=== PATIENT | female | born 1995 | race Caucasian/White ===

== ENCOUNTER 2025-01-26 18:43 | Emergency (ER) | payer OTHER, SELFPAY ==
--- OUTSIDE RECORDS SUMMARY | 2024-12-11 14:45 | XMS_ITS | Encounter Summary ---
Author Organization [facility] Address [address] [place] [address] Care Team Providers Care Roving Teller Name Role Phone RichyPromise osuna Sierra NICHOLSON Primary Care Provider Reason for Visit * Reason Comments Contact Lens Visit Encounter Details Date Type Department Care Team (Late st Contact Info) Description 12/11/2024 3:45 PM EDT Office Visit [facility] [address] [place] [address] French Corral, OD [address] [address] Keratoconus of both eyes (Primary [...] 3:45 PM EDT 12/11/2024 Subjective Patient ID: Johana Higginbotham is a 29 y.o. female. Chief [...] DAYS (Patient not taking: Reported on 11/05/2024) fgofeqejpznjgyr-puzpqrnpznaasno-QK 30-2-10 MG/5ML syrup TAKE 1 2 TEASPOON [...] tablet (Patient not taking: Reported on 11/05/2024) vxxolhjwldao-gbfxejua-lannj acid-coenzyme q10 (Preservision AREDS 2) capsule Take [...] Description 02/03/2025 11:00 AM EST Office Visit [facility] [address] [place] [address] Roma Vaz Rekha [address] [place] [id number] 04/23/2025 9:30 AM EST Office Visit [facility] [address] [place] [address] Rashid Vale MD [address] [address] documented as of this encounter [...] documented as of this encounter Care Teams Roving Teller Relationship Specialty Start Date End Date Promise Green DO [address] [place] [address] PCP - General 09/21/20 documented as of this encounter
[2025-01-26 18:45] VITALS: BP 133/84; BP 133/94; PULSE 96; RESP 16; TEMP 37.2; O2SAT 99; BMI 34.7
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
--- NOTE | 2025-01-26 19:09 | PC.NURSE ---
heart tones obtained. 147 bpm
--- NOTE | 2025-01-26 19:12 | PC.NURSE ---
Report received from Georgette JACKSON Pt awake alert and oriented Skin pink warm and dry Resp full and easy Speech clear and appropriate. at bedside
--- NOTE | 2025-01-26 19:18 | PC.NURSE ---
OB avionics technician paged for Dr. Barboza
--- NOTE | 2025-01-26 19:19 | PC.NURSE ---
Dr. Barboza speaking with OB station captain
[2025-01-26 19:22] LABS: Microscopic, Urine URINE MICROSCOPIC (MICROSCOPIC)
--- OUTSIDE RECORDS SUMMARY | 2025-01-26 19:30 | XMS_ITS | Continuity of Care Document ---
Author Organization [facility] [employer] [facility] Address [address] [place] [address] Assessment No assessment recorded. Plan of Treatment Reminders Order Date Submit Date Provider Last Modified By Organization Details Last Modified Time Details Appointments 2024 09:30A Prateek Kern III, MD Not available Not available Not available ULTRASOUN D 60 2024 09:00A M [email or web address]_Ultr asound 2 Not available Not available Not available 2024 09:45A M Peter Kern III, MD Not available Not available Not available Lab urinalysi s, dipstick 2024 025 [email or web address] [facility], [address] [facility], [place], [address], 01/14/2025 09:16:19 CBC w/ auto diff 2024 025 [facility] ([facility]), [address] [place], [address], 01/15/2025 08:13:55 RPR (rapid plasma reagin), serum 2024 025 [facility] [address] [place], [address], 01/15/2025 08:13:56 glucose tolerance test, post-50G, 1-hour 2024 025 [facility] ([facility]), [address], [place], [address], 01/15/2025 08:13:56 Referral None recorded. Procedures None recorded. Surgeries None recorded. Imaging US, obstetric , follow-up 2024 [email or web address] [facility], [facility], [place], [address], 01/14/2025 10:16:01 Medication Orders None recorded. Patient TargetsNo targets recorded. Patient Instructions Encounter Date Encounter Id Patient Instructions Last Modified By Organization Details Last Modified Time 01/14/2025 [id number] counting your baby's kicks: care instructions [email or web address] Not available 01/14/2025 09:16:19 preeclampsia education [email or web address] Not available 01/14/2025 09:16:20 labor precautions [email or web address] Not available 01/14/2025 09:16:20 Reason for Referral None Reported. Results Created Date Observation Date Name Description Value Unit Range Abnormal Flag Note LastModifiedBy Organization Detail LastModifiedTime 08/21/19 25 08/24/2024 TOXAS SURE FLEX 19, UR summary report FINAL ===== ===== ===== ===== ===== ===== ===== ===== ===== ===== ===== ===== ===== === ToxAs sure Flex 19, Ur ===== ===== ===== ===== ===== ===== ===== ===== ===== ===== ===== ===== ===== === Test Resul t Flag Units NO DRUGS DETEC ISABELL. ===== ===== ===== ===== ===== ===== ===== ===== ===== ===== ===== ===== ===== === Test Resul t Flag Units Ref Range Creat inine 60 mg/dL >=20 ===== ===== ===== ===== ===== ===== ===== ===== ===== ===== ===== ===== ===== === Decla red Medic ation s: Medic ation list was not provi ded. ===== ===== ===== ===== ===== ===== ===== ===== ===== ===== ===== ===== ===== === For clini rebecca consu ltati on, pleas e call . ===== ===== ===== ===== ===== ===== ===== ===== ===== ===== ===== ===== ===== === Not Available [facility] ([facility]) [address] [place], [address], 08/24/2024 20:11:18 08/21/19 25 08/24/2024 TOXAS SURE FLEX 19, UR pdf . Not Available [facility] ([facility]) [address] [place], [address], 08/24/2024 20:11:18 08/21/19 25 08/24/2024 TOXAS SURE FLEX 19, UR creatinine 60 mg/dL >=20 REFER ENCE RANGE : Ref Range >=20 Not Available [facility] ([facility]) [address] [place], [address], 08/24/2024 20:11:18 08/21/19 25 08/24/2024 TOXAS SURE FLEX 19, UR amphetamines ia Negati ve NG/mL cutoff :300 Not Available [facility] ([facility]) [address] [facility], [place], [address], 08/24/2024 20:11:18 08/21/19 25 08/24/2024 TOXAS SURE FLEX 19, UR benzodiazepi evie Negati ve Not Available [facility] ([facility]) [address] [place], [address], 08/24/2024 20:11:18 08/21/19 25 08/24/2024 TOXAS SURE FLEX 19, UR diazepam Not Detect ed NG/mg _crea t Not Available [facility] ([facility]) [address] [facility], [place], [address], 08/24/2024 20:11:18 08/21/19 25 08/24/2024 TOXAS SURE FLEX 19, UR desmethyldia zepam Not Detect ed NG/mg _crea t Not Available [facility] ([facility]) [address] [facility], [place], [address], 08/24/2024 20:11:18 08/21/19 25 08/24/2024 TOXAS SURE FLEX 19, UR oxazepam Not Detect ed NG/mg _crea t Not Available [facility] ([facility]) [address] [facility], [place], [address], 08/24/2024 20:11:18 08/21/19 25 08/24/2024 TOXAS SURE FLEX 19, UR temazepam Not Detect ed NG/mg _crea t Expec isabell metab olism of benzo diaze pine class drugs : Paren t Drug Detec isabell Metab olite s ----- ----- - ----- ----- ----- ----- Diaze ervin: Desme thyld iazep am, Temaz epam, Oxaze ervin Chlor diaze poxid e: Desme thyld iazep am, Oxaze ervin Clora zepat e: Desme thyld iazep am, Oxaze ervin Halaz epam: Desme thyld iazep am, Oxaze ervin Temaz epam: Oxaze ervin Oxaze ervin: None Not Available [facility] ([facility]) [address] [place], [address], 08/24/2024 20:11:18 08/21/19 25 08/24/2024 TOXAS SURE FLEX 19, UR alprazolam Not Detect ed NG/mg _crea t Not Available [facility] ([facility]) [address] [place], [address], 08/24/2024 20:11:18 08/21/19 25 08/24/2024 TOXAS SURE FLEX 19, UR alpha-hydrox yalprazolam Not Detect ed NG/mg _crea t Not Available [facility] ([facility]) [address] [place], [address], 08/24/2024 20:11:18 08/21/19 25 08/24/2024 TOXAS SURE FLEX 19, UR desalkylflur azepam Not Detect ed NG/mg _crea t Not Available [facility] ([facility]) [address] [place], [address], 08/24/2024 20:11:18 08/21/19 25 08/24/2024 TOXAS SURE FLEX 19, UR lorazepam Not Detect ed NG/mg _crea t Not Available [facility] ([facility]) [address] [place], [address], 08/24/2024 20:11:18 08/21/19 25 08/24/2024 TOXAS SURE FLEX 19, UR alpha-hydrox ytriazolam Not Detect ed NG/mg _crea t Not Available [facility] ([facility]) [address] [place], [address], 08/24/2024 20:11:18 08/21/19 25 08/24/2024 TOXAS SURE FLEX 19, UR clonazepam Not Detect ed NG/mg _crea t Not Available [facility] ([facility]) [address] [place], [address], 08/24/2024 20:11:18 08/21/19 25 08/24/2024 TOXAS SURE FLEX 19, UR 7-aminoclona zepam Not Detect ed NG/mg _crea t Not Available [facility] ([facility]) [address] [place], [address], 08/24/2024 20:11:18 08/21/19 25 08/24/2024 TOXAS SURE FLEX 19, UR midazolam Not Detect ed NG/mg _crea t Not Available [facility] ([facility]) [address] [place], [address], 08/24/2024 20:11:18 08/21/19 25 08/24/2024 TOXAS SURE FLEX 19, UR alpha-hydrox ymidazolam Not Detect ed NG/mg _crea t Not Available [facility] ([facility]) [address] [place], [address], 08/24/2024 20:11:18 08/21/19 25 08/24/2024 TOXAS SURE FLEX 19, UR flunitrazepa m Not Detect ed NG/mg _crea t Not Available [facility] ([facility]) [address] [place], [address], 08/24/2024 20:11:18 08/21/19 25 08/24/2024 TOXAS SURE FLEX 19, UR desmethylflu nitrazepam Not Detect ed NG/mg _crea t Not Available [facility] ([facility]) [address] [place], [address], 08/24/2024 20:11:18 08/21/19 25 08/24/2024 TOXAS SURE FLEX 19, UR cocaine metabolite ia Negati ve NG/mL cutoff :150 Not Available [facility] ([facility]) [address] [place], [address], 08/24/2024 20:11:18 08/21/19 25 08/24/2024 TOXAS SURE FLEX 19, UR ethanol biomarkers ia Negati ve NG/mL cutoff :500 Not Available [facility] ([facility]) [address] [place], [address], 08/24/2024 20:11:18 08/21/19 25 08/24/2024 TOXAS SURE FLEX 19, UR cannabinoids ia Negati ve NG/mL cutoff :20 Not Available [facility] ([facility]) [address] [place], [address], 08/24/2024 20:11:18 08/21/19 25 08/24/2024 TOXAS SURE FLEX 19, UR 6-acetylmorp viola ia Negati ve NG/mL cutoff :10 Not Available [facility] ([facility]) [address] [place], [address], 08/24/2024 20:11:18 08/21/19 25 08/24/2024 TOXAS SURE FLEX 19, UR opiate class ia Negati ve NG/mL cutoff :100 Not Available [facility] ([facility]) [address] [place], [address], 08/24/2024 20:11:18 08/21/19 25 08/24/2024 TOXAS SURE FLEX 19, UR oxycodone class ia Negati ve NG/mL cutoff :100 Not Available [facility] ([facility]) [address] [place], [address], 08/24/2024 20:11:18 08/21/19 25 08/24/2024 TOXAS SURE FLEX 19, UR methadone ia Negati ve NG/mL cutoff :100 Not Available [facility] ([facility]) [address] [place] [address], [address], 08/24/2024 20:11:18 08/21/19 25 08/24/2024 TOXAS SURE FLEX 19, UR methadone mtb ia Negati ve NG/mL cutoff :100 Not Available [facility] ([facility]) [address] [place] [address], [address], 08/24/2024 20:11:18 08/21/19 25 08/24/2024 TOXAS SURE FLEX 19, UR buprenorphin e ia Negati ve NG/mL cutoff :5.0 Not Available [facility] ([facility]) [address] [place] [address], [address], 08/24/2024 20:11:18 08/21/19 25 08/24/2024 TOXAS SURE FLEX 19, UR fentanyl ia Negati ve NG/mL cutoff :2.0 Not Available [facility] ([facility]) [address] [place] [address], [address], 08/24/2024 20:11:18 08/21/19 25 08/24/2024 TOXAS SURE FLEX 19, UR tapentadol ia Negati ve NG/mL cutoff :200 Not Available [facility] ([facility]) [address] [place] [address], [address], 08/24/2024 20:11:18 08/21/19 25 08/24/2024 TOXAS SURE FLEX 19, UR propoxyphene ia Negati ve NG/mL cutoff :300 Not Available [facility] ([facility]) [address] [place] [address], [address], 08/24/2024 20:11:18 08/21/19 25 08/24/2024 TOXAS SURE FLEX 19, UR tramadol ia Negati ve NG/mL cutoff :200 Not Available [facility] ([facility]) [address] [place] [address], [address], 08/24/2024 20:11:18 08/21/19 25 08/24/2024 TOXAS SURE FLEX 19, UR methylphenid ate ia Negati ve NG/mL cutoff :100 Not Available [facility] ([facility]) [address] [place], [address], 08/24/2024 20:11:18 08/21/19 25 08/24/2024 TOXAS SURE FLEX 19, UR barbiturates ia Negati ve NG/mL cutoff :200 Not Available [facility] ([facility]) [address] [place], [address], 08/24/2024 20:11:18 08/21/19 25 08/24/2024 TOXAS SURE FLEX 19, UR phencyclidin e ia Negati ve NG/mL cutoff :25 Not Available [facility] ([facility]) [address] [place], [address], 08/24/2024 20:11:18 08/21/19 25 08/24/2024 TOXAS SURE FLEX 19, UR gabapentin ia Negati ve ug/mL cutoff :1.0 Not Available [facility] ([facility]) [address] [place], [address], 08/24/2024 20:11:18 08/21/19 25 08/24/2024 TOXAS SURE FLEX 19, UR anticonvulsa nts Negati ve Not Available [facility] ([facility]) [address] [place], [address], 08/24/2024 20:11:18 08/21/19 25 08/24/2024 TOXAS SURE FLEX 19, UR pregabalin Not Detect ed Not Available [facility] ([facility]) [address] [place], [address], 08/24/2024 20:11:18 08/21/19 25 08/24/2024 TOXAS SURE FLEX 19, UR carisoprodol ia Negati ve NG/mL cutoff :100 Not Available [facility] ([facility]) [address] [place], [address], 08/24/2024 20:11:18 08/21/19 25 08/21/2024 PREGN SARAH, INITI AL SCREE N HBsAg screen Negati ve negati ve Not Available [facility] ([facility]) [address] [facility], [place], [address], 08/24/2024 20:11:19 08/21/19 25 08/21/2024 PREGN SARAH, INITI AL SCREE N HCV Ab Non Reacti ve non reacti ve Not Available [facility] ([facility]) [address] [facility], [place], [address], 08/24/2024 20:11:19 08/21/19 25 08/21/2024 PREGN SARAH, INITI AL SCREE N interpretati on: Commen t Not infec isabell with HCV unles s early or acute infec tion is suspe cted (whic h may be delay ed in an immun ocomp romis ed indiv idual ), or other evide nce exist s to indic ate HCV infec tion. Not Available [facility] ([facility]) [address] [facility], [place], [address], 08/24/2024 20:11:19 08/21/19 25 08/21/2024 PREGN SARAH, INITI AL SCREE N RPR Non Reacti ve non reacti ve Not Available [facility] ([facility]) [address] [place], [address], 08/24/2024 20:11:19 08/21/1908/21/2024 PREGN SARAH, INITI AL SCREE N rubella antibodies, IgG 8.30 index immune >0.99 Non-i mmune <0.90 Equiv ocal 0.90 - 0.99 Immun e >0.99 Not Available [facility] ([facility]) [address] [facility], [place], [address], 08/24/2024 20:11:19 08/21/19 25 08/21/2024 PREGN SARAH, INITI AL SCREE N ABO grouping AB Not Available [facility] ([facility]) [address] [facility], [place], [address], 08/24/2024 20:11:19 08/21/19 25 08/21/2024 PREGN SARAH, INITI AL SCREE N Rh factor Positi ve Pleas e note: Prior recor ds for this patie nt's ABO / Rh type are not avail able for addit ional verif icati on. Not Available [facility] ([facility]) [address] [place], [address], 08/24/2024 20:11:19 08/21/19 25 08/21/2024 PREGN SARAH, INITI AL SCREE N antibody screen Negati ve negati ve Not Available [facility] ([facility]) [address] [place], [address], 08/24/2024 20:11:19 08/21/19 25 08/21/2024 PREGN SARAH, INITI AL SCREE N HIV Ab/P24 Ag screen Non Reacti ve non reacti ve HIV-1 /HIV- 2 antib odies and HIV-1 p24 antig en were NOT detec isabell. There is no labor atory evide nce of HIV infec tion. HIV Negat kurt Not Available [facility] ([facility]) [address] [place], [address], 08/24/2024 20:11:19 08/21/19 25 08/21/2024 PREGN SARAH, INITI AL SCREE N WBC 9.9 x10e3 /uL 3.4-10 .8 normal Not Available [facility] ([facility]) [address] [place], [address], 08/24/2024 20:11:19 08/21/19 25 08/21/2024 PREGN SARAH, INITI AL SCREE N RBC 4.07 x10e6 /uL 3.77-5 .28 normal Not Available [facility] ([facility]) [address] [place], [address], 08/24/2024 20:11:19 08/21/19 25 08/21/2024 PREGN SARAH, INITI AL SCREE N hemoglobin 12.1 g/dL 11.1-1 5.9 normal Not Available [facility] ([facility]) [address] [facility], [place], [address], 08/24/2024 20:11:19 08/21/19 25 08/21/2024 PREGN SARAH, INITI AL SCREE N hematocrit 38.2 % 34.0-4 6.6 normal Not Available [facility] ([facility]) [address] [place], [address], 08/24/2024 20:11:19 08/21/19 25 08/21/2024 PREGN SARAH, INITI AL SCREE N MCV 94 fL 79-97 normal Not Available [facility] ([facility]) [address] [place], [address], 08/24/2024 20:11:19 08/21/19 25 08/21/2024 PREGN SARAH, INITI AL SCREE N MCH 29.7 pg 26.6-3 3.0 normal Not Available [facility] ([facility]) [address] [place], [address], 08/24/2024 20:11:19 08/21/19 25 08/21/2024 PREGN SARAH, INITI AL SCREE N MCHC 31.7 g/dL 31.5-3 5.7 normal Not Available [facility] ([facility]) [address] [place], [address], 08/24/2024 20:11:19 08/21/19 25 08/21/2024 PREGN SARAH, INITI AL SCREE N RDW 12.9 % 11.7-1 5.4 Not Available [facility] ([facility]) [address] [place], [address], 08/24/2024 20:11:19 08/21/19 25 08/21/2024 PREGN SARAH, INITI AL SCREE N platelets 335 x10e3 /uL 150-45 0 normal Not Available [facility] ([facility]) [address] [facility], [place], [address], 08/24/2024 20:11:19 08/21/19 25 08/21/2024 PREGN SARAH, INITI AL SCREE N neutrophils 68 % not estab. normal Not Available [facility] ([facility]) [address] [facility], [place], [address], 08/24/2024 20:11:19 08/21/19 25 08/21/2024 PREGN SARAH, INITI AL SCREE N lymphs 22 % not estab. normal Not Available [facility] ([facility]) [address] [place], [address], 08/24/2024 20:11:19 08/21/19 25 08/21/2024 PREGN SARAH, INITI AL SCREE N monocytes 7 % not estab. normal Not Available [facility] ([facility]) [address] [place], [address], 08/24/2024 20:11:19 08/21/19 25 08/21/2024 PREGN SARAH, INITI AL SCREE N eos 2 % not estab. normal Not Available [facility] ([facility]) [address] [place], [address], 08/24/2024 20:11:19 08/21/19 25 08/21/2024 PREGN SARAH, INITI AL SCREE N basos 1 % not estab. normal Not Available [facility] ([facility]) [address] [place], [address], 08/24/2024 20:11:19 08/21/19 25 08/21/2024 PREGN SARAH, INITI AL SCREE N immature cells HEAD [employer] DIRECTOR Not Available [facility] ([facility]) [address] [place], [address], 08/24/2024 20:11:19 08/21/19 25 08/21/2024 PREGN SARAH, INITI AL SCREE N neutrophils (absolute) 6.8 x10e3 /uL 1.4-7. 0 normal Not Available [facility] ([facility]) [address] [place], [address], 08/24/2024 20:11:19 08/21/19 25 08/21/2024 PREGN SARAH, INITI AL SCREE N lymphs (absolute) 2.2 x10e3 /uL 0.7-3. 1 normal Not Available [facility] ([facility]) [address] [place], [address], 08/24/2024 20:11:19 08/21/19 25 08/21/2024 PREGN SARAH, INITI AL SCREE N monocytes(ab solute) 0.7 x10e3 /uL 0.1-0. 9 normal Not Available [facility] ([facility]) [address] [place], [address], 08/24/2024 20:11:19 08/21/19 25 08/21/2024 PREGN SARAH, INITI AL SCREE N eos (absolute) 0.2 x10e3 /uL 0.0-0. 4 normal Not Available [facility] ([facility]) [address] [place], [address], 08/24/2024 20:11:19 08/21/19 25 08/21/2024 PREGN SARAH, INITI AL SCREE N baso (absolute) 0.1 x10e3 /uL 0.0-0. 2 normal Not Available [facility] ([facility]) [address] [place], [address], 08/24/2024 20:11:19 08/21/19 25 08/21/2024 PREGN SARAH, INITI AL SCREE N immature granulocytes 0 % not estab. Not Available [facility] ([facility]) [address] [facility], [place], [address], 08/24/2024 20:11:19 08/21/19 25 08/21/2024 PREGN SARAH, INITI AL SCREE N immature grans (abs) 0.0 x10e3 /uL 0.0-0. 1 Not Available [facility] ([facility]) [address] [facility], [place], [address], 08/24/2024 20:11:19 08/21/19 25 08/21/2024 PREGN SARAH, INITI AL SCREE N NRBC HEAD [employer] DIRECTOR Not Available [facility] ([facility]) [address] [facility], [place], [address], 08/24/2024 20:11:19 08/21/19 25 08/21/2024 PREGN SARAH, INITI AL SCREE N hematology comments: HEAD START DIRECTOR Not Available [facility] ([facility]) [address] [facility], [place], [address], 08/24/2024 20:11:19 08/21/19 25 08/21/2024 PREGN SARAH, INITI AL SCREE N specific gravity 1.011 1.005- 1.030 normal Not Available [facility] ([facility]) [address] [facility], [place], [address], 08/24/2024 20:11:19 08/21/19 25 08/21/2024 PREGN SARAH, INITI AL SCREE N pH 6.5 5.0-7. 5 normal Not Available [facility] ([facility]) [address] [facility], [place], [address], 08/24/2024 20:11:19 08/21/19 25 08/21/2024 PREGN SARAH, INITI AL SCREE N urine-color Yellow yellow Not Available [facility] ([facility]) [address] [facility], [place], [address], 08/24/2024 20:11:19 08/21/19 25 08/21/2024 PREGN SARAH, INITI AL SCREE N appearance Clear clear Not Available [facility] ([facility]) [address] [place], [address], 08/24/2024 20:11:19 08/21/19 25 08/21/2024 PREGN SARAH, INITI AL SCREE N WBC esterase 1+ negati ve abnormal Not Available [facility] ([facility]) [address] [place], [address], 08/24/2024 20:11:19 08/21/19 25 08/21/2024 PREGN SARAH, INITI AL SCREE N protein Negati ve negati ve/tra ce Not Available [facility] ([facility]) [address] [place], [address], 08/24/2024 20:11:19 08/21/19 25 08/21/2024 PREGN SARAH, INITI AL SCREE N glucose Negati ve negati ve Not Available [facility] ([facility]) [address] [place], [address], 08/24/2024 20:11:19 08/21/19 25 08/21/2024 PREGN SARAH, INITI AL SCREE N ketones Negati ve negati ve Not Available [facility] ([facility]) [address] [place], [address], 08/24/2024 20:11:19 08/21/19 25 08/21/2024 PREGN SARAH, INITI AL SCREE N occult blood Negati ve negati ve Not Available [facility] ([facility]) [address] [place], [address], 08/24/2024 20:11:19 08/21/19 25 08/21/2024 PREGN SARAH, INITI AL SCREE N bilirubin Negati ve negati ve Not Available [facility] ([facility]) [address] [place], [address], 08/24/2024 20:11:19 08/21/19 25 08/21/2024 PREGN SARAH, INITI AL SCREE N urobilinogen ,semi-qn 0.2 mg/dL 0.2-1. 0 normal Not Available [facility] ([facility]) [address] [place], [address], 08/24/2024 20:11:19 08/21/19 25 08/21/2024 PREGN SARAH, INITI AL SCREE N nitrite, urine Negati ve negati ve Not Available [facility] ([facility]) [address] [place], [address], 08/24/2024 20:11:19 08/21/19 25 08/21/2024 PREGN SARAH, INITI AL SCREE N microscopic examination See below: Micro scopi c was indic ated and was perfo rmed. Not Available [facility] ([facility]) [address] [facility], [place], [address], 08/24/2024 20:11:19 08/21/19 25 08/21/2024 PREGN SARAH, INITI AL SCREE N WBC 0-5 /hpf 0 - 5 Not Available [facility] ([facility]) [address] [place], [address], 08/24/2024 20:11:19 08/21/19 25 08/21/2024 PREGN SARAH, INITI AL SCREE N RBC 0-2 /hpf 0 - 2 Not Available [facility] ([facility]) [address] [place], [address], 08/24/2024 20:11:19 08/21/19 25 08/21/2024 PREGN SARAH, INITI AL SCREE N epithelial cells (non renal) 0-10 /hpf 0 - 10 Not Available [facility] ([facility]) [address] [place], [address], 08/24/2024 20:11:19 08/21/19 25 08/21/2024 PREGN SARAH, INITI AL SCREE N epithelial cells (renal) HEAD [employer] DIRECTOR Not Available [facility] ([facility]) [address] [facility], [place], [address], 08/24/2024 20:11:19 08/21/19 25 08/21/2024 PREGN SARAH, INITI AL SCREE N casts None seen /lpf none seen Not Available [facility] ([facility]) [address] [facility], [place], [address], 08/24/2024 20:11:19 08/21/19 25 08/21/2024 PREGN SARAH, INITI AL SCREE N cast type HEAD [employer] DIRECTOR Not Available [facility] ([facility]) [address] [facility], [place], [address], 08/24/2024 20:11:19 08/21/19 25 08/21/2024 PREGN SARAH, INITI AL SCREE N crystals HEAD [employer] DIRECTOR Not Available [facility] ([facility]) [address] [place], [address], 08/24/2024 20:11:19 08/21/19 25 08/21/2024 PREGN SARAH, INITI AL SCREE N crystal type HEAD [employer] DIRECTOR Not Available [facility] ([facility]) [address] [place], [address], 08/24/2024 20:11:19 08/21/19 25 08/21/2024 PREGN SARAH, INITI AL SCREE N mucus threads HEAD [employer] DIRECTOR Not Available [facility] ([facility]) [address] [place], [address], 08/24/2024 20:11:19 08/21/19 25 08/21/2024 PREGN SARAH, INITI AL SCREE N bacteria Few none seen/f ew Not Available [facility] ([facility]) [address] [place], [address], 08/24/2024 20:11:19 08/21/19 25 08/21/2024 PREGN SARAH, INITI AL SCREE N yeast HEAD START DIRECTOR Not Available [facility] ([facility]) [address], [place], [address], 08/24/2024 20:11:19 08/21/19 25 08/21/2024 PREGN SARAH, INITI AL SCREE N trichomonas HEAD START DIRECTOR Not Available [facility] ([facility]) [address], [place], [address], 08/24/2024 20:11:19 08/21/19 25 08/21/2024 PREGN SARAH, INITI AL SCREE N comment HEAD START DIRECTOR Not Available [facility] ([facility]) [address] [place], [address], 08/24/2024 20:11:19 08/21/19 25 08/21/2024 PREGN SARAH, INITI AL SCREE N microscopic examination HEAD START DIRECTOR Not Available [facility] ([facility]) [address] [place], [address], 08/24/2024 20:11:19 08/21/19 25 08/22/2024 PREGN SARAH, INITI AL SCREE N chlamydia trachomatis, SHARDA Negati ve negati ve Not Available [facility] ([facility]) [address] [place], [address], 08/24/2024 20:11:19 08/21/19 25 08/22/2024 PREGN SARAH, INITI AL SCREE N neisseria gonorrhoeae, SHARDA Negati ve negati ve Not Available [facility] ([facility]) [address] [place], [address], 08/24/2024 20:11:19 08/21/19 25 08/22/2024 PREGN SARAH, INITI AL SCREE N urine culture,pren atal, w/gbs Final report Not Available [facility] ([facility]) [address] [place], [address], 08/24/2024 20:11:19 08/21/19 25 08/22/2024 PREGN ALEXANDER SMITH N result 1 No growth Not Available [facility] ([facility]) [address], [place], [address], 08/24/2024 20:11:19 08/21/19 25 08/20/2024 urina lysis , dipst ick Leukocytes Negati ve Not Available [address], [address], 08/20/2024 15:46:47 08/21/19 25 08/20/2024 urina lysis , dipst ick Nitrite negati ve Not Available [address], [address], 08/20/2024 15:46:47 08/21/19 25 08/20/2024 urina lysis , dipst ick Urobilinogen .2 Not Available [address], [address], 08/20/2024 15:46:47 08/21/19 25 08/20/2024 urina lysis , dipst ick Protein Negati ve Not Available [address], [address], 08/20/2024 15:46:47 08/21/19 25 08/20/2024 urina lysis , dipst ick pH 6.0 Not Available [address], [address], 08/20/2024 15:46:47 08/21/19 25 08/20/2024 urina lysis , dipst ick Blood Negati ve Not Available [address], [address], 08/20/2024 15:46:47 08/21/19 25 08/20/2024 urina lysis , dipst ick Specific [place] 1.010 Not Available [address], [address], 08/20/2024 15:46:47 08/21/19 25 08/20/2024 urina lysis , dipst ick Ketone Negati ve Not Available [address], [address], 08/20/2024 15:46:47 08/21/19 25 08/20/2024 urina lysis , dipst ick Bilirubin Negati ve Not Available [address], [address], 08/20/2024 15:46:47 08/21/19 25 08/20/2024 urina lysis , dipst ick Glucose Negati ve Not Available [address], [address], 08/20/2024 15:46:47 08/21/19 25 08/20/2024 urina lysis , dipst ick Appearance Clear Not Available [address], [address], 08/20/2024 15:46:47 08/21/19 25 08/20/2024 urina lysis , dipst ick Color Yellow Not Available [address], [address], 08/20/2024 15:46:47 09/18/19 25 09/24/2024 MATER NIT21 PLUS CORE+ SCA gestation Single ton Not Available [facility] ([facility]) [address], [place], [address], 10/03/2024 13:07:36 09/18/19 25 09/24/2024 MATER NIT21 PLUS CORE+ SCA fraction 13% Not Available [facility] ([facility]) [address], [place], [address], 10/03/2024 13:07:36 09/18/19 25 09/24/2024 MATER NIT21 PLUS CORE+ SCA gestational age > or = 9W: Yes Not Available [facility] ([facility]) [address], [place], [address], 10/03/2024 13:07:36 09/18/19 25 09/24/2024 MATER NIT21 PLUS CORE+ SCA test result Negati ve Not Available [facility] ([facility]) [address], [place], [address], 10/03/2024 13:07:36 09/18/19 25 09/24/2024 MATER NIT21 PLUS CORE+ SCA organic lab worker comments Chelsie Palmer speci men showe d an expec isabell repre senta tion of chrom osome 21, 18 and 13 mater ial. Clini rebecca corre latio n is sugtasneem gilmored. Not Available [facility] ([facility]) [address], [place], [address], 10/03/2024 13:07:36 09/18/19 25 09/24/2024 MATER NIT21 PLUS CORE+ SCA approved by Chelsie roldan MD, PhD, [facility] tor, Se[place] nom Labor atori es Not Available [facility] ([facility]) [address], [place], [address], 10/03/2024 13:07:36 09/18/19 25 09/24/2024 MATER NIT21 PLUS CORE+ SCA trisomy 21 (down syndrome) Negati ve Not Available [facility] ([facility]) [address], [place], [address], 10/03/2024 13:07:36 09/18/19 25 09/24/2024 MATER NIT21 PLUS CORE+ SCA trisomy 18 (saunders syndrome) Negati ve Not Available [facility] ([facility]) [address], [place], [address], 10/03/2024 13:07:36 09/18/19 25 09/24/2024 MATER NIT21 PLUS CORE+ SCA trisomy 13 (patau syndrome) Negati ve Not Available [facility] ([facility]) [address], [place], [address], 10/03/2024 13:07:36 09/18/19 25 09/24/2024 MATER NIT21 PLUS CORE+ SCA sex Commen t Consi stent with Femal e Not Available [facility] ([facility]) [address], [place], [address], 10/03/2024 13:07:36 09/18/19 25 09/24/2024 MATER NIT21 PLUS CORE+ 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 Not Available [facility] ([facility]) [address], [place], [address], 10/03/2024 13:07:36 09/18/19 25 09/24/2024 MATER NIT21 PLUS CORE+ 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 Not Available [facility] ([facility]) [address], [place], [address], 10/03/2024 13:07:36 09/18/19 25 09/24/2024 MATER NIT21 PLUS CORE+ 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 The NPV for SCA and ESS canno t be calcu lated as SCA and ESS are only repor isabell when an abnor malit y is detec isabell. Not Available [facility] ([facility]) [address], [place], [address], 10/03/2024 13:07:36 09/18/19 25 09/24/2024 MATER NIT21 PLUS CORE+ SCA positive predictive value N/A Not Available [facility] ([facility]) [address], [place], [address], 10/03/2024 13:07:36 09/18/19 25 09/24/2024 MATER NIT21 PLUS CORE+ SCA about the test Commen t The Mater niT(R ) 21 PLUS labor atory -deve loped test (LDT) maik zes circu latin g cell- free DNA from a mater nal blood sampl e. This test is used for scree lisa purpo ses and not diagn ostic . Clini rebecca corre latio n is recom je d. Valid ation data on twin pregn ancie s is limit ed and the abili ty of this test to detec t aneup loidy in highe r multi ple gesta tions has not yet been valid ated. Not Available [facility] ([facility]) [address], [place], [address], 10/03/2024 13:07:36 09/18/19 25 09/24/2024 MATER NIT21 PLUS CORE+ SCA test method Commen t Circu latin g cell- free DNA was purif ied from the plasm a compo nent of mater nal blood . The extra cted DNA was then conve rted into a retsCloud DNA ashley ry for aneup loidy maik sis of chrom osome s 21, 18, and 13 via next gener ation seque ncing .[1] Optio nal findi ngs based on the test order inclu de sex chrom osome aneup loidy (SCA) [2], and enhan charles seque ncing serie s (ESS) [3], which will only be repor isabell on as an addit ional findi ng when an abnor malit y is detec isabell. SCA testi ng inclu zuleima infor matio n on X and Y repre senta tion, while ESS testi ng inclu zuleima delet ions in selec isabell regio ns (22q, 15q, 11q, 8q, 5p, 4p, 1p) and triso my of chrom osome s 16 and 22. Not Available [facility] ([facility]) [address], [place], [address], 10/03/2024 13:07:36 09/18/19 25 09/24/2024 MATER NIT21 PLUS CORE+ SCA performance Commen t The perfo rmanc e emma cteri stics of the Mater niT(R ) 21 PLUS labor atory -deve loped test (LDT) have been deter mined in a clini rebecca valid ation study with pregn ant women at incre ased risk for chrom osoma l aneup loidy .[1-4 ] Not Available [facility] ([facility]) [address], [place], [address], 10/03/2024 13:07:36 09/18/19 25 09/24/2024 MATER NIT21 PLUS CORE+ SCA performance characterist ics Note ----- ----- ----- ----- ----- ----- ----- ----- ----- ----- ----- ---- ! Sex ! Accur acy: 99.4% ! !---- ----- ----- ----- ----- ----- ----- ----- ----- ----- ----- ---! ! Marco A n (sejal espinal d syndr ome) ! Est. Sens# ! Est. Spec ! !---- ----- ----- ----- ----- ----- ----- ----- ----- ----- ----- ---! ! Mitcho my 21 (Down Syndr ome) ! 99.1% ! 99.9% ! !---- ----- ----- ----- ----- ----- ----- ----- ----- ----- ----- ---! ! Jadon my 18 ([place] rds Syndr ome) ! >99.9 % ! 99.6% ! !---- ----- ----- ----- ----- ----- ----- ----- ----- ----- ----- ---! ! Mitcho my 13 (Pata u Syndr ome) ! 91.7% ! 99.7% ! !---- ----- ----- ----- ----- ----- ----- ----- ----- ----- ----- ---! ! Sex Chrom osome Valeryp daniel es## ! 96.2% ! 99.7% ! !---- ----- ----- ----- ----- ----- ----- ----- ----- ----- ----- ---! * Divya whyte in ISCA datab ase nstd3 7 [http s://w [email or web address].nc bi.nl m.nih .gov/ dbvar /stud ies/n std37 / ] # Estim ated Sensi tivit y. Sensi tivit y estim ated acros s the obser sriram size distr ibuti on of each syndr ome [per ISCA datab ase nstd3 7] and acros s the range of fract ions obser sriram in routi ne clini rebecca NIPT. Actua l sensi tivit y can also be influ enced by other facto rs such as the size of the event , total seque nce count s, ampli ficat ion bias, or seque nce bias. ## Singl eton gesta tion only. Not Available [facility] ([facility]) [address], [place], [address], 10/03/2024 13:07:36 09/18/19 25 09/24/2024 MATER NIT21 PLUS CORE+ SCA limitations of the test Commen t While the resul ts of these tests are highl y relia ble, disco rdant resul ts, inclu ding inacc urate sex predi ction , may occur due to place ntal, mater nal, or mosai cism or neopl asm; vanis anthony twin; prior mater nal organ trans plant ; or other cause s. These tests are scree lisa tests and not diagn ostic ; they do not repla ce the accur acy and preci adriana of prena alden diagn osis with CVS or amnio cente sis. A patie nt with a posit kurt test resul t shoul d be refer red for marco antonio ic couns eling and offer ed invas kurt prena alden diagn osis for confi rmati on of test resul ts.[5 ] The resul ts of this testi ng, inclu ding the benef its and limit ation s, shoul d be discu ssed with a quali fied healt hcavaibhav provi yeni. Pregn sarah manag ement decis ions, inclu ding termi natio n of the pregn sarah, shoul d not be based on the resul ts of these tests alone . The healt hcavaibhav provi yeni is respo nsibl e for the use of this infor matio n in the manag ement of their patie nt. Sex chrom osoma l aneup loidi es are not repor table for known multi ple gesta tions . A negat kurt resul t does not ensur e an unaff ected pregn sarah nor does it exclu de the possi bilit y of other chrom osoma l abnor malit ies or defec ts which are not a part of these tests . An uninf ormat kurt resul t may be repor isabell, the cause s of which may inclu de, but are not limit ed to, insuf ficie nt seque ncing cover age, noise or artif acts in the regio n, ampli ficat ion or seque ncing bias, or insuf ficie nt fract ion. These tests are not inten ded to ident mike pregn ancie s at risk for neura l tube defec ts or ventr al wall defec ts. Testi ng for whole chrom osome abnor malit ies (incl uding sex chrom osome s) and for subch romos omal abnor malit ies could lead to the poten tial disco very of both and mater nal genom ic abnor malit ies that could have major , minor , or no, clini rebecca signi fican ce. Evalu ating the signi fican ce of a posit kurt or a non-r eport able resul t may invol ve both invas kurt testi ng and addit ional studi es on the mothe r. Such inves tigat ions may lead to a diagn osis of mater nal chrom osoma l or subch romos omal abnor malit ies, which on occas ion may be assoc iated with benig n or malig nant mater nal neopl asms. These tests may not accur ately ident mike tripl oidy, calderon charles rearr angem ents, or the preci se locat ion of subch romos omal dupli catio ns or delet ions; these may be detec isabell by prena alden diagn osis with CVS or amnio cente sis. The abili ty to repor t resul ts may be impac isabell by mater nal BMI, mater nal weigh t, mater nal syste celso lupus eryth emato rachele (SLE) and/o r by certa in pharm aceut ical agent s such as low molec ular weigh t hepar in (for examp le: Loven ox(R) , Xapar in(R) , Clexa ne(R) and Fragm in(R) ). Not Available [facility] ([facility]) [address], [place], [address], 10/03/2024 13:07:36 09/18/19 25 09/24/2024 MATER NIT21 PLUS CORE+ SCA note Chelsie moser Canary. is a subsi diary of Labor atory Corpo ratio n of [employer], using the brand [employer]. This test was devel oped and its perfo rmanc e emma cteri stics deter mined by [employer]. It has not been clear ed or appro sriram by the Food and Drug Admin istra tion. This labor atory is certi fied under the Clini rebecca Labor atory Impro vemen t Amend ments (CLIA ) as quali fied to perfo rm high compl exity clini rebecca labor atory testi ng and accre dited by the Lana boateng of [employer] Patho logis ts (CAP) . If there is futur e clini rebecca need for addin g Mater niT GENOM E testi ng, this speci men will be avail able until term. [facility] sampl es will not be retai vonda beyon d 60 days. [facility] nts will have to send a new sampl e for re-se quenc ing ([facility] Test Code: 22874 4). Not Available [facility] ([facility]) [address], [place], [address], 10/03/2024 13:07:36 09/18/19 25 09/24/2024 MATER NIT21 PLUS CORE+ SCA references Chelsie t 1. Kasey BOATENG, et al. Marco Antonio Med. 2012; 14(3) :296- 305. 2. Daniel HASSAN, et al. Prena t Diag. 2013; 33(6) :591- 597. 3. Tommy C, et al. Clin Chem. 2015 Jun;6 1(4): 608-6 16. 4. Kasey BOATENG, et al. Marco Antonio Med. 2011; 13(11 ):913 -920. 5. ACOG/ SMFM Pract ice Bulle tin No. 226, Dec 2019. Not Available [facility] ([facility]) [address], [place], [address], 10/03/2024 13:07:36 09/18/19 25 09/24/2024 MATER NIT21 PLUS CORE+ SCA pdf . Not Available [facility] ([facility]) [address], [place], [address], 10/03/2024 13:07:36 09/18/19 25 10/03/2024 INHER ITEST (R) CORE PANEL genes Commen t 3 genes Not Available [facility] ([facility]) [address], [place], [address], 10/03/2024 13:07:37 09/18/19 25 10/03/2024 INHER ITEST (R) CORE PANEL ethnicity Commen t Not Provi ded Not Available [facility] ([facility]) [address], [place], [address], 10/03/2024 13:07:37 09/18/19 25 10/03/2024 INHER ITEST (R) CORE PANEL specimen type Commen t Whole Blood Not Available [facility] ([facility]) [address], [place], [address], 10/03/2024 13:07:37 09/18/19 25 10/03/2024 INHER ITEST (R) CORE PANEL genetic counselor HEAD START DIRECTOR Not Available [facility] ([facility]) [address], [place], [address], 10/03/2024 13:07:37 09/18/19 25 10/03/2024 INHER ITEST (R) CORE PANEL indication Commen t Ana er Test / Scree lisa Not Available [facility] ([facility]) [address], [place], [address], 10/03/2024 13:07:37 09/18/19 25 10/03/2024 INHER ITEST (R) CORE PANEL result: Commen t NEGAT KURT Not Available [facility] ([facility]) [address], [place], [address], 10/03/2024 13:07:37 09/18/19 25 10/03/2024 INHER ITEST (R) CORE PANEL interpretati on Commen t Negat kurt Resul ts Disor ders (Gene ) Resul t Inter preta tion Cysti c fibro sis NEGAT KURT This resul t reduc es, CFTR NM_00 0492. 4 but does not elimi noam, the risk to be a ana er. Risk: NOT at an incre ased risk for an affec isabell pregn sarah. Fragi le X NEGAT KURT : PCR Not a naa er of a syndr ome FMR1 repea ts: 29 fragi le X expan adriana. NM_00 2023. 6 and 52 Risk: NOT at an incre ased risk for an affec isabell pregn sarah. Minor incre ases and decre ases in the size of inter media te allel es (45-5 4 repea ts) may occur when they are passe d to futur e gener ation s. Spina l muscu lar NEGAT KURT : 2 This resul t reduc es, atrop hy SMN1 copie s of but does not NM_00 0344. 4 SMN1; elimi noam, the risk c.*3+ 80T>G to be a ana er. risk varia nt Risk: NOT at an not prese nt. incre ased risk for an affec isabell pregn sarah. Not Available [facility] ([facility]) [address], [place], [address], 10/03/2024 13:07:37 09/18/19 25 10/03/2024 INHER ITEST (R) CORE PANEL general comments HEAD START DIRECTOR Not Available [facility] ([facility]) [address], [place], [address], 10/03/2024 13:07:37 09/18/19 25 10/03/2024 INHER ITEST (R) CORE PANEL recommendati ons Commen t If the above resul t is posit kurt, marco antonio ic couns george is recom je d to discu ss the poten tial clini rebecca and/o r repro ducti ve impli catio ns, as well as recom menda tions for testi ng famil y membe rs and, when appli cable , this indiv idual 's partn er. Marco Antonio ic couns george servi jerrica are avail able. To acces s [facility] Antonio ic Couns yaneli johnson e visit [email or web address] :[email or web address] orp.c om/ge netic -coun thi mock or call (025) -[facility] ([phone]). Not Available [facility] ([facility]) [address], [place], [address], 10/03/2024 13:07:37 09/18/19 25 10/03/2024 INHER ITEST (R) CORE PANEL additional clinicalinfo rmation HEAD START DIRECTOR Not Available [facility] ([facility]) [address], [place], [address], 10/03/2024 13:07:37 09/18/19 25 10/03/2024 INHER ITEST (R) CORE PANEL comments Commen t This inter preta tion is based on the clini rebecca infor matio n provi ded and the curre nt under stand ing of the molec ular marco antonio ics of the disor yeni(s ) teste d. Infor matio n about the disor yeni(s ) teste d is avail able at https ://[facility] orp.c om. Not Available [facility] ([facility]) [address], [place], [address], 10/03/2024 13:07:37 09/18/19 25 10/03/2024 INHER ITEST (R) CORE PANEL methods/limi tations Commen t Next- gener ation Seque ncing (NGS) : Genom ic regio ns of inter est are selec isabell using the Appia ience (R) hybri dizat ion captu re metho d and seque nced via the Illum efrain(R ) NGS platf orm. Seque ncing reads are align ed to the human genom e refer ence GRCh3 7/hg1 9 build . Regio ns of inter est inclu de codin g exons , intro n/exo n junct ions (typi tori +/- 20 nucle otide s) and addit ional genom ic regio ns with known signi fican t patho genic varia nts. Maik tical sensi tivit y is estim ated to be >99% for singl e nucle otide varia nts and small inser tions /jenna tions . Varia nt detec tion is perfo rmed by ARIC N CLC Genom ics and in-ho use algor ithms . Singl e exon delet ions or dupli catio ns can be detec isabell in the CFTR gene with estim ated overa ll maik tical sensi tivit y >99%. Preci se break point s are not repor isabell. Singl e-exo n delet ions or dupli catio ns are not detec isabell in some cases due to CNV size limit ation s, or due to isola isabell data quali ty varia tion or intri nsic seque nce prope rties . Confi rmato ry testi ng by ortho gonal techn ologi es may inclu de Sange r seque ncing , or MLPA maik sis. Repor isabell varia nts: Patho genic and likel y patho genic varia nts are repor isabell for all tests . Varia nts of uncer tain signi fican ce are not repor isabell for any Inher itest ana er panel or for Cysti c Fibro sis Full- gene Ana er Scree n. Varia nts of uncer tain signi fican ce are repor isabell with all GeneS eq PLUS test codes unles s VUS opt out is selec isabell. Benig n and likel y benig n varia nts are not repor isabell. Varia nts are speci fied using the numbe ring and nomen clatu re recom je d by the Human Genom e Varia tion Socie ty (HGVS , http: //www .hgvs .org/ ). Varia nt class ifica tion and confi rmati on are consi stent with ACMG stand ards and guide lines (Rich ards, PMID: [id number]; Ileana, PMID: [id number]). Detai led varia nt class ifica tion infor matio n and varia nt reeva luati on are avail able upon reque st. Fragi le X Syndr ome: PCR maik sis with fluor escen t prime rs is used to ampli fy the CGG repea t regio n of the FMR1 gene and Amelo genin loci on the X and Y chrom osome s. PCR produ cts are sized using capil justus elect ropho resis and GeneM apper fragm ent maik sis softw are. The repor table CGG repea t range s are: negat kurt: <45; inter media te: 45-54 ; premu tatio n: 55-20 0; full mutat ion: >200. Postn atal femal e sampl es with premu tatio ns of 55-90 repea ts are refle xed to asses s AGG inter rupti ons withi n the CGG repea ts. The predi cted risk for the premu tatio n to expan d to a full mutat ion in the next gener ation is based on the size of the premu tatio n and the numbe r of AGG inter rupti ons. If indic ated, methy latio n PCR maik sis using methy latio n-spe cific immun oprec ipita tion is perfo rmed. Relat kurt amoun ts of methy lated and unmet hylat ed produ cts are asses sed to deter mine the methy latio n statu s: unmet hylat ed, parti ally methy lated , or compl etely methy lated . The maik tical sensi tivit y of this assay for the detec tion of expan ded allel es in the FMR1 gene is estim ated to be >99%. Repro ducib ility of repea t numbe rs is typic ally 1 for allel es conta ining up to 60 repea ts, 3 for allel es with 61-11 9 repea ts, and 10 for allel es with >119 repea ts. Low level s of mosai cism and FMR1 varia nts unrel ated to trinu cleot arielle expan adriana are not detec isabell by this assay . Spina l muscu lar atrop hy: The copy numbe r of SMN1 exon 7 is asses sed relat kurt to inter nal stand tresa refer ence genes by quant itati ve polym erase chain react ion (qPCR ). A mathe matic al algor ithm calcu lates 0, 1, 2 and 3 copie s with stati stica l confi dence . In speci mens and speci mens with 0 or 1 copie s, the prime r and probe geovanni ng sites are seque nced to rule out varia nts that could inter fere with copy numbe r maik sis. SMN2 copy numbe r is asses sed by digit al dropl et PCR maik sis relat kurt to an inter nal stand tresa refer ence gene in sampl es with no copie s of SMN1. For ana er scree lisa, when two copie s of SMN1 are detec isabell, allel ic discr imina tion qPCR targe bert c.*3+ 80T>G in SMN1 is perfo rmed. Limit ation s: Techn ologi es used do not detec t germl ine mosai cism and do not rule out the prese nce of large chrom osoma l aberr ation s inclu ding rearr angem ents and gene fusio ns, or varia nts in regio ns or genes not inclu ded in this test, or possi ble inter /intr ageni c inter actio ns betwe en varia nts, or repea t expan sions . Varia nt class ifica tion and/o r inter preta tion may simons e over time if more infor matio n becom es avail able. False posit kurt or false negat kurt resul ts may occur for reaso ns that inclu de: rare marco antonio ic varia nts, sex chrom osome abnor malit ies, pseud ogene inter feren ce, blood trans fusio ns, bone marro w trans plant ation , somat ic or tissu e-spe cific mosai cism, misla beled sampl es, or abhishek eous repre senta tion of famil y relat ionsh ips. This test was devel oped and its perfo rmanc e emma cteri stics deter mined by [employer]. It has not been clear ed or appro sriram by the Food and Drug Admin istra tion. EsNapartner carlos Marco Antonio ic [employer] is a subsi diary of Labor atory [employer] n of [employer], using the brand [employer]. Inher itest (R) and GeneS eq(R) are axel tered servi ce marroquin of Labor atory [employer] n of [employer]. Not Available [facility] ([facility]) [address], [place], [address], 10/03/2024 13:07:37 09/18/19 25 10/03/2024 INHER ITEST (R) CORE PANEL references Commen t Brandt HASSAN, Roxanna i M, Dashawn an S et al. Scree lisa for autos omal reces sive and X-yanira ked condi tions durin g pregn sarah and preco ncept ion: a pract ice resou rce of the [employer] Colle ge of Medic al Marco Antonio ics and Genom ics ([facility] ). Marco Antonio Med 23, 6312 (2020 ). PMID: [id number] Not Available [facility] ([facility]) [address], [place], [address], 10/03/2024 13:07:37 09/18/19 25 10/03/2024 INHER ITEST (R) CORE PANEL disorders tested Commen t Cysti c fibro sis (1 gene) . Autos omal reces sive: CFTR Fragi le X syndr ome (1 gene) . X-yanira ked: FMR1. Males are not teste d for X-yanira ked disor ders. Spina l muscu lar atrop hy (1 gene) . Autos omal reces sive: SMN1 Not Available [facility] ([facility]) [address], [place], [address], 10/03/2024 13:07:37 09/18/19 25 10/03/2024 INHER ITEST (R) CORE PANEL director review/relea se Jeremiahen t [place] nent Type Perfo rmed At Labor atory Dire tor Techn ical Esote carlos Marco Antonio ic Sheila Jones, PhD, compo nent, [employer] atori [employer], [employer], [employer] proce ssing [address] , [place], [place], [address] Techn ical Esote carlos Marco Antonio ic Sheila Jones, PhD, compo nent, [employer]ronutria atori [employer], [employer], [employer] maik sis [address] , [place], [place], [address] Profe ssion al Esote carlos Marco Antonio selwyn Jones, PhD, compo nent [employer], [employer] [address] [place], [address] [facility] daniel relea sed by David Root , PhD, [employer] Not Available [facility] ([facility]) [address], [place], [address], 10/03/2024 13:07:37 09/18/19 25 10/03/2024 INHER ITEST (R) CORE PANEL pdf . Not Available [facility] ([facility]) [address], [place], [address], 10/03/2024 13:07:37 09/18/19 25 10/03/2024 INHER ITEST (R) CORE PANEL patient gender Female Not Available [facility] ([facility]) [address], [place], [address], 10/03/2024 13:07:37 09/18/19 25 09/17/2024 urina lysis , dipst ick Leukocytes Trace Not Available [place] [address], [place], [address], 09/16/2024 16:35:06 09/18/19 25 09/17/2024 urina lysis , dipst ick Nitrite negati ve Not Available [place] [address] [place], [address], 09/16/2024 16:35:06 09/18/19 25 09/17/2024 urina lysis , dipst ick Urobilinogen .2 Not Available [address] [place], [address], 09/16/2024 16:35:06 09/18/19 25 09/17/2024 urina lysis , dipst ick Protein Negati ve Not Available [address], [address], 09/16/2024 16:35:06 09/18/19 25 09/17/2024 urina lysis , dipst ick pH 6.0 Not Available [address], [address], 09/16/2024 16:35:06 09/18/19 25 09/17/2024 urina lysis , dipst ick Blood Negati ve Not Available [address], [address], 09/16/2024 16:35:06 09/18/19 25 09/17/2024 urina lysis , dipst ick Specific [place] 1.020 Not Available [place] [address] [place], [address], 09/16/2024 16:35:06 09/18/19 25 09/17/2024 urina lysis , dipst ick Ketone Negati ve Not Available [address], [address], 09/16/2024 16:35:06 09/18/19 25 09/17/2024 urina lysis , dipst ick Bilirubin Negati ve Not Available [address], [address], 09/16/2024 16:35:06 09/18/19 25 09/17/2024 urina lysis , dipst ick Glucose Negati ve Not Available [address], [address], 09/16/2024 16:35:06 09/18/19 25 09/17/2024 urina lysis , dipst ick Appearance Clear Not Available [address], [address], 09/16/2024 16:35:06 09/18/19 25 09/17/2024 urina lysis , dipst ick Color Yellow Not Available [address], [address], 09/16/2024 16:35:06 10/23/19 25 10/22/2024 urina lysis , dipst ick Leukocytes Negati ve Not Available [address], [address], 10/21/2024 14:42:06 10/23/1910/22/2024 urina lysis , dipst ick Nitrite negati ve Not Available [address], [address], 10/21/2024 14:42:06 0810/22/2024 urina lysis , dipst ick Urobilinogen .2 Not Available [place] [address] [place], [address], 10/21/2024 14:42:06 10/23/19 25 10/22/2024 urina lysis , dipst ick Protein Negati ve Not Available [address], [address], 10/21/2024 14:42:06 10/23/19 25 10/22/2024 urina lysis , dipst ick pH 6.0 Not Available [address], [address], 10/21/2024 14:42:06 10/23/19 25 10/22/2024 urina lysis , dipst ick Blood Negati ve Not Available [address], [address], 10/21/2024 14:42:06 10/23/1910/22/2024 urina lysis , dipst ick Specific [place] 1.020 Not Available [address], [address], 10/21/2024 14:42:06 10/23/1910/22/2024 urina lysis , dipst ick Ketone Negati ve Not Available [address], [address], 10/21/2024 14:42:06 10/23/19 25 10/22/2024 urina lysis , dipst ick Bilirubin Negati ve Not Available [address], [address], 10/21/2024 14:42:06 10/23/19 25 10/22/2024 urina lysis , dipst ick Glucose Negati ve Not Available [address], [address], 10/21/2024 14:42:06 10/23/19 25 10/22/2024 urina lysis , dipst ick Appearance Clear Not Available [address], [address], 10/21/2024 14:42:06 10/23/1910/22/2024 urina lysis , dipst ick Color Yellow Not Available [address], [address], 10/21/2024 14:42:06 12/18/1912/17/2024 urina lysis , dipst ick Leukocytes Negati ve Not Available [address], [address], 12/16/2024 20:31:06 12/18/19 25 12/17/2024 urina lysis , dipst ick Nitrite negati ve Not Available [address], [address], 12/16/2024 20:31:06 12/18/19 25 12/17/2024 urina lysis , dipst ick Urobilinogen .2 Not Available [address], [address], 12/16/2024 20:31:06 12/18/19 25 12/17/2024 urina lysis , dipst ick Protein Negati ve Not Available [address], [address], 12/16/2024 20:31:06 12/18/19 25 12/17/2024 urina lysis , dipst ick pH 6.0 Not Available [address], [address], 12/16/2024 20:31:06 12/18/19 25 12/17/2024 urina lysis , dipst ick Blood Negati ve Not Available [address], [address], 12/16/2024 20:31:06 12/18/1912/17/2024 urina lysis , dipst ick Specific [place] 1.020 Not Available [address], [address], 12/16/2024 20:31:06 12/18/19 25 12/17/2024 urina lysis , dipst ick Ketone Negati ve Not Available [address], [address], 12/16/2024 20:31:06 12/18/19 25 12/17/2024 urina lysis , dipst ick Bilirubin Negati ve Not Available [address], [address], 12/16/2024 20:31:06 12/18/19 25 12/17/2024 urina lysis , dipst ick Glucose Negati ve Not Available [address], [address], 12/16/2024 20:31:06 12/18/19 25 12/17/2024 urina lysis , dipst ick Appearance Clear Not Available [address], [address], 12/16/2024 20:31:06 12/18/1912/17/2024 urina lysis , dipst ick Color Yellow Not Available [facility] [address] [facility], [place], [address], 12/16/2024 20:31:06 01/15/2001/14/2025 CBC WITH DIFFE RENTI AL/PL ATELE T WBC 10.8 x10e3 /uL 3.4-10 .8 normal Not Available [facility] ([facility]) [address] [place], [address], 01/15/2025 08:13:55 01/15/20 25 01/14/2025 CBC WITH DIFFE RENTI AL/PL ATELE T RBC 3.29 x10e6 /uL 3.77-5 .28 below low normal Not Available [facility] ([facility]) [address] [place], [address], 01/15/2025 08:13:55 01/15/2001/14/2025 CBC WITH DIFFE RENTI AL/PL ATELE T hemoglobin 9.8 g/dL 11.1-1 5.9 below low normal Not Available [facility] ([facility]) [address] [place], [address], 01/15/2025 08:13:55 01/15/2001/14/2025 CBC WITH DIFFE RENTI AL/PL ATELE T hematocrit 30.0 % 34.0-4 6.6 below low normal Not Available [facility] ([facility]) [address] [place], [address], 01/15/2025 08:13:55 01/15/20 25 01/14/2025 CBC WITH DIFFE RENTI AL/PL ATELE T MCV 91 fL 79-97 normal Not Available [facility] ([facility]) [address] [facility] [place], [address], 01/15/2025 08:13:55 01/15/2001/14/2025 CBC WITH DIFFE RENTI AL/PL ATELE T MCH 29.8 pg 26.6-3 3.0 normal Not Available [facility] ([facility]) [address], [place], [address], 01/15/2025 08:13:55 01/15/2001/14/2025 CBC WITH DIFFE RENTI AL/PL ATELE T MCHC 32.7 g/dL 31.5-3 5.7 normal Not Available [facility] ([facility]) [address], [place], [address], 01/15/2025 08:13:55 01/15/2001/14/2025 CBC WITH DIFFE RENTI AL/PL ATELE T RDW 12.5 % 11.7-1 5.4 Not Available [facility] ([facility]) [address], [place], [address], 01/15/2025 08:13:55 01/15/2001/14/2025 CBC WITH DIFFE RENTI AL/PL ATELE T platelets 264 x10e3 /uL 150-45 0 normal Not Available [facility] ([facility]) [address] [place], [address], 01/15/2025 08:13:55 01/15/2001/14/2025 CBC WITH DIFFE RENTI AL/PL ATELE T neutrophils 72 % not estab. normal Not Available [facility] ([facility]) [address] [place], [address], 01/15/2025 08:13:55 01/15/2001/14/2025 CBC WITH DIFFE RENTI AL/PL ATELE T lymphs 19 % not estab. normal Not Available [facility] ([facility]) [address] [place], [address], 01/15/2025 08:13:55 01/15/2001/14/2025 CBC WITH DIFFE RENTI AL/PL ATELE T monocytes 6 % not estab. normal Not Available [facility] ([facility]) [address] [place], [address], 01/15/2025 08:13:55 01/15/2001/14/2025 CBC WITH DIFFE RENTI AL/PL ATELE T eos 2 % not estab. normal Not Available [facility] ([facility]) [address] [place], [address], 01/15/2025 08:13:55 01/15/2001/14/2025 CBC WITH DIFFE RENTI AL/PL ATELE T basos 0 % not estab. normal Not Available [facility] ([facility]) [address], [place], [address], 01/15/2025 08:13:55 01/15/2001/14/2025 CBC WITH DIFFE RENTI AL/PL ATELE T immature cells HEAD START DIRECTOR Not Available [facility] ([facility]) [address] [place], [address], 01/15/2025 08:13:55 01/15/2001/14/2025 CBC WITH DIFFE RENTI AL/PL ATELE T neutrophils (absolute) 7.8 x10e3 /uL 1.4-7. 0 above high normal Not Available [facility] ([facility]) [address] [place], [address], 01/15/2025 08:13:55 01/15/2001/14/2025 CBC WITH DIFFE RENTI AL/PL ATELE T lymphs (absolute) 2.0 x10e3 /uL 0.7-3. 1 normal Not Available [facility] ([facility]) [address] [place], [address], 01/15/2025 08:13:55 01/15/20 25 01/14/2025 CBC WITH DIFFE RENTI AL/PL ATELE T monocytes(ab solute) 0.6 x10e3 /uL 0.1-0. 9 normal Not Available [facility] ([facility]) [address], [place], [address], 01/15/2025 08:13:55 01/15/20 25 01/14/2025 CBC WITH DIFFE RENTI AL/PL ATELE T eos (absolute) 0.2 x10e3 /uL 0.0-0. 4 normal Not Available [facility] ([facility]) [address], [place], [address], 01/15/2025 08:13:55 01/15/20 25 01/14/2025 CBC WITH DIFFE RENTI AL/PL ATELE T baso (absolute) 0.0 x10e3 /uL 0.0-0. 2 normal Not Available [facility] ([facility]) [address], [place], [address], 01/15/2025 08:13:55 01/15/2001/14/2025 CBC WITH DIFFE RENTI AL/PL ATELE T immature granulocytes 1 % not estab. Not Available [facility] ([facility]) [address] [place], [address], 01/15/2025 08:13:55 01/15/20 25 01/14/2025 CBC WITH DIFFE RENTI AL/PL ATELE T immature grans (abs) 0.1 x10e3 /uL 0.0-0. 1 Not Available [facility] ([facility]) [address] [place], [address], 01/15/2025 08:13:55 01/15/20 25 01/14/2025 CBC WITH DIFFE RENTI AL/PL ATELE T NRBC HEAD START DIRECTOR Not Available [facility] ([facility]) [address] [place], [address], 01/15/2025 08:13:55 01/15/2001/14/2025 CBC WITH DIFFE RENTI AL/PL ATELE T hematology comments: HEAD START DIRECTOR Not Available [facility] ([facility]) [address], [place], [address], 01/15/2025 08:13:55 01/15/2001/15/2025 RPR, RFX QN RPR/C ONFIR M TP RPR Non Reacti ve non reacti ve Not Available [facility] ([facility]) [address], [place], [address], 01/15/2025 08:13:56 01/15/2001/15/2025 GEST. DIABE FLASH 1-HR SCREE N gestational diabetes screen 144 mg/dL 70-139 above high normal Accor ding to ADA, a gluco se thres hold of >139 mg/dL after 50-gr am load ident ifies appro ximat caitlyn 80% of women with gesta ivy l diabe flash melli tus, while the sensi tivit y is furth er incre ased to appro ximat caitlyn 90% by a thres hold of >129 mg/dL . Not Available [facility] ([facility]) [address], [place], [address], 01/15/2025 08:13:56 01/15/2001/14/2025 urina lysis , dipst ick Leukocytes Negati ve Not Available [facility] [address] [facility] [place], [address], 01/13/2025 19:30:21 01/15/2001/14/2025 urina lysis , dipst ick Nitrite negati ve Not Available [facility] [address] [facility] [place], [address], 01/13/2025 19:30:21 01/15/2001/14/2025 urina lysis , dipst ick Urobilinogen .2 Not Available [facility] [address], [place], [address], 01/13/2025 19:30:21 01/15/2001/14/2025 urina lysis , dipst ick Protein Negati ve Not Available [place] [address] [place], [address], 01/13/2025 19:30:21 01/15/2001/14/2025 urina lysis , dipst ick pH 7.0 Not Available [address], [address], 01/13/2025 19:30:21 01/15/2001/14/2025 urina lysis , dipst ick Blood Negati ve Not Available [place] [address] [place], [address], 01/13/2025 19:30:21 01/15/2001/14/2025 urina lysis , dipst ick Specific [place] 1.015 Not Available [place] [address] [place], [address], 01/13/2025 19:30:21 01/15/2001/14/2025 urina lysis , dipst ick Ketone Negati ve Not Available [address], [address], 01/13/2025 19:30:21 01/15/2001/14/2025 urina lysis , dipst ick Bilirubin Negati ve Not Available [address] [place], [address], 01/13/2025 19:30:21 01/15/20 25 01/14/2025 urina lysis , dipst ick Glucose Negati ve Not Available [address], [place], [address], 01/13/2025 19:30:21 01/15/2001/14/2025 urina lysis , dipst ick Appearance Clear Not Available [address], [address], 01/13/2025 19:30:21 01/15/2001/14/2025 urina lysis , dipst ick Color Yellow Not Available [address], [address], 01/13/2025 19:30:21 08/21/19 25 08/20/2024 US, obste tric No observ ation record ed. [email or web address] [address], [address], 08/23/2024 18:14:12 10/22/19 US, obste tric No observ ation record ed. [email or web address] [address], [address], 10/22/2024 09:32:01 11/20/19 25 11/19/2024 US, obste tric No observ ation record ed. [email or web address] [address], [address], 11/19/2024 12:32:34 11/20/19 25 11/19/2024 US, obste tric No observ ation record ed. [email or web address] [address], [address], 11/19/2024 12:32:30 Result Notes None recorded. Problems Name Problem SNOMED Code Status Onset Date Resolution Date Notes Provider Name and Address Organization Details Recorded Time Acne 62909044 Active 2022 Briana Greer, C[facility] [address] [place], [address], [employer] 3 12:10:09 81318829 Active 2024 Katie Stu michael, [employer] 5 15:36:25 Family history of complete trisomy 21 syndrome 659114239 Active 2024 Janice Lynne CNM [address] [place] [address], [address], [employer] 5 16:10:38 Family history of disorder 967970669 Active 2024 She has some FH down syndrome on her dad's side and FOB has a brother w Kleinfeltn er's syndrome; NIPT low risk/femal e Janice Lynne CNM [address] [place] [address], [address], [employer] 5 09:36:17 Family history of disorder 388396324 Active 2024 She has some FH down syndrome on her dad's side and FOB has a brother w Kleinfeltn er's syndrome; NIPT low risk/femal e Janice Lynne CNM [address] [place] [address], [address], [employer] 5 09:36:17 Anemia of 21764574 Active 2024 dx at 28 wks iron studies ordered oral iron initiated iron infusions requested Janice Lynne CNM [address] [place] [address], [address], [employer] 5 15:27:15 Anemia of 79188378 Active 2024 dx at 28 wks iron studies ordered oral iron initiated iron infusions requested Janice Lynne CNM [address] [place], [address], [employer] 5 15:27:14 Iron deficiency anemia of 703926798 Active 2024 Janice Lynne CNM [address] [place], [address], [employer] 5 21:05:59 Problem Notes None recorded. Procedures Surgical History Date Name Laterality Status Provider Name and Address Organization Details Recorded Time 2 Date of Last Pap Smear completed Tram Nolberto [employer] [place]. 10/29/2023 11:28:33 Gallbladder Surgery completed Katie [facility]. 08/20/2024 15:38:58 Imaging Results None recorded. Procedure Notes None recorded. Medical Equipment None Reported. Allergies No known drug allergies Medications Name Sig Start Date Stop Date Status Note LastModified by Organization Details LastModified Time fluoxetine 40 mg capsule TAKE 1 CAPSULE BY MOUTH EVERY DAY active Not Available Not Available No t Available amoxicillin 500 mg capsule TAKE 1 CAPSULE BY MOUTH EVERY 8 HOURS UNTIL FINISHED 08/18 completed Not Available Not Available Not Available promethazin e-DM 6.25 mg-15 mg/5 mL oral syrup TAKE 5 MILLILITE RS BY MOUTH EVERY 6 HOURS NEEDED FOR COUGH/CON GESTION/D RAINAGE 10/28 completed Not Available Not Available Not Available azithromyci n 250 mg tablet TAKE 2 TABLETS BY MOUTH TODAY, THEN TAKE 1 TABLET DAILY FOR 4 DAYS DIRECTED 10/28 completed Not Available Not Available Not Available fluconazole 150 mg tablet Take 1 tablet every 72 hours by oral route. 08/18 completed Not Available Not Available Not Available hydrocodone 5 mg-acetamin ophen 325 mg tablet TAKE 1 TABLET BY MOUTH EVERY FOUR HOURS NEEDED FOR MODERATE PAIN: 4-6 PAIN SCALE 08/20 completed Not Available Not Available Not Available sucralfate 1 gram tablet TAKE 1 TABLET BY MOUTH FOUR TIMES A DAY 10/28 completed Not Available Not Available Not Available benzoyl peroxide 10 % topical cleanser WASH THE AFFECTED AREA(S) BY TOPICAL ROUTE ONCE DAILY 10/28 completed Not Available Not Available Not Available Advair Diskus 100 mcg-50 mcg/dose powder for inhalation INHALE 1 PUFF DIRECTED TWICE A DAY RINSE MOUTH AFTER USE. 08/20 completed Not Available Not Available Not Available metronidazo le 500 mg tablet TAKE 1 TABLET BY MOUTH TWICE A DAY FOR 7 DAYS 09/01 completed Not Available Not Available Not Available fexofenadin e 180 mg tablet TAKE 1 TABLET BY MOUTH EVERY DAY active Not Available Not Available No t Available tretinoin 0.05 % topical cream APPLY 1 APPLICATI ON AT BEDTIME TOPICALLY 10/28 completed Not Available Not Available Not Available sulfamethox azole 800 mg-trimetho prim 160 mg tablet TAKE 1 TABLET BY MOUTH TWICE A DAY 08/18 completed Not Available Not Available Not Available acetaminoph en 500 mg tablet TAKE 2 TABLETS BY MOUTH EVERY 8 HOURS NEEDED FOR MILD PAIN (1-3 ON PAIN SCALE) 08/20 completed Not Available Not Available Not Available triamcinolo ne acetonide 0.1 % topical cream APPLY TO AFFECTED AREA TWICE A DAY FOR 2 WEEKS 05/11 completed Not Available Not Available Not Available amoxicillin 500 mg tablet TAKE 1 TABLET BY MOUTH 3 TIMES A DAY 05/11 completed Not Available Not Available Not Available amoxicillin 875 mg tablet TAKE 1 TABLET BY MOUTH TWICE A DAY FOR 10 DAYS 10/28 completed Not Available Not Available Not Available famotidine 20 mg tablet TAKE 1 TABLET BY MOUTH EVERY 12 HOURS FOR 10 DAYS 08/20 completed Not Available Not Available Not Available pantoprazol e 40 mg tablet,annette yed release TAKE 1 TABLET BY MOUTH DAILY active Not Available Not Available No t Available erythromyci n 5 mg/gram (0.5 %) eye ointment APPLY 1 CM RIBBON TO EYELIDS EVERY 4 TO 6 HOURS 10/28 completed Not Available Not Available Not Available triamcinolo ne acetonide 0.1 % topical ointment APPLY 1 APPLICATI ON ON SKIN TWICE DAILY 08/20 completed Not Available Not Available Not Available lansoprazol e 30 mg capsule,del ayed release TAKE 1 CAPSULE BY MOUTH EVERY DAY 10/28 completed Not Available Not Available Not Available promethazin e 25 mg tablet TAKE 0.5-1 TABLET BY MOUTH EVERY 6 HOURS NEEDED NAUSEA/VO MITING 10/28 completed Not Available Not Available Not Available nystatin-tr iamcinolone 100,000 unit/g-0.1 % topical cream APPLY ON SKIN TWICE DAILY 10/28 completed Not Available Not Available Not Available fluoxetine 10 mg capsule take 1 capsule (10 mg) by oral route once daily 05/11 completed Not Available Not Available Not Available montelukast 10 mg tablet TAKE 1 TABLET BY MOUTH EVERY DAY EVERY EVENING 09/01 completed Not Available Not Available Not Available epinephrine 0.3 mg/0.3 mL injection, auto-inject or INJECT 0.3 ML INTRAMUSC ULARLY ONCE NEEDED FOR ANAPHYLAX IS active Not Available Not Available No t Available ibuprofen 600 mg tablet TAKE 1 TABLET BY MOUTH EVERY 6 HOURS NEEDED FOR MILD PAIN (1 TO 3 ON PAIN SCALE) 08/20 completed Not Available Not Available Not Available bromphenira mine-pseudo ephedrine-D M 2 mg-30 mg-10 mg/5 mL oral syrup TAKE 10 MILLILITE R BY MOUTH EVERY 4 TO 6 HOURS 10/28 completed Not Available Not Available Not Available ondansetron 4 mg disintegrat ing tablet TAKE 1 TABLET BY MOUTH EVERY 8 HOURS NEEDED FOR NAUSEA 05/11 completed Not Available Not Available Not Available fluticasone propionate 50 mcg/actuati on nasal spray,suspe nsion SPRAY 2 SPRAYS INTO EACH NOSTRIL EVERY DAY 10/28 completed Not Available Not Available Not Available spironolact one 50 mg tablet TAKE 1/2 TABLET DAILY FOR 2 WEEKS AND THEN ONE TABLET DAILY 10/28 completed Not Available Not Available Not Available amoxicillin 875 mg-potassiu m clavulanate 125 mg tablet TAKE 1 TABLET BY MOUTH EVERY 12 HOURS FOR 5 DAYS 08/18 completed Not Available Not Available Not Available metformin ER 750 mg tablet,exte nded release 24 hr TAKE 1 TABLET BY MOUTH EVERY DAY 10/28 completed Not Available Not Available Not Available levocetiriz ine 5 mg tablet TAKE 1 TABLET BY MOUTH DAILY active Not Available Not Available No t Available Senexon-S 8.6 mg-50 mg tablet TAKE 1 TABLET BY MOUTH EVERY DAY 08/20 completed Not Available Not Available Not Available azelastine 137 mcg-flutica sone 50 mcg/spray nasal spray SPRAY 2 SPRAYS INTO EACH NOSTRIL TWICE A DAY 09/01 completed Not Available Not Available Not Available Tri-Estaryl la (28) 0.18 mg(7)/0.215 mg(7)/0.25 mg(7)-0.035 mg tablet TAKE 1 TABLET BY MOUTH EVERY DAY 09/01 completed Not Available Not Available Not Available Ozempic 0.25 mg or 0.5 mg (2 mg/1.5 mL) subcutaneou s pen injector 09/01 completed Not Available Not Available Not Available Vitals Date Recorded Body height Body mass index (BMI) Body weight Heart rate Oxygen saturation Oxygen saturation in Arterial blood by Pulse oximetry Systolic And Diastolic Provider Name and Address Organization Details Last Updated DateTime 162.56 cm 33.7 kg/m2 84239.2 6 g 112 /min 98 % 98 % 110/68 mm[Hg] Raquel Pat[employer] 08:41:01 Social History Question Answer Notes LastModified by I & Combine Details LastModified Time Tobacco Smoking Status Never Smoker SocialHist oryQuestio n: 'Tobacco/A lcohol/Sup plements'; SocialHist oryRespons e: 'Never Smoker'; Not Available [facility] 11/22/2021 23:01:21 If You Are , What Was Your Level Of Alcohol Consumption Prior To ? None [email or web address] Information not available 10/29/2023 What Is Your Level Of Caffeine Consumption? None [email or web address] Information not available 10/29/2023 What Was The Date Of Your Most Recent Tobacco Screening? 01/14/2025 Information not available 01/07/2025 Has Tobacco Cessation Counseling Been Provided? No [email or web address] Information not available 10/29/2023 Sex: Unknown Functional Status Question Answer Note LastModified by [employer] ion Details LastModified Time Do you use any illicit or recreational drugs? No [email or web address] Information not available 10/29/2023 Do you or have you ever used any other forms of tobacco or nicotine? No [email or web address] Information not available 10/29/2023 What is your level of alcohol consumption? None [email or web address] Information not available 10/29/2023 Mental Status None recorded. Family History Relationship Description Onset Age of this Age Resolved Age Notes LastModified by Organization Details LastModified Time Mother Heart disease 40 [email or web address] Not available 08/2024 09:39:45 Father Disorder of thyroid gland 59 [email or web address] Not available 08/2024 09:39:45 Medical History Condition Response Allergies (Food, seasonal, environmental ) Y Other N Hyperthyroidism N Drug/Latex Allergies/Reactions N Breast Cancer N Blood Transfusion N Emergency room visit since last appointm ent. N Lung Disease N Hypothyroidism N Dermatologic Disorders N Defects or Inherited Disease N Breast Problem N Gestational Diabetes N Hematologic disorders N Anesthesia Complications N History of STI N Deep Vein Thrombosis N Polycystic ovary syndrome N Anxiety Disorder N Autoimmune disease N Vision or Eye Problems N Arthritis N Polyps N Infertility N Mental Disorder N Congenital Anomalies N History of abnormal pap N Acid Reflux (GERD) Y Cancer N Stroke N Neurologic/Epilepsy N Endometriosis N High Cholesterol N Psychiatric/Mental Health Condition N Organ Transplant N Schizophrenia N Headaches N Fibromyalgia N Dialysis N Kidney Disease N Heart Problems N Hospitalizations N Thyroid Problems N Kidney or Bladder Problems N GI Problems N Acne Y Eating Disorder N Anemia N Art (IVF or FET) N Mental Illness N Ovarian Cancer N Diabetes N Pulmonary (TB, Asthma) N Hepatitis/Liver Disease N Eczema N Abuse/Domestic Violence N Asthma N Trauma/Violence N Substance Abuse N Depression/ depression N Heart Disease N Pre-Eclampsia N Hypertension N Osteoporosis N Thrombophilias N Gynecological History Statement/Question Response Abnormal Pap N Flow Light On BCP's at Conception? N STIs/STDs N HPV Vaccine Y Duration of Flow (days) 3 Current Control Method None Age at Menarche 13 Sexually Active? Y Menses Monthly Y Date of Last Pap Smear 12/16/2021 Sexual Problems? N LMP Obstetrics History GPAL:G 1 P 0 0 0 0 Immunizations Vaccine Type Date Status Note Provider Nam e and Address Organization Details Recorded Time COVID-19, mRNA, LNP-S, PF, 100 mcg/0.5mL dose or 50 mcg/0.25mL dose 1 completed Talia rodriguez, [employer] 05/11/2022 11:43:24 COVID-19, mRNA, LNP-S, PF, 100 mcg/0.5mL dose or 50 mcg/0.25mL dose 1 completed Talia rodriguez, [place] - [employer] 05/11/2022 11:43:24 Tdap 5 completed Katie Areciboshira rodriguez, [employer] 01/14/2025 09:19:26 Influenza, split virus, trivalent, preservative 4 completed Not Available [facility] 01/14/2025 08:34:49 Past Encounters Encounter ID Performer Location Encounter Start Date Encounter Closed Date Diagnosis/Indication Diagnosis SNOMED-CT Code Diagnosis ICD10 Code Diagnosis IMO Codes Diagnosis Note [id number] Janice Lynne CNM [facility] [address] [place] [address] 12/17/2024 09:33:08 12/17/2024 10:13:30 Intrauterine 27482071 Z34.90 [id number] Janice Lynne CNM [place] [facility] [address] [place] [address] 01/14/2025 08:34:20 01/14/2025 10:16:01 Intrauterine 96287859 Z34.90 [id number] Health Concerns Section Related Observation LastModified by Organization Detai ls LastModified Time None Recorded Concern Status LastModified by Organization Details LastModified Time None Recorded Payers Encounter Date Sequence Insurance Name Policy Number Policy [place] Covered Member ID Austin Member ID Guarantor Name 01/14/2025 1 [facility] (MEDICAID HMO) Johana Higginbotham [id number] Johana Higginbotham Notes Date Note Type Note Provider Name and Address Organization Details Recorded Time 01/14/2025 text/html Generic HPI TemplateReported by PatientROS as noted in the HPI Pt is 28w2d gestation She presents for care She is taking her vitamins She reports no vaginal bleeding or LOF She denies any abd pain/contraction pattern She denies headache or visual disturbances Janice Lynne CNM [address] [place] [address], [id number], [place] [employer] 01/14/2025 09:17:35 OBGyn Episode Ob Episode Information Episode Created Date Number of Fetuses Patient Bloodtype Patient rh Status Prepregnancy Weight lbs Domestic Partner Domestic Partner Phone Father Name Project Control Manager Status 08/21/19 25 1 Ab Positive OPEN Fetus Data First Name Last Name Admitted to NICU Weight (g) Sex Living Outcome Pediatric Complications Fetus ID Race Codes Race Delivery Type [id number] Problems Problem Notes plans to deliver at [facility] risk/female Dorene Wendy /breast/epidural ? peds ? pp contraglucola done: failed passed the 3 hr tdap given Problem Name Start Date End Date Resolution Snomed Code Not e Anemia of 01/15/2025 [id number] dx at 28 wks iron studies ordered oral iron initiated iron infusions requested Family history of disorder 08/20/2024 [id number] She has some FH down syndrome on her dad's side and FOB has a brother w Kleinfeltner's syndrome; NIPT low risk/female Saul Calculation Initial Saul Date Initial Exam Date Initial Exam Provider Initial Ultrasound Date Last Menstrual Period Date Ultra Sound Weeks Gestation 08/20/2024 08/20/2024 06/20/2024 7 Eighteen To Twenty Week Saul Update Ultra Sound Date Fundal Height At Umbil Quickening Date Ultra Sound Latest Weeks Gestation Final Saul Confirmed By Final Saul Confirmed Date Final Saul Date Ultra Sound Latest Days Gestation 0 [email or web address] 08/20/2024 04/06/19 26 0 Pre-jong Flowsheet Flowsheet Date 08/20/2024 Desai Score Blood Edema Fundus Height Fundus Units Glucose Ketones Leukocytes Nitrite Labor Signs Protein Cervic Dilation Cervic Effacement Cervic Station none none Type Weight in lbs Pre/Post Dialysis Refused With clothes 166.528303786699 BP Diastolic BP Location Tested BP Systolic BP Type 84 L arm 126 sitting Fetus Heart Rate Present A Present Fetus Movement Comments dating u/s changes SAUL routi ne OB labs today NIPT w rto Flowsheet Date 09/17/2024 Desai Score Blood Edema Fundus Height Fundus Units Glucose Ketones Leukocytes Nitrite Labor Signs Protein Cervic Dilation Cervic Effacement Cervic Station none none Type Weight in lbs Pre/Post Dialysis Refused With clothes 169.285856893945 BP Diastolic BP Location Tested BP Systolic BP Type 76 118 sitting Fetus Heart Rate Present A Present Fetus Movement A No Comments NIPT today; no complaints; Flowsheet Date 10/22/2024 Desai Score Blood Edema Fundus Height Fundus Units Glucose Ketones Leukocytes Nitrite Labor Signs Protein Cervic Dilation Cervic Effacement Cervic Station none none none neg Type Weight in lbs Pre/Post Dialysis Refused With clothes 173.818332462634 BP Diastolic BP Location Tested BP Systolic BP Type 84 126 sitting Fetus Heart Rate Present A 147 Present Fetus Movement A No Comments feels good ex being a bit ti red anatomy w rto Flowsheet Date 11/19/2024 Desai Score Blood Edema Fundus Height Fundus Units Glucose Ketones Leukocytes Nitrite Labor Signs Protein Cervic Dilation Cervic Effacement Cervic Station none none Type Weight in lbs Pre/Post Dialysis Refused With clothes 181.687188067245 BP Diastolic BP Location Tested BP Systolic BP Type 80 118 sitting Fetus Heart Rate Present A 141 Present Fetus Movement Comments no anomalies on anatomy scan AGA w nl TORRES and CL Flowsheet Date 12/17/2024 Desai Score Blood Edema Fundus Height Fundus Units Glucose Ketones Leukocytes Nitrite Labor Signs Protein Cervic Dilation Cervic Effacement Cervic Station none none Type Weight in lbs Pre/Post Dialysis Refused With clothes 191.07368237199 BP Diastolic BP Location Tested BP Systolic BP Type 88 L arm 124 sitting Fetus Heart Rate Present A 144 Present Fetus Movement A Yes Comments tdap and glucola w rto offer ed/recommended influenza tody and pt thinks she got at work and will check Flowsheet Date 01/14/2025 Desai Score Blood Edema Fundus Height Fundus Units Glucose Ketones Leukocytes Nitrite Labor Signs Protein Cervic Dilation Cervic Effacement Cervic Station none 28 cm none none neg Type Weight in lbs Pre/Post Dialysis Refused With clothes 196.992613131414 BP Diastolic BP Location Tested BP Systolic BP Type 68 110 sitting Fetus Heart Rate Present A 141 Present Fetus Movement Comments glucola administered today; tdap given; growth w rto Menstrual History Last Menstrual Date Menses Monthly On Bcp Conception Prior Menses Frequency Hcg Plus Date Menarche Onset Age 0406/20/2024 Genetic Screening And Infection History Question Response Note Patient's Age Will Be 35 Yea rs Or Older At Estimated Date of Delivery false Thalassemia (Turkmen, Setswana, Mediterranean, Or Background): MCV < 80 false Neural Tube Defect (Meningom yelocele, Spina Bifida, Or Anencephaly) false Congenital Heart Defect false Down Syndrome true her father's malika e of the family Penelope (eg, Episcopal, Cajun , Setswana-Riley) false Sue Disease false Sickle Cell Disease Or Trait () false Hemophilia Or Other Blood Disorders false Muscular Dystrophy false Cystic Fibrosis false Seth's Chorea false Intellectual Disability/Autism false If Yes, Was Person Tested For Fragile X? false Other Inherited Genetic Or C hromosomal Disorder true his brother has Kleinswati 's Maternal Metabolic Disorder (eg, Type 1 Diabetes, PKU) false Patient Or Baby's Father Had A Child With Defects Not Listed Above false Recurrent Loss, Or A Stillbirth false Medications (including Suppl ements, Vitamins, Herbs, OTC Drugs), Illicit/Recreational Drugs, Alcohol true fluoxetine protoni x If Yes, Agent(s) And Strength/Dosage false Any Other Genetic History false Live With Someone With TB Or Exposed To TB false Patient Or Partner Has Histo ry Of Genital Herpes false Rash Or Viral Illness Since Last Menstrual Period false History Of STD, Gonorrhea, C hlamydia, HPV, Syphilis false Other Infection History false Prior GBS-infected child false History of HIV false History of Hepatitis false Hemoglobinopathy Or Carrier false Recent Travel History Outside of Country false Other Structural Defect false Mental Retardation/Autism false Delivery Information Delivery Date Delivery Type Labor Anesthesia Weeks Gestation Incision Type Labor Labor Length Hrs Delivered By Post Complications Tubal Sterilization Discharge Date Comments Discharge Information Feeding Method Contraceptive Method Maternal HG B and HCT Levels
--- OUTSIDE RECORDS SUMMARY | 2025-01-26 19:30 | XMS_ITS | Clinical Summary ---
[facility] Address [address] [place] [address] Care Team Providers Care Card Doffer Name Role Phone Tram Calderón MD Primary Care Provider + Allergies No known active allergies Medications No known medications Active Problems No known active problems Social History Tobacco Use Types Packs/Day Years Used Date Smoking Tobacco: Never Assessed Abuse Screen Answer Date Recorded Unsafe at Home or Work/School Not on file Feels Threatened by Someone? Not on file 11/2022 Does Anyone Keep You from Co ntacting Others or Doint Things Outside the Home? Not on file 12/25/2022 Physical Sign of Abuse Present Not on file 1 Housing Stability Answer Date Recorded Current Living Arrangements Not on file 11/2022 Potentially Unsafe Housing Conditions Not on rachael e 12/25/2022 Family and Community Support Answer Kevin e Recorded Help with Day-to-Day Activities Not on file 12/25/2022 Lonely or Isolated Not on file 12/25/2022 Employment Answer Date Recorded Do you want help finding or keeping work or a matthew b? Not on file 12/25/2022 Disabilities Answer Date Recorded Concentrating, Remembering, or Making Decisions Difficulty Not on file 12/25/2022 Doing Errands Independently Difficulty Not on fi le 12/25/2022 Education Answer Date Recorded Help with school or training? Not on file Preferred Language Not on file 12/25/2022 Comments Unknown Sex and Gender Information Value Date Recorded Sex Assigned at Not on file Legal Sex Female 11:02 AM EDT Gender Identity Not on file Sexual Orientation Not on file Last Filed Vital Signs Vital Sign Reading Time Taken Comments Blood Pressure - - Pulse 82 12/07/2015 6:52 PM EDT Temperature 37.4 C (99.4 F) 12/07/2015 6:52 PM EDT Respiratory Rate 14 12/07/2015 6:52 PM EDT Oxygen Saturation - - Inhaled Oxygen Concentration - - Weight 58.2 kg (128 lb 3.2 oz) 12/07/2015 6:52 P M EDT Height 208.3 cm (6' 10 ) 12/07/2015 6:52 PM EDT Body Mass Index 13.4 12/07/2015 6:52 PM EDT Plan of Treatment Health Maintenance Due Date Last Done Comments Annual Gynecologic Pelvic an d Breast Exam 1996 TDAP/TD VACCINES (1 - Tdap) 06/22/2015 ANNUAL PHYSICAL 02/21/2018 HEPATITIS C SCREENING 02/21/2018 INFLUENZA VACCINE 10/17/2024 Pneumococcal Vaccine 0-49 Aged Out No longer eligible based on patient's age to complete this topic Insurance PPO Care Teams Card Doffer Relationship Specialty Start Date End Date Tram Calderón MD [address] [place] [address] PCP - General Pediatrics 12/07/15
--- OUTSIDE RECORDS SUMMARY | 2025-01-26 19:30 | XMS_ITS | Clinical Summary ---
Author Organization [facility] Address [address] [place] [address] Care Team Providers Care Fabrication Inspector Name Role Phone Promise Green DO Primary Care Provider [phone] Allergies No known active allergies Medications amoxicillin (Amoxil) 500 MG capsule Take 500 mg by mouth 3 (three) times a day. 1 Active amoxicillin-clavul anate (Augmentin) 500-125 MG tablet TAKE 1 TABLET BY MOUTH TWICE A DAY FOR 7 DAYS 0 Active azithromycin (Zithromax) 250 MG tablet TAKE 2 TABLETS BY MOUTH TODAY, THEN TAKE 1 TABLET DAILY FOR 4 DAYS 1 Active clindamycin (Cleocin T) 1 % external solution APPLY TO AFFECTED AREA EVERY DAY 0 Active Dextromethorphan-g uaiFENesin ([employer]S Mucus DM Extended Release) 60-1200 MG tablet sustained-release 12 hour Take 1 tablet by mouth 1 (one) time each day. 1 Active FLUoxetine (PROzac) 20 MG capsule Take 2 capsules (40 mg) by mouth daily. 1 Active fluticasone (Flonase) 50 MCG/ACT nasal spray SPRAY 1 SPRAY IN EACH NOSTRIL DAILY 1 Active hydroquinone 4 % cream APPLY TO AREA TWICE DAILY 0 Active ibuprofen 800 MG tablet Take 800 mg by mouth 3 (three) times a day. 1 Active levocetirizine (Xyzal) 5 MG tablet 1 Active montelukast (Singulair) 10 MG tablet 1 Active Tri-Estarylla 0.18/0.215/0.25 MG-35 MCG tablet Take 1 tablet by mouth 1 (one) time each day. 1 Active omeprazole (PriLOSEC) [address] capsule Take by mouth 1 (one) time each day. 1 Active ondansetron ODT (Zofran-ODT) 4 MG disintegrating tablet 1 Active predniSONE (Deltasone) 10 MG tablet TAKE 6 TABLETS ON DAY 1 DIRECTED AND DECREASE BY 1 TAB EACH DAY FOR A TOTAL OF 6 DAYS 1 Active brompheniramine-ps eudoephedrine-DM 30-2-10 MG/5ML syrup TAKE 1 2 TEASPOON BY MOUTH EVERY 4 TO 6 HOURS (150 QTY) 1 Active tretinoin (Retin-A) 0.05 % cream APPLY TOPICALLY DIRECTED 0 Active pantoprazole (ProtoNix) 20 MG EC tablet Take 1 tablet (20 mg) by mouth daily before breakfast. Do not crush, chew, or split. Active pantoprazole (Protonix) 40 MG EC tablet Take 1 tablet by mouth daily before breakfast. Do not crush, chew, or split. Active multivitamin-warehouse examiner als-folic acid-coenzyme q10 (Preservision AREDS 2) capsule Take 1 capsule by mouth daily. Active Vit-DSS-Fe Cbn-FA ( ADVANTAGE PO) Take by mouth. 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 Assessment & Plan (01/20/2025 10:04 AM EST): Dry eyes 05/18/2024 Assessment & Plan (01/20/2025 10:04 AM EST): Anxiety 09/17/2020 Allergies 09/17/2020 Family history of premature coronary artery dise ase 09/17/2020 SVT (supraventricular tachycardia) 09/17/2020 Encounters Date Type Department Care Team Description 12/24/2024 Telephone [facility] [address] [place] [phone] French Corral, OD 12/11/2024 3:45 PM EDT Office Visit [facility] [address] [place] [phone] French Corral, OD Keratoconus of both eyes (Primary Dx); Myopia of both eyes with astigmatism 12/11/2024 Travel 12/10/2024 Travel 12/07/2024 Travel 11/05/2024 11:00 AM EDT Office Visit [facility] [address] [place] [address] French Corral, OD Keratoconus of both eyes (Primary Dx); Myopia of both eyes with astigmatism 11/05/2024 Travel 11/04/2024 Travel from Last 3 Months Immunizations Immunization Administration Dates Next Due Moderna COVID-19 Vaccine (Pants Busheler) 12+ years 06/2020,03/23/2020 Family History Medical History Relation Name Comments Cancer Father Diabetes Maternal Grandmother Heart attack Mother Relation Name Status Comments Father Alive Maternal Grandmother Mother Social History Tobacco Use Types Packs/Day Years Used Date Smoking Tobacco: Never Passive Smoke Exposure: Never Smokeless Tobacco: Never Tobacco Cessation:Counseling Given: Not Answered Comments Unknown Sex and Gender Information Value Date Recorded Sex Assigned at Not on file Legal Sex Female 12:53 PM EDT Gender Identity Not on file Sexual Orientation Not on file Last Filed Vital Signs Vital Sign Reading Time Taken Comments Blood Pressure 144/94 12/16/2020 11:12 AM EDT Pulse 88 12/16/2020 11:12 AM EDT Temperature - - Respiratory Rate - - Oxygen Saturation 98% 09/21/2020 9:34 AM EDT Inhaled Oxygen Concentration - - Weight 72.6 kg (160 lb) 12/16/2020 11:12 AM EDT Height 160 cm (5' 3 ) 12/16/2020 11:12 AM EDT Body Mass Index 28.34 12/16/2020 11:12 AM EDT Plan of Treatment Upcoming Encounters Date Type Department Care Team (Late st Contact Info) Description 02/03/2025 11:00 AM EST Office Visit [facility] [address] [place] [phone] Roma Vaz [address] [place] [address] 04/23/2025 9:30 AM EST Office Visit [facility] [address] [place] [address] Rashid Vale MD [address] [place] [address] Health Maintenance Due Date Last Done Comments [facility]-Depression Screening 1996 [facility]-HIV Screening 1996 [facility]-Hepatitis C Screening 1996 [facility]-/Child/Adol SDOH Screenings 1996 [facility]-Varicella Vaccines (1 of 2 - 13+ 2-dose series) 2009 [facility]- SDOH Screenings 2014 [facility]-Adult SDOH Screenings 2014 [facility]-Hepatitis B Vaccines (1 of 3 - 19+ 3-dose series) 06/22/2015 [facility]-Zoster Vaccines (1 of 2) 06/22/2015 [facility]-Pap Smear 2017 GZL-[id number]-27 Vaccine (3 - Moderna risk series) 05/20/2020 04/22/2020, 03/23/2020 HPV Vaccines (1 - 3-dose SCDM series) 06/22/2023 [facility]-Influenza Vaccine (#1) 2024 12/28/2023 [facility]-DTaP,Tdap,and Td Vaccines (2 - Td or Tdap) 01/14/2035 01/14/2025 [facility]-HIB Vaccines Aged Out No longer e ligible based on patient's age to complete this topic [facility]-Hepatitis A Vaccines Aged Out No longer eligible based on patient's age to complete this topic [facility]-IPV Vaccines Aged Out No longer e ligible based on patient's age to complete this topic [facility]-Pneumococcal Vaccine: Pediatrics (0 to 5 Years) and At-Risk Patients (6 to 49 Years) Aged Out No longer eligible b ased on patient's age to complete this topic [facility]-Rotavirus Vaccines Aged Out No lo nger eligible based on patient's age to complete this topic Insurance [employer] MEDICAID Care Teams Fabrication Inspector Relationship Specialty Start Date End Date Promise Green DO [address] [place] [place] [address] PCP - General 09/21/20
--- OUTSIDE RECORDS SUMMARY | 2025-01-26 19:30 | XMS_ITS | Encounter Summary ---
Author Organization [facility] Address [address] [place] [address] Care Team Providers Care Terminal Operations Supervisor Name Role Phone Promise Green Primary Care Provider [phone] Encounter Details Date Type Department Care Team (Late Contact Info) Description 12/24/2024 Telephone [facility] [address] [place] [address] French Corral OD [address] [phone] Social History Tobacco Use Types Packs/Day Years Used Date Smoking Tobacco: Never Passive Smoke Exposure: Never Smokeless Tobacco: Never Comments Unknown Sex and Gender Information Value Date Recorded Sex Assigned at Not on file Legal Sex Female 12:53 PM EDT Gender Identity Not on file Sexual Orientation Not on file documented as of this encounter Plan of Treatment Upcoming Encounters Date Type Department Care Team (Late Contact Info) Description 02/03/2025 11:00 AM EST Office Visit [facility] [address] [place] [address] Roma Vaz [address] [place] [address] 04/23/2025 9:30 AM EST Office Visit [facility] [address] [place] [address] Rashid Vale MD [address] [facility] [address] [place] [phone] documented as of this encounter Visit Diagnoses Not on filedocumented in this encounter Additional Health Concerns Assessment Noted Time A fall risk assessment has been complete d for the patient 09/18/2024 9:30 AM EDT A Body Mass Index follow-up plan has been documented for the patient 05/20/2024 2:22 PM EST documented as of this encounter Care Teams Terminal Operations Supervisor Relationship Specialty Start Date End Date Promise Green DO [address] [place] [address] PCP - General 09/21/20 documented as of this encounter
--- OUTSIDE RECORDS SUMMARY | 2025-01-26 19:30 | XMS_ITS | Continuity of Care Document ---
Author Organization [facility] Address [address] [place] [address] Assessment No assessment recorded. Plan of Treatment Reminders Order Date Submit Date Provider Last Modified By Organization Details Last Modified Time Details Appointments 2024 09:30A Prateek Kern III, MD Not available Not available Not available ULTRASOUN D 60 2024 09:00A M SWCW_Ultr asound 2 Not available Not available Not available 2024 09:45A Prateek Kern III, MD Not available Not available Not available Lab urinalysi s, dipstick 2024 025 [facility], [address] [place], [address], 12/17/2024 09:51:39 Referral None recorded. Procedures None recorded. Surgeries None recorded. Imaging None recorded. Medication Orders None recorded. Patient TargetsNo targets recorded. Patient InstructionsNo instructions recorded. Reason for Referral None Reported. Results Created [...] rebecca consu ltati on, pleas e call [phone]. ===== ===== ===== ===== ===== ===== ===== ===== ===== ===== ===== ===== ===== === Not Available [facility] ([facility]) [address] , [place], [address], 08/24/2024 20:11:18 08/21/19 25 08/24/2024 TOXAS SURE FLEX 19, UR pdf . Not Available [facility] ([facility]) [address] [place], [address], 08/24/2024 20:11:18 08/21/19 25 08/24/2024 TOXAS SURE FLEX 19, UR creatinine 60 mg/dL >=20 REFER ENCE RANGE : Ref Range >=20 Not Available [facility] ([facility]) [address] [place], [address], 08/24/2024 20:11:18 08/21/19 25 08/24/2024 TOXAS SURE FLEX 19, UR amphetamines ia Negati ve NG/mL cutoff :300 Not Available [facility] ([facility]) [address] [place], [address], 08/24/2024 20:11:18 08/21/19 25 08/24/2024 TOXAS SURE FLEX 19, UR benzodiazepi evie Negati ve Not Available [facility] ([facility]) [address] [place], [address], 08/24/2024 20:11:18 08/21/19 25 08/24/2024 TOXAS SURE FLEX 19, UR diazepam Not Detect ed NG/mg _crea t Not Available [facility] ([facility]) [address] [place], [address], 08/24/2024 20:11:18 08/21/19 25 08/24/2024 TOXAS SURE FLEX 19, UR desmethyldia zepam Not Detect ed NG/mg _crea t Not Available [facility] ([facility]) [address] [place], [address], 08/24/2024 20:11:18 08/21/19 25 08/24/2024 TOXAS SURE FLEX 19, UR oxazepam Not Detect ed NG/mg _crea t Not Available [facility] ([facility]) [address] [place], [address], 08/24/2024 20:11:18 08/21/19 25 08/24/2024 TOXAS SURE [...] ervin Oxaze ervin: None Not Available [facility] ([facility]) [address] [place], [address], 08/24/2024 20:11:18 08/21/19 25 08/24/2024 TOXAS SURE FLEX 19, UR alprazolam Not Detect ed NG/mg _crea t Not Available [facility] ([facility]) [address] [place], [address], 08/24/2024 20:11:18 08/21/19 25 08/24/2024 TOXAS SURE FLEX 19, UR alpha-hydrox yalprazolam Not Detect ed NG/mg _crea t Not Available [facility] ([facility]) [address] [place], [address], 08/24/2024 20:11:18 08/21/19 25 08/24/2024 TOXAS SURE FLEX 19, UR desalkylflur azepam Not Detect ed NG/mg _crea t Not Available [facility] ([facility]) [address] [place], [address], 08/24/2024 20:11:18 08/21/19 25 08/24/2024 TOXAS SURE FLEX 19, UR lorazepam Not Detect ed NG/mg _crea t Not Available [facility] ([facility]) [address] [place], [address], 08/24/2024 20:11:18 08/21/19 25 08/24/2024 TOXAS SURE FLEX 19, UR alpha-hydrox ytriazolam Not Detect ed NG/mg _crea t Not Available [facility] ([facility]) [address] [place], [address], 08/24/2024 20:11:18 08/21/19 25 08/24/2024 TOXAS SURE FLEX 19, UR clonazepam Not Detect ed NG/mg _crea t Not Available [facility] ([facility]) [address] [place], [address], 08/24/2024 20:11:18 08/21/19 25 08/24/2024 TOXAS SURE FLEX 19, UR 7-aminoclona zepam Not Detect ed NG/mg _crea t Not Available [facility] ([facility]) [address] [place], [address], 08/24/2024 20:11:18 08/21/19 25 08/24/2024 TOXAS SURE FLEX 19, UR midazolam Not Detect ed NG/mg _crea t Not Available [facility] ([facility]) [address] [place], [address], 08/24/2024 20:11:18 08/21/19 25 08/24/2024 TOXAS SURE FLEX 19, UR alpha-hydrox ymidazolam Not Detect ed NG/mg _crea t Not Available [facility] ([facility]) [address] [place], [address], 08/24/2024 20:11:18 08/21/19 25 08/24/2024 TOXAS SURE FLEX 19, UR flunitrazepa m Not Detect ed NG/mg _crea t Not Available [facility] ([facility]) [address] [place], [address], 08/24/2024 20:11:18 08/21/19 25 08/24/2024 TOXAS SURE FLEX 19, UR desmethylflu nitrazepam Not Detect ed NG/mg _crea t Not Available [facility] ([facility]) [address] [place], [address], 08/24/2024 20:11:18 08/21/19 25 08/24/2024 TOXAS SURE FLEX 19, UR cocaine metabolite ia Negati ve NG/mL cutoff :150 Not Available [facility] ([facility]) [address] [place], [address], 08/24/2024 20:11:18 08/21/19 25 08/24/2024 TOXAS SURE FLEX 19, UR ethanol biomarkers ia Negati ve NG/mL cutoff :500 Not Available [facility] ([facility]) [address] [place], [address], 08/24/2024 20:11:18 08/21/19 25 08/24/2024 TOXAS SURE FLEX 19, UR cannabinoids ia Negati ve NG/mL cutoff :20 Not Available [facility] ([facility]) [address] [place], [address], 08/24/2024 20:11:18 08/21/19 25 08/24/2024 TOXAS SURE FLEX 19, UR 6-acetylmorp viola ia Negati ve NG/mL cutoff :10 Not Available [facility] ([facility]) [address] [place], [address], 08/24/2024 20:11:18 08/21/19 25 08/24/2024 TOXAS SURE FLEX 19, UR opiate class ia Negati ve NG/mL cutoff :100 Not Available [facility] ([facility]) [address] [place], [address], 08/24/2024 20:11:18 08/21/19 25 08/24/2024 TOXAS SURE FLEX 19, UR oxycodone class ia Negati ve NG/mL cutoff :100 Not Available [facility] ([facility]) [address] [place] [address], [address], 08/24/2024 20:11:18 08/21/19 25 08/24/2024 TOXAS SURE FLEX 19, UR methadone ia Negati ve NG/mL cutoff :100 Not Available [facility] ([facility]) [address] [place], [address], 08/24/2024 20:11:18 08/21/19 25 08/24/2024 TOXAS SURE FLEX 19, UR methadone mtb ia Negati ve NG/mL cutoff :100 Not Available [facility] ([facility]) [address] [place] [address], [address], 08/24/2024 20:11:18 08/21/19 25 08/24/2024 TOXAS SURE FLEX 19, UR buprenorphin e ia Negati ve NG/mL cutoff :5.0 Not Available [facility] ([facility]) [address] [place] [address], [address], 08/24/2024 20:11:18 08/21/19 25 08/24/2024 TOXAS SURE FLEX 19, UR fentanyl ia Negati ve NG/mL cutoff :2.0 Not Available [facility] ([facility]) [address] [place], [address], 08/24/2024 20:11:18 08/21/19 25 08/24/2024 TOXAS SURE FLEX 19, UR tapentadol ia Negati ve NG/mL cutoff :200 Not Available [facility] ([facility]) [address] [place] [address], [address], 08/24/2024 20:11:18 08/21/19 25 08/24/2024 TOXAS SURE FLEX 19, UR propoxyphene ia Negati ve NG/mL cutoff :300 Not Available [facility] ([facility]) [address] [place], [address], 08/24/2024 20:11:18 08/21/19 25 08/24/2024 TOXAS SURE FLEX 19, UR tramadol ia Negati ve NG/mL cutoff :200 Not Available [facility] ([facility]) [address] [place], [address], 08/24/2024 20:11:18 08/21/19 25 08/24/2024 TOXAS SURE FLEX 19, UR methylphenid ate ia Negati ve NG/mL cutoff :100 Not Available [facility] ([facility]) [address] [place], [address], 08/24/2024 20:11:18 08/21/19 25 08/24/2024 TOXAS SURE FLEX 19, UR barbiturates ia Negati ve NG/mL cutoff :200 Not Available [facility] ([facility]) [address] [place], [address], 08/24/2024 20:11:18 08/21/19 25 08/24/2024 TOXAS SURE FLEX 19, UR phencyclidin e ia Negati ve NG/mL cutoff :25 Not Available [facility] ([facility]) [address] [place], [address], 08/24/2024 20:11:18 08/21/19 25 08/24/2024 TOXAS SURE FLEX 19, UR gabapentin ia Negati ve ug/mL cutoff :1.0 Not Available [facility] ([facility]) [address] [place], [address], 08/24/2024 20:11:18 08/21/19 25 08/24/2024 TOXAS SURE FLEX 19, UR anticonvulsa nts Negati ve Not Available [facility] ([facility]) [address] [place], [address], 08/24/2024 20:11:18 08/21/19 25 08/24/2024 TOXAS SURE FLEX 19, UR pregabalin Not Detect ed Not Available [facility] ([facility]) [address] [facility], [place], [address], 08/24/2024 20:11:18 08/21/19 25 08/24/2024 TOXAS SURE FLEX 19, UR carisoprodol ia Negati ve NG/mL cutoff :100 Not Available [facility] ([facility]) [address] [facility], [place], [address], 08/24/2024 20:11:18 08/21/19 25 08/21/2024 PREGN SARAH, INITI AL SCREE N HBsAg screen Negati ve negati ve Not Available [facility] ([facility]) [address] [facility], [place], [address], 08/24/2024 20:11:19 08/21/19 25 08/21/2024 PREGN SARAH, INITI AL SCREE N HCV Ab Non Reacti ve non reacti ve Not Available [facility] ([facility]) [address] [facility], [place], [address], 08/24/2024 20:11:19 08/21/19 25 08/21/2024 PREGN SARAH, INITI AL SCREE N interpretati on: Commen t Not infec isabell with HCV unles s early or acute infec tion is suspe cted (whic h may be delay ed in an immun ocomp romis ed indiv idual ), or other evide nce exist s to indic ate HCV infec tion. Not Available [facility] ([facility]) [address] [facility], [place], [address], 08/24/2024 20:11:19 08/21/19 25 08/21/2024 PREGN SARAH, INITI AL SCREE N RPR Non Reacti ve non reacti ve Not Available [facility] ([facility]) [address] [facility], [place], [address], 08/24/2024 20:11:19 08/21/19 25 08/21/2024 PREGN SARAH, INITI AL SCREE N rubella antibodies, IgG 8.30 index immune >0.99 Non-i mmune <0.90 Equiv ocal 0.90 - 0.99 Immun e >0.99 Not Available [facility] ([facility]) [address] [facility], [place], [address], 08/24/2024 20:11:19 08/21/19 25 08/21/2024 PREGN SARAH, INITI AL SCREE N ABO grouping AB Not Available [facility] ([facility]) [address] [facility], [place], [address], 08/24/2024 20:11:19 08/21/19 25 08/21/2024 PREGN SARAH, INITI AL SCREE N Rh factor Positi ve Pleas e note: Prior recor ds for this patie nt's ABO / Rh type are not avail able for addit ional verif icati on. Not Available [facility] ([facility]) [address] [facility], [place], [address], 08/24/2024 20:11:19 08/21/19 25 08/21/2024 PREGN SARAH, INITI AL SCREE N antibody screen Negati ve negati ve Not Available [facility] ([facility]) [address] [facility], [place], [address], 08/24/2024 20:11:19 08/21/19 25 08/21/2024 PREGN SARAH, INITI AL SCREE N HIV Ab/P24 Ag screen Non Reacti ve non reacti ve HIV-1 /HIV- 2 antib odies and HIV-1 p24 antig en were NOT detec isabell. There is no labor atory evide nce of HIV infec tion. HIV Negat kurt Not Available [facility] ([facility]) [address] [facility], [place], [address], 08/24/2024 20:11:19 08/21/19 25 08/21/2024 PREGN SARAH, INITI AL SCREE N WBC 9.9 x10e3 /uL 3.4-10 .8 normal Not Available [facility] ([facility]) [address] [place], [address], 08/24/2024 20:11:19 08/21/19 25 08/21/2024 PREGN SARAH, INITI AL SCREE N RBC 4.07 x10e6 /uL 3.77-5 .28 normal Not Available [facility] ([facility]) [address] [place], [address], 08/24/2024 20:11:19 08/21/19 25 08/21/2024 PREGN SARAH, INITI AL SCREE N hemoglobin 12.1 g/dL 11.1-1 5.9 normal Not Available [facility] ([facility]) [address] [place], [address], 08/24/2024 20:11:19 08/21/19 25 08/21/2024 PREGN SARAH, INITI AL SCREE N hematocrit 38.2 % 34.0-4 6.6 normal Not Available [facility] ([facility]) [address] [place], [address], 08/24/2024 20:11:19 08/21/19 25 08/21/2024 PREGN SARAH, INITI AL SCREE N MCV 94 fL 79-97 normal Not Available [facility] ([facility]) [address] [place], [address], 08/24/2024 20:11:19 08/21/19 25 08/21/2024 PREGN SARAH, INITI AL SCREE N MCH 29.7 pg 26.6-3 3.0 normal Not Available [facility] ([facility]) [address] [place], [address], 08/24/2024 20:11:19 08/21/19 25 08/21/2024 PREGN SARAH, INITI AL SCREE N MCHC 31.7 g/dL 31.5-3 5.7 normal Not Available [facility] ([facility]) [address] [facility], [place], [address], 08/24/2024 20:11:19 08/21/19 25 08/21/2024 PREGN SARAH, INITI AL SCREE N RDW 12.9 % 11.7-1 5.4 Not Available [facility] ([facility]) [address] [facility], [place], [address], 08/24/2024 20:11:19 08/21/19 25 08/21/2024 PREGN SARAH, INITI AL SCREE N platelets 335 x10e3 /uL 150-45 0 normal Not Available [facility] ([facility]) [address] [facility], [place], [address], 08/24/2024 20:11:19 08/21/19 25 08/21/2024 PREGN SARAH, INITI AL SCREE N neutrophils 68 % not estab. normal Not Available [facility] ([facility]) [address] [facility], [place], [address], 08/24/2024 20:11:19 08/21/19 25 08/21/2024 PREGN SARAH, INITI AL SCREE N lymphs 22 % not estab. normal Not Available [facility] ([facility]) [address] [facility], [place], [address], 08/24/2024 20:11:19 08/21/19 25 08/21/2024 PREGN SARAH, INITI AL SCREE N monocytes 7 % not estab. normal Not Available [facility] ([facility]) [address] [facility], [place], [address], 08/24/2024 20:11:19 08/21/19 25 08/21/2024 PREGN SARAH, INITI AL SCREE N eos 2 % not estab. normal Not Available [facility] ([facility]) [address] [place], [address], 08/24/2024 20:11:19 08/21/19 25 08/21/2024 PREGN SARAH, INITI AL SCREE N basos 1 % not estab. normal Not Available [facility] ([facility]) [address] [place], [address], 08/24/2024 20:11:19 08/21/19 25 08/21/2024 PREGN SARAH, INITI AL SCREE N immature cells TUGBOAT MATE Not Available [facility] ([facility]) [address] [place], [address], 08/24/2024 20:11:19 08/21/19 25 08/21/2024 PREGN SARAH, INITI AL SCREE N neutrophils (absolute) 6.8 x10e3 /uL 1.4-7. 0 normal Not Available [facility] ([facility]) [address] [place], [address], 08/24/2024 20:11:19 08/21/19 25 08/21/2024 PREGN SARAH, INITI AL SCREE N lymphs (absolute) 2.2 x10e3 /uL 0.7-3. 1 normal Not Available [facility] ([facility]) [address] [place], [address], 08/24/2024 20:11:19 08/21/19 25 08/21/2024 PREGN SARAH, INITI AL SCREE N monocytes(ab solute) 0.7 x10e3 /uL 0.1-0. 9 normal Not Available [facility] ([facility]) [address] [place], [address], 08/24/2024 20:11:19 08/21/19 25 08/21/2024 PREGN SARAH, INITI AL SCREE N eos (absolute) 0.2 x10e3 /uL 0.0-0. 4 normal Not Available [facility] ([facility]) [address] [place], [address], 08/24/2024 20:11:19 08/21/19 25 08/21/2024 PREGN SARAH, INITI AL SCREE N baso (absolute) 0.1 x10e3 /uL 0.0-0. 2 normal Not Available [facility] ([facility]) [address] [facility], [place], [address], 08/24/2024 20:11:19 08/21/19 25 08/21/2024 PREGN SARAH, INITI AL SCREE N immature granulocytes 0 % not estab. Not Available [facility] ([facility]) [address] [facility], [place], [address], 08/24/2024 20:11:19 08/21/19 25 08/21/2024 PREGN SARAH, INITI AL SCREE N immature grans (abs) 0.0 x10e3 /uL 0.0-0. 1 Not Available [facility] ([facility]) [address] [facility], [place], [address], 08/24/2024 20:11:19 08/21/19 25 08/21/2024 PREGN SARAH, INITI AL SCREE N NRBC TUGBOAT MATE Not Available [facility] ([facility]) [address] [facility], [place], [address], 08/24/2024 20:11:19 08/21/19 25 08/21/2024 PREGN SARAH, INITI AL SCREE N hematology comments: TUGBOAT MATE Not Available [facility] ([facility]) [address] [facility], [place], [address], 08/24/2024 20:11:19 08/21/19 25 08/21/2024 PREGN SARAH, INITI AL SCREE N specific gravity 1.011 1.005- 1.030 normal Not Available [facility] ([facility]) [address] [facility], [place], [address], 08/24/2024 20:11:19 08/21/19 25 08/21/2024 PREGN SARAH, INITI AL SCREE N pH 6.5 5.0-7. 5 normal Not Available [facility] ([facility]) [address] [place], [address], 08/24/2024 20:11:19 08/21/19 25 08/21/2024 PREGN SARAH, INITI AL SCREE N urine-color Yellow yellow Not Available [facility] ([facility]) [address] [place], [address], 08/24/2024 20:11:19 08/21/19 25 08/21/2024 PREGN SARAH, INITI AL SCREE N appearance Clear clear Not Available [facility] ([facility]) [address] [place], [address], 08/24/2024 20:11:19 08/21/19 25 08/21/2024 PREGN SARAH, INITI AL SCREE N WBC esterase 1+ negati ve abnormal Not Available [facility] ([facility]) [address] [place], [address], 08/24/2024 20:11:19 08/21/19 25 08/21/2024 PREGN SARAH, INITI AL SCREE N protein Negati ve negati ve/tra ce Not Available [facility] ([facility]) [address] [place], [address], 08/24/2024 20:11:19 08/21/19 25 08/21/2024 PREGN SARAH, INITI AL SCREE N glucose Negati ve negati ve Not Available [facility] ([facility]) [address] [place], [address], 08/24/2024 20:11:19 08/21/19 25 08/21/2024 PREGN SARAH, INITI AL SCREE N ketones Negati ve negati ve Not Available [facility] ([facility]) [address] [place], [address], 08/24/2024 20:11:19 08/21/19 25 08/21/2024 PREGN SARAH, INITI AL SCREE N occult blood Negati ve negati ve Not Available [facility] ([facility]) [address] [facility], [place], [address], 08/24/2024 20:11:19 08/21/19 25 08/21/2024 PREGN SARAH, INITI AL SCREE N bilirubin Negati ve negati ve Not Available [facility] ([facility]) [address] [place], [address], 08/24/2024 20:11:19 08/21/19 25 08/21/2024 PREGN SARAH, INITI AL SCREE N urobilinogen ,semi-qn 0.2 mg/dL 0.2-1. 0 normal Not Available [facility] ([facility]) [address] [place], [address], 08/24/2024 20:11:19 08/21/19 25 08/21/2024 PREGN SARAH, INITI AL SCREE N nitrite, urine Negati ve negati ve Not Available [facility] ([facility]) [address] [place], [address], 08/24/2024 20:11:19 08/21/19 25 08/21/2024 PREGN SARAH, INITI AL SCREE N microscopic examination See below: Micro scopi c was indic ated and was perfo rmed. Not Available [facility] ([facility]) [address] [place], [address], 08/24/2024 20:11:19 08/21/19 25 08/21/2024 PREGN SARAH, INITI AL SCREE N WBC 0-5 /hpf 0 - 5 Not Available [facility] ([facility]) [address] [place], [address], 08/24/2024 20:11:19 06/04/20 25 08/21/2024 PREGN SARAH, INITI AL SCREE N RBC 0-2 /hpf 0 - 2 Not Available [facility] ([facility]) [address] [facility], [place], [address], 08/24/2024 20:11:19 08/21/19 25 08/21/2024 PREGN SARAH, INITI AL SCREE N epithelial cells (non renal) 0-10 /hpf 0 - 10 Not Available [facility] ([facility]) [address] [facility], [place], [address], 08/24/2024 20:11:19 08/21/19 25 08/21/2024 PREGN SARAH, INITI AL SCREE N epithelial cells (renal) TUGBOAT MATE Not Available [facility] ([facility]) [address] [facility], [place], [address], 08/24/2024 20:11:19 08/21/19 25 08/21/2024 PREGN SARAH, INITI AL SCREE N casts None seen /lpf none seen Not Available [facility] ([facility]) [address] [place], [address], 08/24/2024 20:11:19 08/21/19 25 08/21/2024 PREGN SARAH, INITI AL SCREE N cast type TUGBOAT MATE Not Available [facility] ([facility]) [address] [facility], [place], [address], 08/24/2024 20:11:19 08/21/19 25 08/21/2024 PREGN SARAH, INITI AL SCREE N crystals TUGBOAT MATE Not Available [facility] ([facility]) [address] [place], [address], 08/24/2024 20:11:19 08/21/19 25 08/21/2024 PREGN SARAH, INITI AL SCREE N crystal type TUGBOAT MATE Not Available [facility] ([facility]) [address] [place], [address], 08/24/2024 20:11:19 08/21/19 25 08/21/2024 PREGN SARAH, INITI AL SCREE N mucus threads TUGBOAT MATE Not Available [facility] ([facility]) [address] [facility], [place], [address], 08/24/2024 20:11:19 08/21/19 25 08/21/2024 PREGN SARAH, INITI AL SCREE N bacteria Few none seen/f ew Not Available [facility] ([facility]) [address] [facility], [place], [address], 08/24/2024 20:11:19 08/21/19 25 08/21/2024 PREGN SARAH, INITI AL SCREE N yeast TUGBOAT MATE Not Available [facility] ([facility]) [address] [facility], [place], [address], 08/24/2024 20:11:19 08/21/19 25 08/21/2024 PREGN SARAH, INITI AL SCREE N trichomonas TUGBOAT MATE Not Available [facility] ([facility]) [address] [facility], [place], [address], 08/24/2024 20:11:19 08/21/19 25 08/21/2024 PREGN SARAH, INITI AL SCREE N comment TUGBOAT MATE Not Available [facility] ([facility]) [address] [place], [address], 08/24/2024 20:11:19 08/21/19 25 08/21/2024 PREGN SARAH, INITI AL SCREE N microscopic examination TUGBOAT MATE Not Available [facility] ([facility]) [address] [place], [address], 08/24/2024 20:11:19 08/21/19 25 08/22/2024 PREGN SARAH, INITI AL SCREE N chlamydia trachomatis, SHARDA Negati ve negati ve Not Available [facility] ([facility]) [address] [place], [address], 08/24/2024 20:11:19 08/21/19 25 08/22/2024 PREGN SARAH, INITI AL SCREE N neisseria gonorrhoeae, SHARDA Negati ve negati ve Not Available [facility] ([facility]) [address] [facility], [place], [address], 08/24/2024 20:11:19 08/21/19 25 08/22/2024 PREGN SARAH, INITI AL SCREE N urine culture,pren atal, w/gbs Final report Not Available [facility] ([facility]) [address] [facility], [place], [address], 08/24/2024 20:11:19 08/21/19 25 08/22/2024 PREGN SARAH, INITI AL SCREE N result 1 No growth Not Available [facility] ([facility]) [address] [facility], [place], [address], 08/24/2024 20:11:19 08/21/19 25 08/20/2024 urina lysis , dipst ick Leukocytes Negati ve Not Available [address], [address], 08/20/2024 15:46:47 08/21/19 25 08/20/2024 urina lysis , dipst ick Nitrite negati ve Not Available [address], [address], 08/20/2024 15:46:47 08/21/19 25 08/20/2024 urina lysis , dipst ick Urobilinogen .2 Not Available [address], [address], 08/20/2024 15:46:47 08/21/19 25 08/20/2024 urina lysis , dipst ick Protein Negati ve Not Available [address], [address], 08/20/2024 15:46:47 08/21/19 25 08/20/2024 urina lysis , dipst ick pH 6.0 Not Available [address], [address], 08/20/2024 15:46:47 08/21/19 25 08/20/2024 urina lysis , dipst ick Blood Negati ve Not Available [address], [address], 08/20/2024 15:46:47 08/21/19 25 08/20/2024 urina lysis , dipst ick Specific [place] 1.010 Not Available [address], [address], 08/20/2024 15:46:47 08/21/19 25 08/20/2024 urina lysis , dipst ick Ketone Negati ve Not Available [address], [address], 08/20/2024 15:46:47 08/21/19 25 08/20/2024 urina lysis , dipst ick Bilirubin Negati ve Not Available [address], [address], 08/20/2024 15:46:47 08/21/19 25 08/20/2024 urina lysis , dipst ick Glucose Negati ve Not Available [address], [address], 08/20/2024 15:46:47 08/21/19 25 08/20/2024 urina lysis , dipst ick Appearance Clear Not Available [facility] [address] [place], [address], 08/20/2024 15:46:47 08/21/19 25 08/20/2024 urina lysis , dipst ick Color Yellow Not Available [facility] [address] [place], [address], 08/20/2024 15:46:47 09/18/19 25 09/24/2024 MATER NIT21 PLUS CORE+ SCA gestation Single ton Not Available [facility] ([facility]) [address] [place], [address], 10/03/2024 13:07:36 09/18/19 25 09/24/2024 MATER NIT21 PLUS CORE+ SCA fraction 13% Not Available [facility] ([facility]) [address] [place], [address], 10/03/2024 13:07:36 09/18/19 25 09/24/2024 MATER NIT21 PLUS CORE+ SCA gestational age > or = 9W: Yes Not Available [facility] ([facility]) [address] [place], [address], 10/03/2024 13:07:36 09/18/19 25 09/24/2024 MATER NIT21 PLUS CORE+ SCA test result Negati ve Not Available [facility] ([facility]) [address] [place], [address], 10/03/2024 13:07:36 09/18/19 25 09/24/2024 MATER NIT21 PLUS CORE+ SCA laboratory cureman comments Commen t This speci men showe d an expec isabell repre senta tion of chrom osome 21, 18 and 13 mater ial. Clini rebecca corre latio n is delores arenas. Not Available [facility] ([facility]) [address] [place], [address], 10/03/2024 13:07:36 09/18/19 25 09/24/2024 MATER NIT21 PLUS CORE+ SCA approved by Chelsie roldan MD, PhD, [facility], [facility] [place] es Not Available [facility] ([facility]) [address] [facility], [place], [address], 10/03/2024 13:07:36 09/18/19 25 09/24/2024 MATER NIT21 PLUS CORE+ SCA trisomy 21 (down syndrome) Negati ve Not Available [facility] ([facility]) [address] [facility], [place], [address], 10/03/2024 13:07:36 09/18/19 25 09/24/2024 MATER NIT21 PLUS CORE+ SCA trisomy 18 (saunders syndrome) Negati ve Not Available [facility] ([facility]) [address] [facility], [place], [address], 10/03/2024 13:07:36 09/18/19 25 09/24/2024 MATER NIT21 PLUS CORE+ SCA trisomy 13 (patau syndrome) Negati ve Not Available [facility] (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) [address] [place], [address], 10/03/2024 13:07:36 09/18/19 25 09/24/2024 MATER NIT21 PLUS CORE+ SCA xxy (klinefelter syndrome) Not Detect ed Not Available [facility] ([facility]) [address] [facility], [place], [address], 10/03/2024 13:07:36 09/18/19 25 09/24/2024 MATER NIT21 PLUS CORE+ SCA xxx (triple X syndrome) Not Detect ed Not Available [facility] ([facility]) [address] [place], [address], 10/03/2024 13:07:36 09/18/19 25 09/24/2024 MATER NIT21 PLUS CORE+ SCA negative predictive value Note The Negat kurt Predi ctive Value (NPV) for triso my 21, 18, and 13 is great er than 99%. The NPV for SCA and ESS canno t be calcu lated as SCA and ESS are only repor isabell when an abnor malit y is detec isabell. Not Available [facility] ([facility]) [address] [facility], [place], [address], 10/03/2024 13:07:36 09/18/19 25 09/24/2024 MATER NIT21 PLUS CORE+ SCA positive predictive value N/A Not Available [facility] ([facility]) [address] [place], [address], 10/03/2024 13:07:36 09/18/19 25 09/24/2024 MATER NIT21 [...] yet been valid ated. Not Available [facility] ([facility]) [address] [facility], [place], [address], 10/03/2024 13:07:36 09/18/19 25 09/24/2024 MATER NIT21 PLUS CORE+ SCA test method Commen t Circu latin g cell- free DNA was purif ied from the plasm a compo nent of mater nal blood . The extra cted DNA was then conve rted into a [employer] DNA ashley ry for aneup loidy maik [...] s 16 and 22. Not Available [facility] ([facility]) [address] [facility], [place], [address], 10/03/2024 13:07:36 09/18/19 25 09/24/2024 MATER NIT21 PLUS CORE+ SCA performance Commen t The perfo rmanc e emma cteri stics of the Mater niT(R ) 21 PLUS labor atory -deve loped test (LDT) have been deter mined in a clini rebecca valid ation study with pregn ant women at incre ased risk for chrom osoma l aneup loidy .[1-4 ] Not Available [facility] ([facility]) [address] [facility], [place], [address], 10/03/2024 13:07:36 09/18/19 25 09/24/2024 MATER NIT21 PLUS CORE+ SCA performance characterist ics Note ----- ----- ----- ----- ----- ----- ----- ----- ----- ----- ----- ---- ! Sex ! Accur acy: 99.4% ! !---- ----- ----- ----- ----- ----- ----- ----- ----- ----- ----- ---! ! Regio n (sejal bedolla syndr ome) ! Est. Sens# ! Est. Spec ! !---- ----- ----- ----- ----- ----- ----- ----- ----- ----- ----- ---! ! Jadon my 21 (Yudith Syndr ome) ! 99.1% ! 99.9% ! !---- ----- ----- ----- ----- ----- ----- ----- ----- ----- ----- ---! ! Mitcho my 18 (Saul guajardo Syndr ome) ! >99.9 % ! 99.6% ! !---- ----- ----- ----- ----- ----- ----- ----- ----- ----- ----- ---! ! Mitcho my 13 (Pata u Syndr ome) ! 91.7% ! 99.7% ! !---- ----- ----- ----- ----- ----- ----- ----- ----- ----- ----- ---! ! Sex Chrom osome Aneup daniel galindo## ! 96.2% ! 99.7% ! !---- ----- ----- ----- ----- ----- ----- ----- ----- ----- ----- ---! * As repor isabell in ISCA datab ase nstd3 7 [http s://w ww.nc bi.nl .[facility] .gov/ dbvar /stud ies/n std37 / ] [...] eton gesta tion only. Not Available [facility] ([facility]) [address] [facility], [place], [address], 10/03/2024 13:07:36 09/18/19 25 09/24/2024 MATER NIT21 PLUS CORE+ SCA limitations of the test Commen t While the resul ts of these tests are highl y relia ble, disco rdant resul ts, inclu ding inacc urate sex predi ction , may occur due to place ntal, mater nal, or mosai cism or neopl asm; vanis anthnoy twin; prior mater nal organ trans plant [...] discu ssed with a quali fied healt hcare provi yeni. Pregn sarah manag ement decis ions, inclu ding termi natio n of the pregn sarah, jo annul d not be based on the resul ts of these tests alone . The healt hcare provi yeni is respo nsibl e for [...] ne(R) and Fragm in(R) ). Not Available [facility] ([facility]) [address] [facility], [place], [address], 10/03/2024 13:07:36 09/18/19 25 09/24/2024 MATER NIT21 PLUS CORE+ SCA note Commwellington t [employer] is a subsi diary of Labor atory Corpo ratio n of Jacquelyn starks, using the brand [employer]. This test was devel oped and its perfo rmanc e emma cteri stics deter mined by [employer]. It has not been clear ed or appro sriram by the Food and Drug Admin istra tion. This labor atory is certi fied under the Clini rebecca Labor atory Impro vemen t Amend ments (CLIA ) as quali fied to perfo rm high compl exity clini rebecca labor atory testi ng and accre dited by the Lana boateng of Jacquelyn blas Patho logis ts (CAP) . If there is futur e clini rebecca need for addin g Mater niT GENOM E testi ng, this speci men will be avail able until term. [facility] sampl es will not be retai vonda beyon d 60 days. [facility] patie nts will have to send a new sampl e for re-se quenc ing (LCA Test Code: 15229 4). Not Available [facility] ([facility]) [address] [facility], [place], [address], 10/03/2024 13:07:36 09/18/19 25 09/24/2024 MATER NIT21 PLUS CORE+ SCA references Commen t 1. Kasey BOATENG, et al. Marco Antonio Med. 2012; 14(3) :296- 305. 2. Daniel HASSAN, et al. Prena t Diag. 2013; 33(6) :591- 597. 3. Tommy C, et al. Clin Chem. 2015 Jun;6 1(4): 608-6 16. 4. Kasey BOATENG, et al. Marco Antonio Med. 2011; 13(11 ):913 -920. 5. [facility] Pract ice Bulle tin No. 226, Dec 2019. Not Available [facility] ([facility]) [address] [facility], [place], [address], 10/03/2024 13:07:36 09/18/19 25 09/24/2024 MATER NIT21 PLUS CORE+ SCA pdf . Not Available [facility] ([facility]) [address] [facility], [place], [address], 10/03/2024 13:07:36 09/18/19 25 10/03/2024 INHER ITEST (R) CORE PANEL genes Commen t 3 genes Not Available [facility] ([facility]) [address] [facility], [place], [address], 10/03/2024 13:07:37 09/18/19 25 10/03/2024 INHER ITEST (R) CORE PANEL ethnicity Commen t Not Provi ded Not Available [facility] ([facility]) [address] [facility], [place], [address], 10/03/2024 13:07:37 09/18/19 25 10/03/2024 INHER ITEST (R) CORE PANEL specimen type Commen t Whole Blood Not Available [facility] ([facility]) [address] [facility], [place], [address], 10/03/2024 13:07:37 09/18/19 25 10/03/2024 INHER ITEST (R) CORE PANEL genetic counselor TUGBOAT MATE Not Available [facility] ([facility]) [address] [facility], [place], [address], 10/03/2024 13:07:37 09/18/19 25 10/03/2024 INHER ITEST (R) CORE PANEL indication Commen t Ana er Test / Scree lisa Not Available [facility] ([facility]) [address] [facility], [place], [address], 10/03/2024 13:07:37 09/18/19 25 10/03/2024 INHER ITEST (R) CORE PANEL result: Commen t NEGAT KURT Not Available [facility] ([facility]) [address] [facility], [place], [address], 10/03/2024 13:07:37 09/18/19 25 10/03/2024 INHER ITEST [...] X NEGAT KURT : PCR Not a ana er of a syndr ome FMR1 repea [...] affec isabell pregn sarah. Not Available [facility] ([facility]) [address] [facility], [place], [address], 10/03/2024 13:07:37 09/18/19 25 10/03/2024 INHER ITEST (R) CORE PANEL general comments TUGBOAT MATE Not Available [facility] ([facility]) [address] [facility], [place], [address], 10/03/2024 13:07:37 09/18/19 25 10/03/2024 INHER ITEST [...] ic Couns yaneli johnson e visit https ://[facility] lena .[facility] orp.c om/ge netic -coun thi mock or call (327) [facility] ([phone]). Not Available [facility] ([facility]) [address] [facility], [place], [address], 10/03/2024 13:07:37 09/18/19 25 10/03/2024 INHER ITEST (R) CORE PANEL additional clinicalinfo rmation TUGBOAT MATE Not Available [facility] ([facility]) [address] [facility], [place], [address], 10/03/2024 13:07:37 09/18/19 25 10/03/2024 INHER ITEST (R) CORE PANEL comments Commen t This inter preta tion is based on the clini rebecca infor matio n provi ded and the curre nt under stand ing of the molec ular marco antonio ics of the disor yeni(s ) teste d. Infor juliet n about the disor yeni(s ) teste d is avail able at https ://[email or web address] [email or web address] .[email or web address] orp.c om. Not Available [facility] ([facility]) [address] [facility], [place], [address], 10/03/2024 13:07:37 09/18/1910/03/2024 INHER ITEST (R) CORE PANEL methods/limi tations Commen t Next- gener ation Seque ncing (NGS) : Genom ic regio ns of inter est are selec isabell using the Aquiris ience (R) hybri dizat ion captu re metho d and seque nced via the [place] 3D efrain(R ) NGS platf orm. Seque ncing [...] ards and guide lines (Rich ards, PMID: 89993 [id number]; Ileana, PMID: 84221 774). Detai led varia nt class ifica [...] erase chain react ion (qPCR ). A angélica michaud al algor ithm calcu lates 0, 1, [...] allel ic discr imina tion qPCR targe ting c.*3+ 80T>G in SMN1 is perfo rmed. [...] e emma cteri stics deter mined by [employer] Marco Antonio Kleermail. It has not been clear ed or appro sriram by the Food and Drug Admin istra tion. [employer] carlos Marco Antonio ic [employer] is a subsi diary of Labor atory Corpo ratio n of [employer], using the brand Tomorrowish. Inher itest (R) and GeneS eq(R) are axel tered servi ce marroquin of Labor atory Corpo ratio n of [employer] ngs. Not Available [facility] ([facility]) [address] [facility], [place], [address], 10/03/2024 13:07:37 09/18/19 25 10/03/2024 INHER ITEST (R) CORE PANEL references Commen t Brandt HASSAN, Roxanna carver M, Dashawn molina S et al. Scree lisa for autos omal reces sive and X-yanira ked condi tions durin g pregn sarah and preco ncept ion: a pract ice resou rce of the [employer] Colle ge of Medic al Marco Antonio ics and Genom ics ([employer] ). Marco Antonio Med 23, 2353 (2020 ). PMID: 91343 390 Not Available [facility] ([facility]) [address] [facility], [place], [address], 10/03/2024 13:07:37 09/18/19 25 10/03/2024 INHER ITEST [...] omal reces sive: SMN1 Not Available [facility] ([facility]) [address] [facility], [place], [address], 10/03/2024 13:07:37 09/18/19 25 10/03/2024 INHER ITEST (R) CORE PANEL director review/relea se Commen t Eland nent Type Perfo rmed At Elysia Dire tor Techn ical Esote carlos Marco Antonio ic Sheila Jones, PhD, compo nent, [employer], FAC proce ssing [address] , [place], [address] Techn ical Esote carlos Marco Antonio ic Sheila Jones, PhD, compo nent, [employer], FACMG maik sis [address] , [place], [address] Profe ssion al Esote carlos Marco Antonio ic Sheila Jones, PhD, compo nent [employer], [employer]ACMG [address] [facility], [facility] [place], [address] Amanda dale relea sed by David Root , PhD, [employer]MG Not Available [facility] ([facility]) [address] [facility], [place], [address], 10/03/2024 13:07:37 09/18/19 25 10/03/2024 INHER ITEST (R) CORE PANEL pdf . Not Available [facility] ([facility]) [address] [facility], [place], [address], 10/03/2024 13:07:37 09/18/19 25 10/03/2024 INHER ITEST (R) CORE PANEL patient gender Female Not Available [facility] ([facility]) [address] [facility], [place], [address], 10/03/2024 13:07:37 09/18/19 25 09/17/2024 urina lysis , dipst ick Leukocytes Trace Not Available [address], [address], 09/16/2024 16:35:06 09/18/19 25 09/17/2024 urina lysis , dipst ick Nitrite negati ve Not Available [address], [address], 09/16/2024 16:35:06 09/18/19 25 09/17/2024 urina lysis , dipst ick Urobilinogen .2 Not Available [address], [address], 09/16/2024 16:35:06 09/18/19 25 09/17/2024 urina lysis , dipst ick Protein Negati ve Not Available [address], [address], 09/16/2024 16:35:06 09/18/19 25 09/17/2024 urina lysis , dipst ick pH 6.0 Not Available [address], [address], 09/16/2024 16:35:06 09/18/19 25 09/17/2024 urina lysis , dipst ick Blood Negati ve Not Available [address], [address], 09/16/2024 16:35:06 09/18/19 25 09/17/2024 urina lysis , dipst ick Specific [place] 1.020 Not Available [address], [address], 09/16/2024 16:35:06 09/18/19 25 09/17/2024 urina lysis , dipst ick Ketone Negati ve Not Available [address], [address], 09/16/2024 16:35:06 09/18/19 25 09/17/2024 urina lysis , dipst ick Bilirubin Negati ve Not Available [address], [address], 09/16/2024 16:35:06 09/18/19 25 09/17/2024 urina lysis , dipst ick Glucose Negati ve Not Available [address], [address], 09/16/2024 16:35:06 09/18/19 25 09/17/2024 urina lysis , dipst ick Appearance Clear Not Available [address], [address], 09/16/2024 16:35:06 09/18/19 25 09/17/2024 urina lysis , dipst ick Color Yellow Not Available [address], [address], 09/16/2024 16:35:06 10/23/1910/22/2024 urina lysis , dipst ick Leukocytes Negati ve Not Available [address] [place], [address], 10/21/2024 14:42:06 10/23/19 25 10/22/2024 urina lysis , dipst ick Nitrite negati ve Not Available [address] [place], [address], 10/21/2024 14:42:06 10/23/1910/22/2024 urina lysis , dipst ick Urobilinogen .2 Not Available [address], [address], 10/21/2024 14:42:06 10/23/19 25 10/22/2024 urina lysis , dipst ick Protein Negati ve Not Available [address], [address], 10/21/2024 14:42:06 10/23/19 25 10/22/2024 urina lysis , dipst ick pH 6.0 Not Available [address], [address], 10/21/2024 14:42:06 10/23/19 25 10/22/2024 urina lysis , dipst ick Blood Negati ve Not Available [address], [address], 10/21/2024 14:42:06 10/23/19 25 10/22/2024 urina lysis , dipst ick Specific [place] 1.020 Not Available [address], [address], 10/21/2024 14:42:06 10/23/19 25 10/22/2024 urina lysis , dipst ick Ketone Negati ve Not Available [address], [address], 10/21/2024 14:42:06 10/23/19 25 10/22/2024 urina lysis , dipst ick Bilirubin Negati ve Not Available [address], [address], 10/21/2024 14:42:06 10/23/19 25 10/22/2024 urina lysis , dipst ick Glucose Negati ve Not Available [address], [address], 10/21/2024 14:42:06 10/23/19 25 10/22/2024 urina lysis , dipst ick Appearance Clear Not Available [address], [address], 10/21/2024 14:42:06 10/23/19 25 10/22/2024 urina lysis , dipst ick Color Yellow Not Available [address], [address], 10/21/2024 14:42:06 12/18/19 25 12/17/2024 urina lysis , dipst ick Leukocytes Negati ve Not Available [address], [address], 12/16/2024 20:31:06 12/18/19 25 12/17/2024 urina lysis , dipst ick Nitrite negati ve Not Available [address], [address], 12/16/2024 20:31:06 12/18/1912/17/2024 urina lysis , dipst ick Urobilinogen .2 Not Available [place] [address], [place], [address], 12/16/2024 20:31:06 12/18/1912/17/2024 urina lysis , dipst ick Protein Negati ve Not Available [address] [place], [address], 12/16/2024 20:31:06 12/18/1912/17/2024 urina lysis , dipst ick pH 6.0 Not Available [address], [address], 12/16/2024 20:31:06 12/18/19 25 12/17/2024 urina lysis , dipst ick Blood Negati ve Not Available [address], [place], [address], 12/16/2024 20:31:06 12/18/19 25 12/17/2024 urina lysis , dipst ick Specific [place] 1.020 Not Available [place] [address] [place], [address], 12/16/2024 20:31:06 12/18/19 25 12/17/2024 urina lysis , dipst ick Ketone Negati ve Not Available [address], [address], 12/16/2024 20:31:06 12/18/19 25 12/17/2024 urina lysis , dipst ick Bilirubin Negati ve Not Available [place] [address] [facility], [place], [address], 12/16/2024 20:31:06 12/18/1912/17/2024 urina lysis , dipst ick Glucose Negati ve Not Available [address], [address], 12/16/2024 20:31:06 12/18/1912/17/2024 urina lysis , dipst ick Appearance Clear Not Available [address], [address], 12/16/2024 20:31:06 12/18/1912/17/2024 urina lysis , dipst ick Color Yellow Not Available [address], [address], 12/16/2024 20:31:06 08/21/19 25 08/20/2024 US, obste tric No observ ation record ed. [address], [place], [address], 08/23/2024 18:14:12 10/22/19 US, obste tric No observ ation record ed. [facility] [address] [place], [address], 10/22/2024 09:32:01 11/20/19 25 11/19/2024 US, obste tric No observ ation record ed. [email or web address] [facility] [address] [place], [address], 11/19/2024 12:32:34 11/20/19 25 11/19/2024 US, obste tric No observ ation record ed. [email or web address] [facility] [address], [place], [address], 11/19/2024 12:32:30 Result Notes None recorded. Problems Name Problem SNOMED Code Status Onset Date Resolution Date Notes Provider Name and Address Organization Details Recorded Time Acne 05952414 Active 2022 Briana Greer DONOR SPECIALIST [address] [place], [address], [employer] 3 12:10:09 14903857 Active 2024 Katie rodriguez, [employer] 5 15:36:25 Family history of complete trisomy 21 syndrome 290432663 Active 2024 Janice Lynne CNM [address] [place] [address], [address], [employer] 5 16:10:38 Family history of disorder 527208015 Active 2024 She has some FH down syndrome on her dad's side and FOB has a brother w Kleinfeltn er's syndrome; NIPT low risk/femal e Janice Lynne CNM [address] [place] [address], [address], [employer] 5 09:36:17 Family history of disorder 003463160 Active 2024 She has some FH down syndrome on her dad's side and FOB has a brother w Kleinfeltn er's syndrome; NIPT low risk/femal e Janice Lynne CNM [address] [place] [address], [address], [employer] 5 09:36:17 Anemia of 94694460 Active 2024 dx at 28 wks iron studies ordered oral iron initiated iron infusions requested Janice Lynne CNM [address] [place] [address], [address], [employer] [employer] 5 15:27:15 Anemia of 98964752 Active 2024 dx at 28 wks iron studies ordered oral iron initiated iron infusions requested Janice Lynne CNM [address] [place], [address], [employer]. 15:27:14 Iron deficiency anemia of 165493246 Active 2024 Janice Lynne CNM [address] [place], [address], [employer] 5 21:05:59 Problem Notes None recorded. Procedures Surgical History Date Name Laterality Status Provider Name and Address Organization Details Recorded Time 2 Date of Last Pap Smear completed Tram Arvizu [employer]. 10/29/2023 11:28:33 Gallbladder Surgery completed Katie Peraza [employer]. 08/20/2024 15:38:58 Imaging Results None recorded. Procedure [...] Organization Details Last Updated DateTime 162.56 cm 32.8 kg/m2 07109.8 6 g 103 /min 99 % 99 % 124/88 mm[Hg] [facility] [employer] 09:43:55 Social History Question Answer Notes LastModified by [employer] Details LastModified Time Tobacco Smoking Status Never Smoker SocialHist oryQuestio n: 'Tobacco/A lcohol/Sup plements'; SocialHist oryRespons e: 'Never Smoker'; Not Available [facility] 11/22/2021 23:01:21 If You Are , What Was Your Level Of Alcohol Consumption Prior To ? None [email or web address] Information not available 10/29/2023 What Is Your Level Of Caffeine Consumption? None [email or web address] Information not available 10/29/2023 What Was The Date Of Your Most Recent Tobacco Screening? 01/14/2025 [email or web address] Information not available 01/07/2025 Has Tobacco Cessation Counseling Been Provided? No [email or web address] Information not available 10/29/2023 Sex: Unknown Functional Status Question Answer Note LastModified by [employer] ion Details LastModified Time Do you use any illicit or recreational drugs? No [email or web address] Information not available 10/29/2023 Do you or have you ever used any other forms of tobacco or nicotine? No [email or web address] Information not available 10/29/2023 What is your level of alcohol consumption? None [email or web address] Information not available 10/29/2023 Mental Status None recorded. Family History Relationship Description Onset Age of this Age Resolved Age Notes LastModified by Organization Details LastModified Time Mother Heart disease 40 [email or web address] Not available 08/2024 09:39:45 Father Disorder of thyroid gland 59 [email or web address] Not available 08/2024 09:39:45 Medical History Condition Response Allergies (Food, seasonal, environmental ) Y Other N Hyperthyroidism N Breast Cancer N Drug/Latex Allergies/Reactions N Blood Transfusion N Emergency room visit since last appointm ent. N Hypothyroidism N Lung Disease N Dermatologic Disorders N Defects or Inherited Disease N Breast Problem N Gestational Diabetes N Hematologic disorders N Anesthesia Complications N History of STI N Deep Vein Thrombosis N Polycystic ovary syndrome N Anxiety Disorder N Autoimmune disease N Vision or Eye Problems N Arthritis N Polyps N Infertility N Mental Disorder N Congenital Anomalies N Acid Reflux (GERD) Y History of abnormal pap N Cancer N Stroke N Neurologic/Epilepsy N Endometriosis N High Cholesterol N Organ Transplant N Psychiatric/Mental Health Condition N Fibromyalgia N Schizophrenia N Dialysis N Headaches N Kidney Disease N Heart Problems N Hospitalizations N Thyroid Problems N Kidney or Bladder Problems N GI Problems N Acne Y Eating Disorder N Anemia N Art (IVF or FET) N Mental Illness N Diabetes N Ovarian Cancer N Pulmonary (TB, Asthma) N Hepatitis/Liver Disease [...] 100 mcg/0.5mL dose or 50 mcg/0.25mL dose completed Talia rodriguez [employer] 05/11/2022 11:43:24 COVID-19, mRNA, LNP-S, PF, 100 mcg/0.5mL dose or 50 mcg/0.25mL dose 1 completed Talia Gayleer null, [employer] 05/11/2022 11:43:24 Tdap 5 completed Katie Peraza null, [employer] 01/14/2025 09:19:26 Influenza, split virus, trivalent, preservative 4 completed Not Available [facility] 01/14/2025 08:34:49 Past Encounters Encounter ID Performer Location Encounter Start Date Encounter Closed Date Diagnosis/Indication Diagnosis SNOMED-CT Code Diagnosis ICD10 Code Diagnosis IMO Codes Diagnosis Note [id number] Janice Lynne CNM [employer] [facility] [address] [employer] [facility] [place] [address] 11/19/2024 08:03:09 11/19/2024 09:27:45 Intrauterine 33838336 Z34.90 [id number] Janice Lynne CNM [employer] [facility] [address] [employer] [facility] [address] 12/17/2024 09:33:08 12/17/2024 10:13:30 Intrauterine 30071742 Z34.90 [id number] Health Concerns Section Related Observation LastModified by Organization Detai ls LastModified Time None Recorded Concern Status LastModified by Organization Details LastModified Time None Recorded Payers Encounter Date Sequence Insurance Name Policy Number Policy [place] Covered Member ID Austin Member ID Guarantor Name 12/17/2024 1 [facility] (MEDICAID HMO) Johana Higginbotham [id number] Johana Higginbotham Notes Date Note Type Note Provider Name and Address Organization Details Recorded Time 12/17/2024 text/html Generic HPI TemplateReported by PatientROS as noted in the HPI Pt is 24w2d gestation She presents for care She is taking her vitamins She reports no vaginal bleeding or LOF She denies any abd pain/contraction pattern She denies headache or visual disturbances Janice Lynne CNM [address] [place] [address], [phone], [employer] 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 peds ? pp contraglucola done: failed passed the 3 hr tdap given Problem Name Start Date End Date Resolution Snomed Code Not e Anemia of 01/15/2025 47673834 dx at 28 wks iron studies ordered oral iron initiated iron infusions requested Family history of disorder 08/20/2024 [id number] She has some FH down syndrome on [...] Date Ultra Sound Latest Days Gestation 0 [email or web address] 08/20/2024 04/06/19 26 0 Pre- Flowsheet Flowsheet Date 08/20/2024 Desai Score Blood Edema Fundus Height Fundus Units Glucose Ketones Leukocytes Nitrite Labor Signs Protein Cervic Dilation Cervic Effacement Cervic Station none none Type Weight in lbs Pre/Post Dialysis Refused With clothes 166.104169246788 BP Diastolic BP Location Tested BP Systolic [...] in lbs Pre/Post Dialysis Refused With clothes 169.895185473281 BP Diastolic BP Location Tested BP Systolic [...] in lbs Pre/Post Dialysis Refused With clothes 173.553187310474 BP Diastolic BP Location Tested BP Systolic [...] in lbs Pre/Post Dialysis Refused With clothes 181.911022829233 BP Diastolic BP Location Tested BP Systolic [...] in lbs Pre/Post Dialysis Refused With clothes 191.98806219736 BP Diastolic BP Location Tested BP Systolic [...] in lbs Pre/Post Dialysis Refused With clothes 196.090144609051 BP Diastolic BP Location Tested BP Systolic [...] At Estimated Date of Delivery false Thalassemia (Peruvian, Palauan, Mediterranean, Or Background): MCV < 80 false Neural Tube Defect (Meningom yelocele, Spina Bifida, Or Anencephaly) false Congenital Heart Defect false Down Syndrome true her father's malika e of the family Saurabh-Sachs (eg, Orthodox, Cajun , [place] Citizen-Capron) false Sue Disease false Sickle Cell Disease Or Trait () false Hemophilia Or Other Blood Disorders false Muscular Dystrophy false Cystic Fibrosis false [place]'s Chorea false Intellectual Disability/Autism false If Yes, Was Person Tested For Fragile X? false Other Inherited Genetic Or C hromosomal Disorder true his brother has Branden 's Maternal Metabolic Disorder (eg, Type 1 [...]
--- OUTSIDE RECORDS SUMMARY | 2025-01-26 19:30 | XMS_ITS | Encounter Summary ---
Author Organization [facility] Address [address] [place] [address] Care Team Providers Care Workforce Manager Name Role Phone RichyPromise osuna Sierra NICHOLSON Primary Care Provider [phone] Encounter Details Date Type Department Care Team (Latest Contact Info) Description 12/07/2024 Travel Social History Tobacco Use Types Packs/Day Years [...] Description 02/03/2025 11:00 AM EST Office Visit [facility] [address] [place] [address] Roma Vaz [address] [place] [address] 04/23/2025 9:30 AM EST Office Visit [facility] [address] [place] [address] Rashid Vale MD [address] [address] documented as of this encounter Visit Diagnoses Not on filedocumented in this encounter Additional Health Concerns Assessment Noted Time A fall risk assessment has been complete d for the patient 09/18/2024 9:30 AM EDT A Body Mass Index follow-up plan has been documented for the patient 05/20/2024 2:22 PM EST documented as of this encounter Care Teams Workforce Manager Relationship Specialty Start Date End Date Promise Green DO [address] [place] [address] PCP - General 09/21/20 documented as of this encounter
--- OUTSIDE RECORDS SUMMARY | 2025-01-26 19:30 | XMS_ITS | Encounter Summary ---
Author Organization [facility] Address [address] [place] [address] Care Team Providers Care Synoptic Meteorologist Name Role Phone RichyPromise osuna Sierra NICHOLSON Primary Care Provider [phone] Encounter Details Date Type Department Care Team (Latest Contact Info) Description 12/10/2024 Travel Social History Tobacco Use Types Packs/Day [...] Description 02/03/2025 11:00 AM EST Office Visit [facility] [address] [place] [address] Roma Vaz [address] [place] [address] 04/23/2025 9:30 AM EST Office Visit [facility] [address] [place] [address] Rashid Vale MD [address] [address] documented as of this encounter Visit Diagnoses Not on filedocumented in this encounter Additional Health Concerns Assessment Noted Time A fall risk assessment has been complete d for the patient 09/18/2024 9:30 AM EDT A Body Mass Index follow-up plan has been documented for the patient 05/20/2024 2:22 PM EST documented as of this encounter Care Teams Synoptic Meteorologist Relationship Specialty Start Date End Date Promise Green DO [address] [place] [address] PCP - General 09/21/20 documented as of this encounter
--- OUTSIDE RECORDS SUMMARY | 2025-01-26 19:30 | XMS_ITS | Data Portability ---
Author Organization [facility] ELINA [facility] Address [address] [place] [address] Care Team Providers Care Top And Seat Cover Fitter Name Role Phone CLARE ALEJANDRO Primary Care Provider [facility] Primary Care Provider Assessment Encounter Date Assessment Date Assessment LastModified by Organization Details LastModified Time 08/26/2020 08/26/2020 A 25 year old female [email or web address] Not available 08/26/2020 14:26:37 Plan of Treatment Reminders Order Date Submit Date Provider Last Modified By Organization Details Last Modified Time Details Appointments None recorded. Lab JARON (antinucle ar antibodies ) panel, serum 2020 021 [facility] [[email or web address] Laboratory, [address] [place] [address], [phone], 1 06:58:08 hoover Ab + track laborer Ab, serum 2020 021 [email or web address], [address] [place] [address], [phone], 1 13:44:45 Referral genetics referral - Jose score 7/9. 2020 021 [email or web address] [facility], [address] [place] [address] ([place] [address])[place], [address], 2 08:17:12 Procedures None recorded. Surgeries None recorded. Imaging None recorded. Medication Orders None recorded. Patient TargetsNo targets recorded. Patient Instructions Encounter Date Encounter Id Patient Instructions Last Modified By Organization Details Last Modified Time 08/26/2020 [id number] I personally reviewed her referral documents including PCP note and labs. ( CBC, CMP, JARON, ESR, CRP and sub serology for JARON and all resulted within normal limit with exception of very mild +ve GAMEWELL OPERATOR. Thank you for the trust and confidence you have in the care that I provided for your patients. Please let me know if you have any further questions or concerns. Part of this note was generated using voice recognition software; inadvertent word errors may have occurred, which were not recognized during proofreading process. Yaz Milner MD, CCD, FACP [email or web address] Not available 08/26/2020 14:35:28 Reason for Referral Genetics Referral for Hyperm obility syndrome [place] score 7/9. Referring Physician: Yaz Milner, Rheumatology, Encounter Date: 08/26/2020 Results Created Date Observation Date Name Description Value Unit Range Abnormal Flag Note LastModifiedBy Organization Detail LastModifiedTime Result Notes None recorded. Medical Equipment None Reported. Allergies No known drug allergies Medications Name Sig Start Date Stop Date Status Note LastModified by Organization Details LastModified Time fluoxetin e 40 mg capsule TAKE 1 CAPSULE BY MOUTH EVERY DAY active Not Available Not Available No t Available amoxicill in 500 mg capsule TAKE 1 CAPSULE BY MOUTH THREE TIMES A DAY active Not Available Not Available No t Available promethaz ine-DM 6.25 mg-15 mg/5 mL oral syrup TAKE 5 MILLILIT ERS BY MOUTH EVERY EVENING active Not Available Not Available No t Available prednison e 10 mg tablet active finished script Not Available Not Available Not Available azithromy ayleen 250 mg tablet TAKE 2 TABLETS BY MOUTH TODAY, THEN TAKE 1 TABLET DAILY FOR 4 DAYS active Not Available Not Available No t Available ibuprofen 800 mg tablet as needed active Not Available Not Available No t Available fluconazo le 150 mg tablet TAKE 1 TABLET BY MOUTH EVERY DAY FOR 2 DAYS active Not Available Not Available No t Available hydroquin one 4 % topical cream APPLY TO AREA TWICE DAILY 08/26 completed Not Available Not Available Not Available metronida zole 500 mg tablet TAKE 1 TABLET BY MOUTH TWICE A DAY FOR 7 DAYS active Not Available Not Available No t Available tretinoin 0.05 % topical cream APPLY TO AFFECTED AREA AT BEDTIME DIRECTED active Not Available Not Available No t Available triamcino lone acetonide 0.1 % topical cream APPLY TO AFFECTED AREA TWICE A DAY FOR 2 WEEKS active Not Available Not Available No t Available triamcino lone acetonide 0.1 % topical ointment APPLY THIN COAT TO AFFECTED AREA TWICE A DAY active Not Available Not Available No t Available omeprazol e 20 mg capsule,d elayed release active Not Available Not Available Not Available monteluka st 10 mg tablet TAKE 1 TABLET BY MOUTH EVERY EVENING active Not Available Not Available No t Available brompheni ramine-ps eudoephed rine-DM 2 mg-30 mg-10 mg/5 mL oral syrup TAKE 1 TO 2 TEASPOON SFUL BY MOUTH EVERY 4 TO 6 HOURS active Not Available Not Available No t Available ondansetr on 4 mg disintegr ating tablet DISSOLVE 1 TABLET ON THE TONGUE EVERY 8 HOURS NEEDED FOR NAUSEA active Not Available Not Available No t Available cefdinir 300 mg capsule TAKE 1 CAPSULE BY MOUTH TWICE A DAY active Not Available Not Available No t Available fluoxetin e 20 mg capsule TAKE 1 CAPSULE BY MOUTH DAILY active Not Available Not Available No t Available fluticaso ne propionat e 50 mcg/actua tion nasal spray,rachele pension INSTILL 1 SPRAY INTO EACH NOSTRIL DAILY active Not Available Not Available No t Available amoxicill in 500 mg-potass ium clavulana te 125 mg tablet TAKE 1 TABLET BY MOUTH TWICE A DAY FOR 7 DAYS 08/26 completed Not Available Not Available Not Available clindamyc in phosphate 1 % topical solution APPLY TO AFFECTED AREA EVERY DAY 08/26 completed Not Available Not Available Not Available levocetir izine 5 mg tablet TAKE 1 TABLET BY MOUTH EVERY EVENING active Not Available Not Available No t Available Mucus DM Max ER 60 mg-1,200 mg tablet,ex tended release TAKE 1 TABLET BY MOUTH EVERY DAY 08/26 completed Not Available Not Available Not Available Tri-Estar ylla (28) 0.18 mg(7)/0.2 15 mg(7)/0.2 5 mg(7)-0.0 35 mg tablet TAKE 1 TABLET BY MOUTH EVERY DAY active Not Available Not Available No t Available Vitals Date Recorded Body weight Body mass index (BMI) Body height Heart rate Systolic And Diastolic Provider Name and Address Organization Details Last Updated DateTime 08/26/2020 86756.33 g 29.4 kg/m2 160.02 cm 66 /min 112/66 mm[Hg] Ramila phillips [facility] 08/26/2020 13:35:06 Social History Question Answer Notes LastModified by Organizat ion Details LastModified Time Tobacco Smoking Status Never Smoker [facility] 08/26/2020 13:33:10 How Much Tobacco Do You Chew? None Information not available 08/26/2020 What Was The Date Of Your Most Recent Tobacco Screening? 08/26/2020 Information not available 08/26/2020 How Much Tobacco Do You Smoke? No Information not available 08/26/2020 How Many Years Have You Smoked Tobacco? 0 Information not available 08/26/2020 Sex: Unknown Functional Status Question Answer Note LastModified by Organizat ion Details LastModified Time Do you or have you ever used smokeless tobacco? Never used smokeless tobacco Information not available 08/26/2020 Do you or have you ever used e-cigarettes or vape? Never used electronic cigarettes Information not available 08/26/2020 Mental Status None recorded. Family History Nothing Reported. Medical History Condition Response Emphysema N COPD N Diabetes N Bleeding Disorder N Arthritis N Acid Reflux (GERD) Y Asthma N Heart Disease N Rheumatoid Arthritis N Hypertension N Gynecological HistoryNo gynecological history recorded. Obstetrics History GPAL:G 0 P 0 0 0 0 Past Encounters Encounter ID Performer Location Encounter Start Date Encounter Closed Date Diagnosis/Indication Diagnosis SNOMED-CT Code Diagnosis ICD10 Code Diagnosis IMO Codes Diagnosis Note [id number] YAZ MILNER MD [facility] [address] [place] [address] 08/26/2020 13:13:38 08/26/2020 14:13:19 Ribonucleoprotein antibody detected 834608190 R89.4 GAMEWELL OPERATOR positive at PCP office 1.2, very mild, done with bead assay method which carry very high risk of false positive. No clear underlying CTD per her current hx, physical examinatio n and available labs. She had negative SM, DsDNA, SSA, SSB, centromere , DsDNA, Scleroderm ab and anti jo1. She has normal APR. Normal CBC and CMP. No sclerodact yly, Raynaud's phenomenon , joint swelling, joint symptoms, shortness of air, skin rash. No hx of fever, blood clots, alopecia, iritis, seizure, loss or miscarriag es. I will recheck her GAMEWELL OPERATOR with IF method. I did assure Johana that I don't recognize any clear underlying autoimmune CTD at this time. I would monitor and have her f/up with us in 12 months. Hypermobil ity syndrome 36808735 M35.7 Jose score 09/24. No arthralgia No hx of eye or cardiac disease +ve family hx of CAD Genetic referral for further evaluation for ED syndrome. Provided with handout on Hypermobil ity syndrome special exercise and how to take care of her joints. Health Concerns Section Related Observation LastModified by Organization Detai ls LastModified Time None Recorded Concern Status LastModified by Organization Details LastModified Time None Recorded Advance Directives Directive None Recorded Payers Insurance Date Sequence Insurance Name Policy Number Policy [place] Covered Member ID Austin Member ID Guarantor Name 08/27/2021 1 [facility] (PP[facility]) [id number] Dorene Higginbotham [id number] Johana Neftaly Notes Date Note Type Note Provider Name and Address Organization Details Recorded Time 08/26/2020 text/html A 25-year-old female with anxiety, allergic rhinitis, here in consultation by her PCP to evaluate mild +Ve [employer]WELL OPERATOR. She had ER visit early July 2020 for chest pain and told her it was pleurisy. Rx with steroid and had some relief at ER. PCP Rx her with course of oral azithromycin and NSAID. Per the referral note she had CXR, EKG at ER visit. After she did see her PCP early July she went to ED 2nd time as her symptoms not quite improving and was put on PPI and that took care of her symptoms dx with acid reflux . Today she feels pretty well, no symptoms. She denies cough, chest pain, shortness of air, fever, hemoptysis, gross hematuriea, joint swelling, sick contact, hematemesis, diarrhea, chills, skin rash. No hx of psoriasis, IBD and renal stone. No hx of Iritis, seizure, alopecia, Raynaud s phenomenon, blood clots, loss or miscarriages. She does not smoke and rarely drink EtoH. 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 Lives with her mom and sister. She is done with COVID-19 vaccination. YAZ MILNER MD [address] [place] [address], [phone], [facility] 08/26/2020 14:38:04 OBGyn Episode No OBEpisode recorded.
--- OUTSIDE RECORDS SUMMARY | 2025-01-26 19:30 | XMS_ITS | Encounter Summary ---
Author Organization [facility] Address [address] [place] [address] Care Team Providers Care Store Lead Name Role Phone RichyPromise osuna Sierra NICHOLSON Primary Care Provider [phone] Encounter Details Date Type Department Care Team (Latest Contact Info) Description 12/11/2024 Travel Social History Tobacco Use Types Packs/Day [...] Description 02/03/2025 11:00 AM EST Office Visit [facility] [address] [place] [address] Roma Vaz [address] [place] [address] 04/23/2025 9:30 AM EST Office Visit [facility] [address] [place] [address] Rashid Vale MD [address] [address] documented as of this encounter Visit Diagnoses Not on filedocumented in this encounter Additional Health Concerns Assessment Noted Time A fall risk assessment has been complete d for the patient 09/18/2024 9:30 AM EDT A Body Mass Index follow-up plan has been documented for the patient 05/20/2024 2:22 PM EST documented as of this encounter Care Teams Store Lead Relationship Specialty Start Date End Date Promise rGeen DO [address] [place] [address] PCP - General 09/21/20 documented as of this encounter
--- OUTSIDE RECORDS SUMMARY | 2025-01-26 19:30 | XMS_ITS | Data Portability ---
Author Organization [facility] ADMIN Address [address] [place] [address] Care Team Providers Care Ranch Hand Supervisor Name Role Phone CLARE ALEJANDRO Primary Care Provider Assessment No assessment recorded. Plan of Treatment Reminders Order Date Submit Date Provider Last Modified By Organization Details Last Modified Time Details Appointments None recorded. Lab None recorded. Referral None recorded. Procedures None recorded. Surgeries None recorded. Imaging unlisted imaging order - ugi with esophagram wo KUB [address] (Central Scheduling), [address] [place] [address] [place], [address], 5 15:59:53 NM, hepatobilia ry scan, w/ CCK [address] (Central Scheduling), [address] [place] [address] [place], [address], 4 09:37:32 US, gallbladder 2023 024 [facility] (Central Scheduling), [address] [place] [address] [place], [address], 4 22:51:34 Medication Orders amoxicillin 875 mg-potassiu m clavulanate 125 mg tablet 2024 025 [id number], [address] [place], [address], 5 17:51:26 Patient TargetsNo targets recorded. Patient InstructionsNo instructions recorded. Reason for Referral None Reported. Results Created Date Observation Date Name Description Value Unit Range Abnormal Flag Note LastModifiedBy Organization Detail LastModifiedTime 03/05/20 24 03/05/2024 RFS-P ATHOL OGY SPECI MEN REQUE ST pathreq Patho logy [address] [place] [address] Phone or [phone] Fax Carlos devlin Jr., M.D., Medic al Direc tor [facility] [address] : [place] [address] Phone Numbe r: [id number] [phone] Yony gaviria M.D. PATHO LOGY REPOR T Patie nt Name: LATA ELIZABETH Date of : 9[birth year] Age/S ex: 28/F Accou nt Numbe r: [id number] Medic al Recor d Numbe r: [id number] Order ing MD: CARIDAD BEJARANO LLRekha Date Colle cted : 03/03 Date Recei sriram : 03/03 Date Repor isabell : 03/05 Exam: Biops y Acces randy# : [id number] Labor atory #: [id number] Copie s To: Techn ician : Clini rebecca Histo ry Chron ic olegario cysti tis BodyS ite GALLB LADDE R Gross Descr iptio n Speci men recei sriram in forma yanira label ed gall bladd er and consi sts of an intac t saccu lar gallb ladde r measu ring 5.3 x 2.3 x 2.2 cm. The wall thick ness avera ges 0.2 cm. The seros al surfa ce is glist ening wrink led and green , the mucos al surfa ce is velve ty green . The cyst duct measu res 0.5 cm in lengt h. There are no stone s ident ified . Repre senta tive secti ons inclu ding cysti c duct andria n are submi tted in a singl e casse tte. JTM/R LL Micro scopi c Descr iptio n Secti ons of the gallb ladde r show scatt ered Rokit ansky -Asch off sinus es. There is a spars e infil trate of chron ic infla mmato ry cells in all layer s. Epith elial atypi a is not seen. Final Diagn osis MILD CHRON IC OLEGARIO CYSTI TIS EJT/[place] [id number] Legal ly authe ntica isabell by YONY BERG MD 03-05 11:19 :00 Not Available [facility] (Pre-Op Clinic) [address] [place] [address] [place], [address], 03/05/2024 11:48:14 10/04/19 24 10/04/2023 US, rafa devlin No observ ation record ed. [facility] (Registration ) [address] [place] [address] [place], [address], 11/01/2023 09:33:06 12/25/19 24 12/25/2023 NM, hepat obili charissa scan, w/ CCK [facility] [address] [place] [address] [phone] (Phone ) SHAQUILLE Gray REPORT Name: DANIEL HAIR : 1995 Accoun t #: [id number] Age: 28 Years Patien t Type: Outpat ient Sex: F Access ion#: [id number] Exam Descri ption: NM HEPAT SCAN WITH CCK Exam Reason : r10.11 ruq pain Order Date/T monty: 2023 12:51: 00 PM Dictat ed By: Brian Kinney MD Orderi Physic liane: CLAU DIAZ Attend ing Physic liane: CLAU DIAZ EXAM: NM HEPATO BILIAR Y WITH PHARM Reason For Study: r10.11 ruq pain COMPAR THU: None availa ble at time of interp retati on. TECHNI QUE: As below Findin gs: The patien t was given 7.4mCi of techne tium 99 Cholet ec IV and images of the right upper quadra nt were obtain ed. Gallbl adder activi ty is seen approx imatel y 5 minute s and bile duct activi ty is noted at 10 minute s. Bowel activi ty can be visual ized after 20 minute s. After comple te fillin g of the gallbl adder with radiot racer the patien t is given a 1.4 mcg CCK infusi on and the ejecti on fracti on 30%. IMPRES RANDY:L ow gallbl adder ejecti on fracti on consis tent with chroni c cholec ystiti s. No acute cholec ystiti s or biliar y obstru ction demons trated . Electr onical ly signed by: Brian Kinney MD 2023 03:38 PM EDT RP Workst ation: [id number] PAGE 1 OF 2 Name: DANIEL HAIR : 1995 Accoun t #: [id number] Age: 28 Years Patien t Type: Outpat ient Sex: F Access ion#: [id number] Exam Descri ption: NM HEPAT SCAN WITH CCK Exam Reason : r10.11 ruq pain Order Date/T monty: 2023 12:51: 00 PM Princi pal Interp reter Name: Brian Kinney Provid er ID: [id number] PAGE 2 OF 2 CC'ed Logic: Orderi ng Provid er: DAVIDSON FLORES CC Provid er: JAVON SPARKS Attend ing Provid er: DAVIDSON FLORES Referr ing Provid er: DAVIDSON FLORES Admitt ing Provid er: DAVIDSON FLORES ohowell2 [facility] (Central Scheduling) [address] [place] [address], [address], 12/27/2023 09:42:39 Result Notes Documentation Provider Name and Address Organization Details Recorded Time Nm, Hepatobiliary Scan, W/ Cck : [address] [address] (Phone) IMAGING REPORT ___ Name: CONTRERAS CEDILLO : 1995 Age: 28 Years Patient Type: Outpatient Sex: F Exam Description: NM HEPAT SCAN WITH CCK Exam Reason: r10.11 ruq pain Order Date/Time: 12/25/2023 12:51:00 PM Dictated By: Brian Kinney MD Ordering Physician: KIMBERLEY DIAZ Attending Physician: KIMBERLEY DIAZ ___ EXAM: NM HEPATOBILIARY WITH PHARM Reason For Study: r10.11 ruq pain COMPARISON: None available at time of interpretation. TECHNIQUE: As below Findings: The patient was given 7.4mCi of technetium 99 Choletec IV and images of the right upper quadrant were obtained. Gallbladder activity is seen approximately 5 minutes and bile duct activity is noted at 10 minutes. Bowel activity can be visualized after 20 minutes. After complete filling of the gallbladder with radiotracer the patient is given a 1.4 mcg CCK infusion and the ejection fraction 30%. IMPRESSION:Low gallbladder ejection fraction consistent with chronic cholecystitis. No acute cholecystitis or biliary obstruction demonstrated. Electronically signed by: Brian Kinney MD 12/25/2023 03:38 PM EDT RP PAGE 1 OF 2 Name: CONTRERAS CEDILLO : 1995 Age: 28 Years Patient Type: Outpatient Sex: F Exam Description: NM HEPAT SCAN WITH CCK Exam Reason: r10.11 ruq pain Order Date/Time: 12/25/2023 12:51:00 PM ___ Principal Registered Safety Engineer Name: Brian Kinney Provider ID: [id number] PAGE 2 OF 2 CC'ed Logic: Ordering Provider: DAVIDSON CHU CC Provider: JAVON SPARKS Attending Provider: DAVIDSON CHU Referring Provider: DAVIDSON CHU Admitting Provider: LEE ANN Barroso - [facility] [place] 12/27/2023 09:42:39 Procedures Surgical History Date Name Laterality Status Provider Name and Address Organization Details Recorded Time Appendectomy completed Nydia NANCE - [facility] [place] 07/25/2023 10:07:55 Cholecystectomy completed Melyssa NANCE - [facility] [place] 03/28/2024 09:54:21 Imaging Results None recorded. Procedure Notes None [...] BY MOUTH EVERY 8 HOURS UNTIL FINISHED 07/24 completed Not Available Not Available Not Available promethazin e-DM 6.25 mg-15 mg/5 mL oral syrup TAKE 5 MILLILITE RS BY MOUTH EVERY 6 HOURS NEEDED FOR COUGH/CON GESTION/D RAINAGE 07/24 completed Not Available Not Available Not Available azithromyci n 250 mg tablet TAKE 2 TABLETS BY MOUTH TODAY, THEN TAKE 1 TABLET DAILY FOR 4 DAYS DIRECTED 07/24 completed Not Available Not Available Not Available fluconazole 150 mg tablet TAKE 1 TABLET BY MOUTH EVERY 72 HOURS active Not Available Not Available No t Available hydrocodone 5 mg-acetamin ophen 325 mg tablet TAKE 1 TABLET BY MOUTH EVERY FOUR HOURS NEEDED FOR MODERATE PAIN: 4-6 PAIN SCALE 03/28 completed Not Available Not Available Not Available sucralfate 1 gram tablet TAKE 1 TABLET BY MOUTH FOUR TIMES A DAY 01/08 completed Not Available Not Available Not Available Advair Diskus 100 mcg-50 mcg/dose powder for inhalation INHALE 1 PUFF DIRECTED TWICE A DAY RINSE MOUTH AFTER USE. 07/24 completed Not Available Not Available Not Available fexofenadin e 180 mg tablet TAKE 1 TABLET BY MOUTH EVERY DAY active Not Available Not Available No t Available tretinoin 0.05 % topical cream APPLY 1 APPLICATI ON AT BEDTIME TOPICALLY 07/24 completed Not Available Not Available Not Available sulfamethox azole 800 mg-trimetho prim 160 mg tablet TAKE 1 TABLET BY MOUTH TWICE A DAY 04/23 completed Not Available Not Available Not Available acetaminoph en 500 mg tablet TAKE 2 TABLETS BY MOUTH EVERY 8 HOURS NEEDED FOR MILD PAIN (1-3 ON PAIN SCALE) 03/28 completed Not Available Not Available Not Available amoxicillin 875 mg tablet TAKE 1 TABLET BY MOUTH TWICE A DAY FOR 10 DAYS 07/24 completed Not Available Not Available Not Available famotidine 20 mg tablet TAKE 1 TABLET BY MOUTH EVERY 12 HOURS FOR 10 DAYS 09/26 completed Not Available Not Available Not Available pantoprazol e 40 mg tablet,annette yed release TAKE 1 TABLET BY MOUTH DAILY active Not Available Not Available No t Available erythromyci n 5 mg/gram (0.5 %) eye ointment APPLY 1 CM RIBBON TO EYELIDS EVERY 4 TO 6 HOURS 07/24 completed Not Available Not Available Not Available lansoprazol e 30 mg capsule,del ayed release TAKE 1 CAPSULE BY MOUTH EVERY DAY active Not Available Not Available No t Available promethazin e 25 mg tablet TAKE 0.5-1 TABLET BY MOUTH EVERY 6 HOURS NEEDED NAUSEA/VO MITING 10/30 completed Not Available Not Available Not Available nystatin-tr iamcinolone 100,000 unit/g-0.1 % topical cream APPLY ON SKIN TWICE DAILY 10/30 completed Not Available Not Available Not Available montelukast 10 mg tablet active Not Available Not Available Not Available epinephrine 0.3 mg/0.3 mL injection, auto-inject or active Not Available Not Available Not Available ibuprofen 600 mg tablet TAKE 1 TABLET BY MOUTH EVERY 6 HOURS NEEDED FOR MILD PAIN (1 TO 3 ON PAIN SCALE) 03/28 completed Not Available Not Available Not Available bromphenira mine-pseudo ephedrine-D M 2 mg-30 mg-10 mg/5 mL oral syrup TAKE 10 MILLILITE R BY MOUTH EVERY 4 TO 6 HOURS 07/24 completed Not Available Not Available Not Available fluticasone propionate 50 mcg/actuati on nasal spray,suspe nsion SPRAY 2 SPRAYS INTO EACH NOSTRIL EVERY DAY active Not Available Not Available No t Available spironolact one 50 mg tablet TAKE 1/2 TABLET DAILY FOR 2 WEEKS AND THEN ONE TABLET DAILY 07/24 completed Not Available Not Available Not Available amoxicillin 875 mg-potassiu m clavulanate 125 mg tablet TAKE 1 TABLET BY MOUTH EVERY 12 HOURS FOR 5 DAYS active Not Available Not Available No t Available metformin ER 750 mg tablet,exte nded release 24 hr TAKE 1 TABLET BY MOUTH EVERY DAY 07/24 completed Not Available Not Available Not Available levocetiriz ine 5 mg tablet TAKE 1 TABLET BY MOUTH EVERY DAY IN THE EVENING active Not Available Not Available No t Available Senexon-S 8.6 mg-50 mg tablet TAKE 1 TABLET BY MOUTH EVERY DAY active Not Available Not Available No t Available Vitals Date Recorded Body height Body mass index (BMI) Body weight Heart rate Oxygen saturation Oxygen saturation in Arterial blood by Pulse oximetry Body temperature Systolic And Diastolic Provider Name and Address Organization Details Last Updated DateTime 5 160.02 cm 29.1 kg/m2 53013.5 9 g 87 /min 99 % 99 % 96.9 [degF] 127/78 mm[Hg] Melyssa NANCE - [facility] [place] 5 09:53:17 Date Recorded Body height Body mass index (BMI) Body weight Heart rate Oxygen saturation Oxygen saturation in Arterial blood by Pulse oximetry Body temperature Systolic And Diastolic Provider Name and Address Organization Details Last Updated DateTime 5 160.02 cm 28.7 kg/m2 63241.0 4 g 82 /min 97 % 97 % 96.9 [degF] 131/76 mm[Hg] Melyssa NANCE - [facility] [place] 5 11:09:19 Date Recorded Body height Body mass index (BMI) Body weight Heart rate Oxygen saturation Oxygen saturation in Arterial blood by Pulse oximetry Body temperature Systolic And Diastolic Provider Name and Address Organization Details Last Updated DateTime 4 160.02 cm 30.5 kg/m2 23913.8 9 g 69 /min 99 % 99 % 98.1 [degF] 114/80 mm[Hg] Nydia NANCE - [facility] [place] 4 11:56:13 Date Recorded Body height Body mass index (BMI) Body weight Heart rate Oxygen saturation Oxygen saturation in Arterial blood by Pulse oximetry Body temperature Systolic And Diastolic Provider Name and Address Organization Details Last Updated DateTime 4 160.02 cm 30.7 kg/m2 25137.5 6 g 79 /min 98 % 98 % 97.9 [degF] 142/98 mm[Hg] Melyssa NANCE - [facility] [place] 4 14:18:24 Date Recorded Body height Body mass index (BMI) Body weight Heart rate Oxygen saturation Oxygen saturation in Arterial blood by Pulse oximetry Pain severity - 0-10 verbal numeric rating [Score] - Reported Body temperature Heart rate Systolic And Diastolic Provider Name and Address Organization Details Last Updated DateTime 4 160.02 cm 28.9 kg/m2 44170.5 6 g 94 /min 98 % 98 % 0 97.7 [degF] 94 /min 112/76 mm[Hg] Carolina Starkey LEE ANN - LPNT - [place] [facility] [place] 13:10:28 Social History None recorded. Functional Status Question Answer Note LastModified by Organizat ion Details LastModified Time Do you use any illicit or recreational drugs? No Information not available 07/25/2023 What is your level of alcohol consumption? None Information not available 07/25/2023 Mental Status None recorded. Family History Relationship Description Onset Age of this Age Resolved Age Notes LastModified by Organization Details LastModified Time Father Disorder of thyroid gland pt. added direct ly (10/29) [email or web address] Not available 10/30/2023 15:28:01 Mother Myocardial infarction pt. added direct ly (10/29) [email or web address] Not available 10/30/2023 15:28:10 Medical History No medical history recorded. Gynecological HistoryNo gynecological history recorded. Obstetrics History GPAL:G 0 P 0 0 0 0 Past Encounters Encounter ID Performer Location Encounter Start Date Encounter Closed Date Diagnosis/Indication Diagnosis SNOMED-CT Code Diagnosis ICD10 Code Diagnosis IMO Codes Diagnosis Note [id number] LYNNE BAUER DO [facility] General Surgery [place] - [address] [facility], [place] [address] 07/25/2023 09:25:22 07/25/2023 10:33:18 Gastroesophageal reflux disease 339174392 K21.00 - discussed with the patient that she has a longstandi ng history of reflux disease that meets criteria for a complete workup including an upper GI and EGD- patient is already on PPI therapy and reports moderate improvemen t. We will add Carafate- discussed the risks (including bleeding, perforatio n, missed lesions), benefits, alternativ es to EGD with patient. She agrees to proceed with endoscopic evaluation - an upper GI will also be ordered to better identify any potential esophageal dysmotilit y and extent of reflux disease- patient verbalized understand ing and agreement of plan [id number] LNYNE BAUER DO [facility] General Surgery - [address] [place] [address], [address] [place] [address] 09/27/2023 11:23:16 09/27/2023 16:42:15 Epigastric pain 45753166 R10.13 - patient's EGD resulted with mild reflux esophagiti s however her upper GI study was unremarkab le- discussed with the patient completing an epigastric workup to rule out gallbladde r pathology including right upper quadrant ultrasound and if negative then HIDA scan- if these are also normal discussed having patient follow up with the forgot surgeon to discuss anti-reflu x procedures options- patient verbalized understand ing and agreement with plan [id number] Kimberley Diaz M.D [facility] - [address] [place] [address], [address] KADEN Devlin, [place] [address] 10/31/2023 14:03:52 10/31/2023 14:45:19 Right upper quadrant pain 662306514 R10.11 Gastroesop hageal reflux disease 748646947 K21.01 [id number] Kimberley Diaz M.D [facility] - [address] [place] [address], [address] KADEN Devlin, [place] [address] 01/09/2024 13:04:02 01/09/2024 13:40:51 Chronic cholecystitis 69983796 K81.1 [id number] Kimberley Diaz M.D [facility] - [address] [place] [address], [address] KADEN R, [place] [address] 03/28/2024 09:44:20 03/28/2024 10:03:13 Postoperative visit [id number] Z48.89 [id number] Kimberley Diaz M.D [facility] - [address] [place] [address], [address] KADEN Devlin, [place] [address] 04/23/2024 11:01:30 04/23/2024 11:35:52 Infection of skin and/or subcutaneous tissue 78273426 L08.9 Hiatal her makenna with gastroesophageal reflux 809908170 K44.9 K21.00 Health Concerns Section Related Observation LastModified by Organization Detai ls LastModified Time None Recorded Concern Status LastModified by Organization Details LastModified Time None Recorded Advance Directives Directive None Recorded Payers Insurance Date Sequence Insurance Name Policy Number Policy [place] Covered Member ID [place] Member ID Guarantor Name 05/04/2024 1 [facility] (MEDICAID HMO) Contreras Cedillo [id number] Contreras Cedillo Notes Date Note Type Note Provider Name and Address Organization Details Recorded Time 4 text/html ROS as noted in the HPI 28-year-old female presents for evaluation status post EGD and upper GI. Patient states she is having some improvement in symptoms with Carafate. Patient's EGD was largely without significant findings except for some mild esophageal reflux. Patient's upper GI was normal. Patient is still having postprandial epigastric pain. LYNNE BAUER DO [address] [place] [address], [address], [address], [facility] 09/27/2023 21:11:50 4 text/html 28-year-old female who presents for evaluation of abdominal pain and reflux. Patient states that she has been suffering for the pain for several years however it has progressively worsened and now appears to be constant. She is also complaining of severe reflux barely controlled with medications. She denies any hematemesis. She states that her abdominal pain is in the right upper quadrant and travels to her back. She has nausea when the pain is most severe. All labs, imaging studies and medical records were reviewed interpreted personally. She has had an ultrasound of her gallbladder which did not demonstrate any abnormality. She has had an EGD which demonstrated a hiatal hernia and reflux. upper GI performed at an outside institution per patient she was told it was normal those records are not available. All questions answered in details Kimberley Diaz M.D [address] [place] [address], [address], [place], [address], [facility] & [place] 11/16/2023 13:37:29 4 text/html 28-year-old female who presents for evaluation of abdominal pain and reflux. Patient states that she has been suffering for the pain for several years however it has progressively worsened and now appears to be constant. She is also complaining of severe reflux barely controlled with medications. She denies any hematemesis. She states that her abdominal pain is in the right upper quadrant and travels to her back. She has nausea when the pain is most severe. All labs, imaging studies and medical records were reviewed interpreted personally. She has had an ultrasound of her gallbladder which did not demonstrate any abnormality. She has had an EGD which demonstrated a hiatal hernia and reflux. upper GI performed at an outside institution per patient she was told it was normal those records are not available. Since her last visit patient underwent a HIDA scan with CCK which reproduced all of her symptoms and final diagnosis was biliary dyskinesia with chronic cholecystitis. All questions answered in details Kimberley Diaz M.D [address] [facility], [address], [place], [address], [facility] & [place] 01/14/2024 09:03:51 5 text/html PO visit #1 status post laparoscopic cholecystectomyPatient is tolerating regular diet.Patient denies nausea vomiting diarrhea constipation fever and chills.Intraoperative findings and Pathology reviewed with patient in details - chronic cholecystitis.All questions answered in details. Kimberley Diaz M.D [address] [facility], [address], [place], [address], [facility] & [place] 04/02/2024 08:53:19 5 text/html 28-year-old female who returns complaining of drainage of the umbilical incision. Patient states that a little area opens up and then she was pus that comes out that it scabs over then it does it again a few days later. Patient has documented with pictures the events. I agree with her that she must have a slight infection at the incision and may require a short course of antibiotics. Patient also states that her reflux has returned despite taking her Protonix. Patient states that it has been quite severe recently. She did have an EGD in the past which demonstrated a hiatal hernia and reflux esophagitis. However she had an incomplete upper GI performed at an outside institution. All labs, imaging studies and medical records were reviewed interpreted personally. All questions answered in details Kimberley Diaz M.D [address], [address], [place], [address], [facility] & [place] 04/23/2024 17:52:44 OBGyn Episode No OBEpisode recorded.
--- OUTSIDE RECORDS SUMMARY | 2025-01-26 19:30 | XMS_ITS | Data Portability ---
Author Organization [facility] [employer] [place] - MSE Address [address] [place] [address] Assessment No assessment recorded. Plan of Treatment [...] available Lab urinalysi s, dipstick 2024 025 [email or web address] [facility], [address] [place] [address], [address], 01/14/2025 09:16:19 CBC w/ auto diff 2024 025 TRIVOLI [facility]), [address] [place] [address], [address], 01/15/2025 08:13:55 RPR (rapid plasma reagin), serum 2024 025 [facility]I [facility], [address] [place], [address], 01/15/2025 08:13:56 glucose tolerance test, post-50G, 1-hour 2024 025 [facility] [address] [place], [address], 01/15/2025 08:13:56 urinalysi s, dipstick 2024 025 [facility], [address] [place], [address], 12/17/2024 09:51:39 urinalysi s, dipstick 2024 025 [email or web address] [facility], [address] [place], [address], 10/22/2024 09:46:39 urinalysi s, dipstick 2024 025 [email or web address] [facility], [address] [place], [address], 09/17/2024 13:53:59 unlisted lab - inherites t(R) core panel 2024 025 [facility]), [facility] [place], [address], 10/03/2024 13:07:37 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 Procedures None recorded. Surgeries None recorded. Imaging US, obstetric , follow-up 2024 025 [email or web address] [facility], [address] [place], [address], 01/14/2025 10:16:01 US, obstetric 2024 025 [facility], [address] [facility], [place], [address], 10/22/2024 11:15:59 Medication Orders None recorded. Patient TargetsNo targets recorded. Patient Instructions Encounter Date Encounter Id Patient Instructions Last Modified By Organization Details Last Modified Time 01/14/2025 [id number] counting your baby's kicks: care instructions [email or web address] Not available 01/14/2025 09:16:19 preeclampsia education [email or web address] Not available 01/14/2025 09:16:20 labor precautions Not available 01/14/2025 09:16:20 Reason for Referral None Reported. Results Created Date Observation Date Name Description Value Unit Range Abnormal Flag Note LastModifiedBy Organization Detail LastModifiedTime 08/21/1908/24/2024 TOXAS SURE FLEX 19, UR summary report [...] ===== ===== === Not Available [facility] ([facility]) [address] [place], [address], 08/24/2024 20:11:18 08/21/19 25 08/24/2024 TOXAS SURE FLEX 19, UR pdf . Not Available [facility] ([facility]) [address] [place], [address], 08/24/2024 20:11:18 08/21/19 25 08/24/2024 TOXAS SURE FLEX 19, UR creatinine 60 mg/dL >=20 REFER ENCE RANGE : Ref Range >=20 Not Available [facility] ([facility]) [address] [place], [address], 08/24/2024 20:11:18 08/21/19 25 08/24/2024 TOXAS SURE FLEX 19, UR amphetamines ia Negati ve NG/mL cutoff :300 Not Available [facility] ([facility]) [address] [place], [address], 08/24/2024 20:11:18 08/21/19 25 08/24/2024 TOXAS SURE FLEX 19, UR benzodiazepi evie Negati ve Not Available [facility] ([facility]) [address] [place], [address], 08/24/2024 20:11:18 08/21/19 25 08/24/2024 TOXAS SURE FLEX 19, UR diazepam Not Detect ed NG/mg _crea t Not Available [facility] ([facility]) [address] [facility], [place], [address], 08/24/2024 20:11:18 08/21/19 25 08/24/2024 TOXAS SURE FLEX 19, UR desmethyldia zepam Not Detect ed NG/mg _crea t Not Available [facility] ([facility]) [address] [facility], [place], [address], 08/24/2024 20:11:18 08/21/19 25 08/24/2024 TOXAS SURE FLEX 19, UR oxazepam Not Detect ed NG/mg _crea t Not Available [facility] ([facility]) [address] [facility], [place], [address], 08/24/2024 20:11:18 08/21/19 25 08/24/2024 TOXAS SURE [...] Oxaze ervin: None Not Available [facility] ([facility]) [address] [place] [address], [address], 08/24/2024 20:11:18 08/21/19 25 08/24/2024 TOXAS SURE FLEX 19, UR alprazolam Not Detect ed NG/mg _crea t Not Available [facility] ([facility]) [address] [place], [address], 08/24/2024 20:11:18 08/21/19 25 08/24/2024 TOXAS SURE FLEX 19, UR alpha-hydrox yalprazolam Not Detect ed NG/mg _crea t Not Available [facility] ([facility]) [address] [place], [address], 08/24/2024 20:11:18 08/21/19 25 08/24/2024 TOXAS SURE FLEX 19, UR desalkylflur azepam Not Detect ed NG/mg _crea t Not Available [facility] ([facility]) [address] [place], [address], 08/24/2024 20:11:18 08/21/19 25 08/24/2024 TOXAS SURE FLEX 19, UR lorazepam Not Detect ed NG/mg _crea t Not Available [facility] ([facility]) [address] [place], [address], 08/24/2024 20:11:18 08/21/19 25 08/24/2024 TOXAS SURE FLEX 19, UR alpha-hydrox ytriazolam Not Detect ed NG/mg _crea t Not Available [facility] ([facility]) [address] [place], [address], 08/24/2024 20:11:18 08/21/19 25 08/24/2024 TOXAS SURE FLEX 19, UR clonazepam Not Detect ed NG/mg _crea t Not Available [facility] ([facility]) [address] [place], [address], 08/24/2024 20:11:18 08/21/19 25 08/24/2024 TOXAS SURE FLEX 19, UR 7-aminoclona zepam Not Detect ed NG/mg _crea t Not Available [facility] ([facility]) [address] [place], [address], 08/24/2024 20:11:18 08/21/19 25 08/24/2024 TOXAS SURE FLEX 19, UR midazolam Not Detect ed NG/mg _crea t Not Available [facility] ([facility]) [address] [place], [address], 08/24/2024 20:11:18 08/21/19 25 08/24/2024 TOXAS SURE FLEX 19, UR alpha-hydrox ymidazolam Not Detect ed NG/mg _crea t Not Available [facility] ([facility]) [address] [place], [address], 08/24/2024 20:11:18 08/21/19 25 08/24/2024 TOXAS SURE FLEX 19, UR flunitrazepa m Not Detect ed NG/mg _crea t Not Available [facility] ([facility]) [address] [place], [address], 08/24/2024 20:11:18 08/21/19 25 08/24/2024 TOXAS SURE FLEX 19, UR desmethylflu nitrazepam Not Detect ed NG/mg _crea t Not Available [facility] ([facility]) [address] [place], [address], 08/24/2024 20:11:18 08/21/19 25 08/24/2024 TOXAS SURE FLEX 19, UR cocaine metabolite ia Negati ve NG/mL cutoff :150 Not Available [facility] ([facility]) [address] [place], [address], 08/24/2024 20:11:18 08/21/19 25 08/24/2024 TOXAS SURE FLEX 19, UR ethanol biomarkers ia Negati ve NG/mL cutoff :500 Not Available [facility] ([facility]) [address] [place], [address], 08/24/2024 20:11:18 08/21/19 25 08/24/2024 TOXAS SURE FLEX 19, UR cannabinoids ia Negati ve NG/mL cutoff :20 Not Available [facility] ([facility]) [address] [place], [address], 08/24/2024 20:11:18 08/21/19 25 08/24/2024 TOXAS SURE FLEX 19, UR 6-acetylmorp viola ia Negati ve NG/mL cutoff :10 Not Available [facility] ([facility]) [address] [place], [address], 08/24/2024 20:11:18 08/21/19 25 08/24/2024 TOXAS SURE FLEX 19, UR opiate class ia Negati ve NG/mL cutoff :100 Not Available [facility] ([facility]) [address] [place], [address], 08/24/2024 20:11:18 08/21/19 25 08/24/2024 TOXAS SURE FLEX 19, UR oxycodone class ia Negati ve NG/mL cutoff :100 Not Available [facility] ([facility]) [address] [place], [address], 08/24/2024 20:11:18 08/21/19 25 08/24/2024 TOXAS SURE FLEX 19, UR methadone ia Negati ve NG/mL cutoff :100 Not Available [facility] ([facility]) [address] [place], [address], 08/24/2024 20:11:18 08/21/19 25 08/24/2024 TOXAS SURE FLEX 19, UR methadone mtb ia Negati ve NG/mL cutoff :100 Not Available [facility] ([facility]) [address] [place], [address], 08/24/2024 20:11:18 08/21/19 25 08/24/2024 TOXAS SURE FLEX 19, UR buprenorphin e ia Negati ve NG/mL cutoff :5.0 Not Available [facility] ([facility]) [address] [place], [address], 08/24/2024 20:11:18 08/21/19 25 08/24/2024 TOXAS SURE FLEX 19, UR fentanyl ia Negati ve NG/mL cutoff :2.0 Not Available [facility] ([facility]) [address] [place], [address], 08/24/2024 20:11:18 08/21/19 25 08/24/2024 TOXAS SURE FLEX 19, UR tapentadol ia Negati ve NG/mL cutoff :200 Not Available [facility] ([facility]) [address] [place], [address], 08/24/2024 20:11:18 08/21/19 25 08/24/2024 TOXAS SURE FLEX 19, UR propoxyphene ia Negati ve NG/mL cutoff :300 Not Available [facility] ([facility]) [address] [place] [address], [address], 08/24/2024 20:11:18 08/21/19 25 08/24/2024 TOXAS SURE FLEX 19, UR tramadol ia Negati ve NG/mL cutoff :200 Not Available [facility] ([facility]) [address] [place], [address], 08/24/2024 20:11:18 08/21/19 25 08/24/2024 TOXAS SURE FLEX 19, UR methylphenid ate ia Negati ve NG/mL cutoff :100 Not Available [facility] ([facility] [place] [facility]) [address] [place] [address], [address], 08/24/2024 20:11:18 08/21/19 25 08/24/2024 TOXAS SURE FLEX 19, UR barbiturates ia Negati ve NG/mL cutoff :200 Not Available [facility] ([facility]) [address] [place], [address], 08/24/2024 20:11:18 08/21/19 25 08/24/2024 TOXAS SURE FLEX 19, UR phencyclidin e ia Negati ve NG/mL cutoff :25 Not Available [facility] ([facility]) [address] [place], [address], 08/24/2024 20:11:18 08/21/19 25 08/24/2024 TOXAS SURE FLEX 19, UR gabapentin ia Negati ve ug/mL cutoff :1.0 Not Available [facility] ([facility]) [address] [place], [address], 08/24/2024 20:11:18 08/21/19 25 08/24/2024 TOXAS SURE FLEX 19, UR anticonvulsa nts Negati ve Not Available [facility] ([facility]) [address] [place], [address], 08/24/2024 20:11:18 08/21/19 25 08/24/2024 TOXAS SURE FLEX 19, UR pregabalin Not Detect ed Not Available [facility] ([facility]) [address] [place], [address], 08/24/2024 20:11:18 08/21/19 25 08/24/2024 TOXAS SURE FLEX 19, UR carisoprodol ia Negati ve NG/mL cutoff :100 Not Available [facility] ([facility]) [address] [place], [address], 08/24/2024 20:11:18 08/21/19 25 08/21/2024 PREGN SARAH, INITI AL SCREE N HBsAg screen Negati ve negati ve Not Available [facility] ([facility]) [address] [place], [address], 08/24/2024 20:11:19 08/21/19 25 08/21/2024 PREGN SARAH, INITI AL SCREE N HCV Ab Non Reacti ve non reacti ve Not Available [facility] ([facility]) [address] [place], [address], 08/24/2024 20:11:19 08/21/19 25 08/21/2024 PREGN SARAH, INITI AL SCREE N interpretati on: Commen t Not infec isabell with HCV unles s early or acute infec tion is suspe cted (whic h may be delay ed in an immun ocomp romis ed indiv idual ), or other evide nce exist s to indic ate HCV infec tion. Not Available [facility] ([facility]) [address] [facility], [place], [address], 08/24/2024 20:11:19 08/21/19 25 08/21/2024 PREGN SARAH, INITI AL SCREE N RPR Non Reacti ve non reacti ve Not Available [facility] ([facility]) [address] [place], [address], 08/24/2024 20:11:19 08/21/19 25 08/21/2024 PREGN SARAH, INITI AL SCREE N rubella antibodies, IgG 8.30 index immune >0.99 Non-i mmune <0.90 Equiv ocal 0.90 - 0.99 Immun e >0.99 Not Available [facility] ([facility]) [address] [place], [address], 08/24/2024 20:11:19 08/21/19 25 08/21/2024 PREGN SARAH, INITI AL SCREE N ABO grouping AB Not Available [facility] ([facility]) [address] [place], [address], 08/24/2024 20:11:19 08/21/19 25 08/21/2024 PREGN SARAH, INITI AL SCREE N Rh factor Positi ve Pleas e note: Prior recor ds for this patie nt's ABO / Rh type are not avail able for addit ional verif icati on. Not Available [facility] ([facility]) [address] [facility], [place], [address], 08/24/2024 20:11:19 08/21/19 25 08/21/2024 PREGN SARAH, INITI AL SCREE N antibody screen Negati ve negati ve Not Available [facility] ([facility]) [address] [facility], [place], [address], 08/24/2024 20:11:19 08/21/19 25 08/21/2024 PREGN SARAH, INITI AL SCREE N HIV Ab/P24 Ag screen Non Reacti ve non reacti ve HIV-1 /HIV- 2 antib odies and HIV-1 p24 antig en were NOT detec isabell. There is no labor atory evide nce of HIV infec tion. HIV Negat kurt Not Available [facility] ([facility]) [address] [facility], [place], [address], 08/24/2024 20:11:19 08/21/19 25 08/21/2024 PREGN SARAH, INITI AL SCREE N WBC 9.9 x10e3 /uL 3.4-10 .8 normal Not Available [facility] ([facility]) [address] [place], [address], 08/24/2024 20:11:19 08/21/19 25 08/21/2024 PREGN SARAH, INITI AL SCREE N RBC 4.07 x10e6 /uL 3.77-5 .28 normal Not Available [facility] ([facility]) [address] [place], [address], 08/24/2024 20:11:19 08/21/19 25 08/21/2024 PREGN SARAH, INITI AL SCREE N hemoglobin 12.1 g/dL 11.1-1 5.9 normal Not Available [facility] ([facility]) [address] [place], [address], 08/24/2024 20:11:19 08/21/19 25 08/21/2024 PREGN SARAH, INITI AL SCREE N hematocrit 38.2 % 34.0-4 6.6 normal Not Available [facility] ([facility]) [address] [place], [address], 08/24/2024 20:11:19 08/21/19 25 08/21/2024 PREGN SARAH, INITI AL SCREE N MCV 94 fL 79-97 normal Not Available [facility] ([facility]) [address] [place], [address], 08/24/2024 20:11:19 08/21/19 25 08/21/2024 PREGN SARAH, INITI AL SCREE N MCH 29.7 pg 26.6-3 3.0 normal Not Available [facility] ([facility]) [address] [place], [address], 08/24/2024 20:11:19 08/21/19 25 08/21/2024 PREGN SARAH, INITI AL SCREE N MCHC 31.7 g/dL 31.5-3 5.7 normal Not Available [facility] ([facility]) [address] [place], [address], 08/24/2024 20:11:19 08/21/19 25 08/21/2024 PREGN SARAH, INITI AL SCREE N RDW 12.9 % 11.7-1 5.4 Not Available [facility] ([facility]) [address] [place], [address], 08/24/2024 20:11:19 08/21/19 25 08/21/2024 PREGN SARAH, INITI AL SCREE N platelets 335 x10e3 /uL 150-45 0 normal Not Available [facility] ([facility]) [address] [place], [address], 08/24/2024 20:11:19 08/21/19 25 08/21/2024 PREGN SARAH, INITI AL SCREE N neutrophils 68 % not estab. normal Not Available [facility] ([facility]) [address] [place], [address], 08/24/2024 20:11:19 08/21/19 25 08/21/2024 PREGN SARAH, INITI AL SCREE N lymphs 22 % not estab. normal Not Available [facility] ([facility]) [address] [facility], [place], [address], 08/24/2024 20:11:19 08/21/19 25 08/21/2024 PREGN SARAH, INITI AL SCREE N monocytes 7 % not estab. normal Not Available [facility] ([facility]) [address] [place], [address], 08/24/2024 20:11:19 08/21/19 25 08/21/2024 PREGN SARAH, INITI AL SCREE N eos 2 % not estab. normal Not Available [facility] ([facility]) [address] [place], [address], 08/24/2024 20:11:19 08/21/19 25 08/21/2024 PREGN SARAH, INITI AL SCREE N basos 1 % not estab. normal Not Available [facility] ([facility]) [address] [place], [address], 08/24/2024 20:11:19 08/21/19 25 08/21/2024 PREGN SARAH, INITI AL SCREE N immature cells SUP[employer] BUSINESS ANALYST Not Available [facility] ([facility]) [address] [place], [address], 08/24/2024 20:11:19 08/21/19 25 08/21/2024 PREGN SARAH, INITI AL SCREE N neutrophils (absolute) 6.8 x10e3 /uL 1.4-7. 0 normal Not Available [facility] ([facility]) [address] [place], [address], 08/24/2024 20:11:19 08/21/19 25 08/21/2024 PREGN SARAH, INITI AL SCREE N lymphs (absolute) 2.2 x10e3 /uL 0.7-3. 1 normal Not Available [facility] ([facility]) [address] [facility], [place], [address], 08/24/2024 20:11:19 08/21/19 25 08/21/2024 PREGN SARAH, INITI AL SCREE N monocytes(ab solute) 0.7 x10e3 /uL 0.1-0. 9 normal Not Available [facility] ([facility]) [address] [place], [address], 08/24/2024 20:11:19 08/21/19 25 08/21/2024 PREGN SARAH, INITI AL SCREE N eos (absolute) 0.2 x10e3 /uL 0.0-0. 4 normal Not Available [facility] ([facility]) [address] [place], [address], 08/24/2024 20:11:19 08/21/19 25 08/21/2024 PREGN SARAH, INITI AL SCREE N baso (absolute) 0.1 x10e3 /uL 0.0-0. 2 normal Not Available [facility] ([facility]) [address] [place], [address], 08/24/2024 20:11:19 08/21/19 25 08/21/2024 PREGN SARAH, INITI AL SCREE N immature granulocytes 0 % not estab. Not Available [facility] ([facility]) [address] [place], [address], 08/24/2024 20:11:19 08/21/19 25 08/21/2024 PREGN SARAH, INITI AL SCREE N immature grans (abs) 0.0 x10e3 /uL 0.0-0. 1 Not Available [facility] ([facility]) [address] [facility], [place], [address], 08/24/2024 20:11:19 08/21/19 25 08/21/2024 PREGN SARAH, INITI AL SCREE N NRBC [employer] BUSINESS ANALYST Not Available [facility] ([facility]) [address] [facility], [place], [address], 08/24/2024 20:11:19 08/21/19 25 08/21/2024 PREGN SARAH, INITI AL SCREE N hematology comments: [employer] BUSINESS ANALYST Not Available [facility] ([facility]) [address] [facility], [place], [address], 08/24/2024 20:11:19 08/21/19 25 08/21/2024 PREGN SARAH, INITI AL SCREE N specific gravity 1.011 1.005- 1.030 normal Not Available [facility] ([facility]) [address] [facility], [place], [address], 08/24/2024 20:11:19 08/21/19 25 08/21/2024 PREGN SARAH, INITI AL SCREE N pH 6.5 5.0-7. 5 normal Not Available [facility] ([facility]) [address] [facility], [place], [address], 08/24/2024 20:11:19 08/21/19 25 08/21/2024 PREGN SARAH, INITI AL SCREE N urine-color Yellow yellow Not Available [facility] ([facility]) [address] [facility], [place], [address], 08/24/2024 20:11:19 08/21/19 25 08/21/2024 PREGN SARAH, INITI AL SCREE N appearance Clear clear Not Available [facility] ([facility]) [address] [facility], [place], [address], 08/24/2024 20:11:19 08/21/19 25 08/21/2024 PREGN SARAH, INITI AL SCREE N WBC esterase 1+ negati ve abnormal Not Available [facility] ([facility]) [address] [place], [address], 08/24/2024 20:11:19 08/21/19 25 08/21/2024 PREGN SARAH, INITI AL SCREE N protein Negati ve negati ve/tra ce Not Available [facility] ([facility]) [address] [place], [address], 08/24/2024 20:11:19 08/21/19 25 08/21/2024 PREGN SARAH, INITI AL SCREE N glucose Negati ve negati ve Not Available [facility] ([facility]) [address] [place], [address], 08/24/2024 20:11:19 08/21/19 25 08/21/2024 PREGN SARAH, INITI AL SCREE N ketones Negati ve negati ve Not Available [facility] ([facility]) [address] [place], [address], 08/24/2024 20:11:19 08/21/19 25 08/21/2024 PREGN SARAH, INITI AL SCREE N occult blood Negati ve negati ve Not Available [facility] ([facility]) [address] [place], [address], 08/24/2024 20:11:19 08/21/19 25 08/21/2024 PREGN SARAH, INITI AL SCREE N bilirubin Negati ve negati ve Not Available [facility] ([facility]) [address] [place], [address], 08/24/2024 20:11:19 08/21/19 25 08/21/2024 PREGN SARAH, INITI AL SCREE N urobilinogen ,semi-qn 0.2 mg/dL 0.2-1. 0 normal Not Available [facility] ([facility]) [address] [place], [address], 08/24/2024 20:11:19 08/21/19 25 08/21/2024 PREGN SARAH, INITI AL SCREE N nitrite, urine Negati ve negati ve Not Available [facility] ([facility]) [address] [place], [address], 08/24/2024 20:11:19 08/21/19 25 08/21/2024 PREGN SARAH, INITI AL SCREE N microscopic examination See below: Micro scopi c was indic ated and was perfo rmed. Not Available [facility] ([facility]) [address] [place], [address], 08/24/2024 20:11:19 08/21/19 25 08/21/2024 PREGN SARAH, INITI AL SCREE N WBC 0-5 /hpf 0 - 5 Not Available [facility] ([facility]) [address] [place], [address], 08/24/2024 20:11:19 08/21/19 25 08/21/2024 PREGN SARAH, INITI AL SCREE N RBC 0-2 /hpf 0 - 2 Not Available [facility] ([facility]) [address] [place], [address], 08/24/2024 20:11:19 08/21/19 25 08/21/2024 PREGN SARAH, INITI AL SCREE N epithelial cells (non renal) 0-10 /hpf 0 - 10 Not Available [facility] ([facility]) [address] [place], [address], 08/24/2024 20:11:19 08/21/19 25 08/21/2024 PREGN SARAH, INITI AL SCREE N epithelial cells (renal) [employer] BUSINESS ANALYST Not Available [facility] ([facility]) [address] [place], [address], 08/24/2024 20:11:19 08/21/19 25 08/21/2024 PREGN SARAH, INITI AL SCREE N casts None seen /lpf none seen Not Available [facility] ([facility]) [address] [facility], [place], [address], 08/24/2024 20:11:19 08/21/19 25 08/21/2024 PREGN SARAH, INITI AL SCREE N cast type [employer] BUSINESS ANALYST Not Available [facility] ([facility]) [address] [facility], [place], [address], 08/24/2024 20:11:19 08/21/19 25 08/21/2024 PREGN SARAH, INITI AL SCREE N crystals [employer] BUSINESS ANALYST Not Available [facility] ([facility]) [address] [facility], [place], [address], 08/24/2024 20:11:19 08/21/19 25 08/21/2024 PREGN SARAH, INITI AL SCREE N crystal type SUP[employer] BUSINESS ANALYST Not Available [facility] ([facility]) [address] [facility], [place], [address], 08/24/2024 20:11:19 08/21/19 25 08/21/2024 PREGN SARAH, INITI AL SCREE N mucus threads [employer] BUSINESS ANALYST Not Available [facility] ([facility]) [address] [facility], [place], [address], 08/24/2024 20:11:19 08/21/19 25 08/21/2024 PREGN SARAH, INITI AL SCREE N bacteria Few none seen/f ew Not Available [facility] ([facility]) [address] [facility], [place], [address], 08/24/2024 20:11:19 08/21/19 25 08/21/2024 PREGN SARAH, INITI AL SCREE N yeast SUP[employer] BUSINESS ANALYST Not Available [facility] ([facility]) [address] [facility], [place], [address], 08/24/2024 20:11:19 08/21/19 25 08/21/2024 PREGN SARAH, INITI AL SCREE N trichomonas SUPPLY CHAIN BUSINESS ANALYST Not Available [facility] ([facility]) [address] [facility], [place], [address], 08/24/2024 20:11:19 08/21/19 25 08/21/2024 PREGN SARAH, INITI AL SCREE N comment SUPPLY CHAIN BUSINESS ANALYST Not Available [facility] ([facility]) [address] [facility], [place], [address], 08/24/2024 20:11:19 08/21/19 25 08/21/2024 PREGN SARAH, INITI AL SCREE N microscopic examination SUPPLY CHAIN BUSINESS ANALYST Not Available [facility] ([facility]) [address] [facility], [place], [address], 08/24/2024 20:11:19 08/21/19 25 08/22/2024 PREGN SARAH, INITI AL SCREE N chlamydia trachomatis, SHARDA Negati ve negati ve Not Available [facility] ([facility]) [address] [facility], [place], [address], 08/24/2024 20:11:19 08/21/19 25 08/22/2024 PREGN SARAH, INITI AL SCREE N neisseria gonorrhoeae, SHARDA Negati ve negati ve Not Available [facility] ([facility]) [address] [facility], [place], [address], 08/24/2024 20:11:19 08/21/19 25 08/22/2024 PREGN SARAH, INITI AL SCREE N urine culture,pren atal, w/gbs Final report Not Available [facility] ([facility]) [address] [facility], [place], [address], 08/24/2024 20:11:19 08/21/19 25 08/22/2024 PREGN SARAH, INITI AL SCREE N result 1 No growth Not Available [facility] ([facility]) [address] [facility], [place], [address], 08/24/2024 20:11:19 08/21/19 25 08/20/2024 urina lysis , dipst ick Leukocytes Negati ve Not Available [address], [address], 08/20/2024 15:46:47 08/21/19 25 08/20/2024 urina lysis , dipst ick Nitrite negati ve Not Available [address], [address], 08/20/2024 15:46:47 08/21/19 25 08/20/2024 urina lysis , dipst ick Urobilinogen .2 Not Available [address], [address], 08/20/2024 15:46:47 08/21/19 25 08/20/2024 urina lysis , dipst ick Protein Negati ve Not Available [address], [address], 08/20/2024 15:46:47 08/21/19 25 08/20/2024 urina lysis , dipst ick pH 6.0 Not Available [address], [address], 08/20/2024 15:46:47 08/21/19 25 08/20/2024 urina lysis , dipst ick Blood Negati ve Not Available [address], [address], 08/20/2024 15:46:47 08/21/19 25 08/20/2024 urina lysis , dipst ick Specific [place] 1.010 Not Available [address] [place], [address], 08/20/2024 15:46:47 08/21/19 25 08/20/2024 urina lysis , dipst ick Ketone Negati ve Not Available [facility] [address] [place], [address], 08/20/2024 15:46:47 08/21/19 25 08/20/2024 urina lysis , dipst ick Bilirubin Negati ve Not Available [facility] [address] [facility] [place], [address], 08/20/2024 15:46:47 08/21/19 25 08/20/2024 urina lysis , dipst ick Glucose Negati ve Not Available [facility] [address] [place], [address], 08/20/2024 15:46:47 08/21/19 25 08/20/2024 urina lysis , dipst ick Appearance Clear Not Available [facility] [address] [place], [address], 08/20/2024 15:46:47 08/21/19 25 08/20/2024 urina lysis , dipst ick Color Yellow Not Available [facility] [address] [place], [address], 08/20/2024 15:46:47 09/18/19 25 09/24/2024 MATER NIT21 PLUS CORE+ SCA gestation Single ton Not Available [facility] ([facility]) [address] [facility], [place], [address], 10/03/2024 13:07:36 09/18/19 25 09/24/2024 MATER NIT21 PLUS CORE+ SCA fraction 13% Not Available [facility] ([facility]) [address] [facility], [place], [address], 10/03/2024 13:07:36 09/18/19 25 09/24/2024 MATER NIT21 PLUS CORE+ SCA gestational age > or = 9W: Yes Not Available [facility] ([facility]) [address] [facility], [place], [address], 10/03/2024 13:07:36 09/18/19 25 09/24/2024 MATER NIT21 PLUS CORE+ SCA test result Negati ve Not Available [facility] (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 Clini rebecca corre latio n is sugtasneem gilmored. Not Available [facility] ([facility]) [address] [facility], [place], [address], 10/03/2024 13:07:36 09/18/19 25 09/24/2024 MATER NIT21 PLUS CORE+ SCA approved by Chelsie roldan MD, PhD, [facility], Sequ nom Labor atori es Not Available [facility] ([facility]) [address] [facility], [place], [address], 10/03/2024 13:07:36 09/18/19 25 09/24/2024 MATER NIT21 PLUS CORE+ SCA trisomy 21 (down syndrome) Negati ve Not Available [facility] ([facility]) [address] [place], [address], 10/03/2024 13:07:36 09/18/19 25 09/24/2024 MATER NIT21 PLUS CORE+ SCA trisomy 18 (saunders syndrome) Negati ve Not Available [facility] ([facility]) [address] [place], [address], 10/03/2024 13:07:36 09/18/19 25 09/24/2024 MATER NIT21 PLUS CORE+ SCA trisomy 13 (patau syndrome) Negati ve Not Available [facility] ([facility]) [address] [facility], [place], [address], 10/03/2024 13:07:36 09/18/19 25 09/24/2024 MATER NIT21 PLUS CORE+ SCA sex Commen t Consi stent with Femal e Not Available [facility] (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) [address] [facility], [place], [address], 10/03/2024 13:07:36 09/18/19 25 09/24/2024 MATER NIT21 PLUS CORE+ SCA xxy (klinefelter syndrome) Not Detect ed Not Available [facility] (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) [address] [facility], [place], [address], 10/03/2024 13:07:36 09/18/19 25 09/24/2024 MATER NIT21 [...] is detec isabell. Not Available [facility] ([facility]) [address] [facility], [place], [address], 10/03/2024 13:07:36 09/18/19 25 09/24/2024 MATER NIT21 PLUS CORE+ SCA positive predictive value N/A Not Available [facility] ([facility]) [address] [facility], [place], [address], 10/03/2024 13:07:36 09/18/19 25 09/24/2024 MATER NIT21 [...] been valid ated. Not Available [facility] ([facility]) [address] [facility], [place], [address], 10/03/2024 13:07:36 09/18/19 25 09/24/2024 MATER NIT21 PLUS CORE+ SCA test method Commen t Circu latin g cell- free DNA was purif ied from the plasm a compo nent of mater nal blood . The extra cted DNA was then conve rted into a [employer] DNA ashley ry for aneup loidy maik [...] ng inclu zuleima delet ions in selec iasbell regio ns (22q, 15q, 11q, 8q, 5p, 4p, 1p) and triso my of chrom osome s 16 and 22. Not Available [facility] ([facility]) [address] [facility], [place], [address], 10/03/2024 13:07:36 09/18/19 25 09/24/2024 MATER NIT21 [...] loidy .[1-4 ] Not Available [facility] ([facility]) [address] [facility], [place], [address], 10/03/2024 13:07:36 09/18/19 25 09/24/2024 MATER NIT21 PLUS CORE+ SCA performance characterist ics Note ----- ----- ----- ----- ----- ----- ----- ----- ----- ----- ----- ---- ! Sex ! Accur acy: 99.4% ! !---- ----- ----- ----- ----- ----- ----- ----- ----- ----- ----- ---! ! Regio n (asso teddy bedolla syndr ome) ! Est. Sens# ! Est. Spec ! !---- ----- ----- ----- ----- ----- ----- ----- ----- ----- ----- ---! ! Jadon my 21 (Down Syndr ome) ! 99.1% ! 99.9% ! !---- ----- ----- ----- ----- ----- ----- ----- ----- ----- ----- ---! ! Jadon my 18 (Edwa rds Syndr ome) ! >99.9 % ! 99.6% ! !---- ----- ----- ----- ----- ----- ----- ----- ----- ----- ----- ---! ! Jadon my 13 (Pata u Syndr ome) ! 91.7% ! 99.7% ! !---- ----- ----- ----- ----- ----- ----- ----- ----- ----- ----- ---! ! Sex Chrom osome Aneup daniel es## ! 96.2% ! 99.7% ! !---- ----- ----- ----- ----- ----- ----- ----- ----- ----- ----- ---! * As repor isabell in ISCA datab ase nstd3 7 [http s://w tracie.nc bi.nl m.nih .gov/ dbvar /stud ies/n std37 [...] gesta tion only. Not Available [facility] ([facility]) [address], [place], [address], 10/03/2024 13:07:36 09/18/19 25 09/24/2024 MATER NIT21 [...] be assoc iated with benig n or latoniaig nant mater nal neopl asms. These tests [...] and Fragm in(R) ). Not Available [facility] ([facility]) [address] [facility], [place], [address], 10/03/2024 13:07:36 09/18/19 25 09/24/2024 MATER NIT21 PLUS CORE+ SCA note [employer]sie [employer] is a subsi diary of Labor atory Corpo ratio n of Jacquelyn clinton Holdi ngs, using the brand [employer]. This test was devel oped and its perfo rmanc e emma cteri stics deter mined by [employer]. It has not been clear ed or appro sriram by the Food and Drug Admin istra tion. This labor atory is certi fied under the Clini rebecca Labor atory Impro vemen t Amend ments (CLIA ) as quali fied to perfo rm high compl exity clini rebecca labor atory testi ng and accre dited by the Lana boateng of Ameri can Patho logis ts (CAP) . If there is futur e clini rebecca need for addin g Mater niT GENOM E testi ng, this speci men will be avail able until term. [facility] sampl es will not be retai vonda beyon d 60 days. [facility] patie nts will have to send a new sampl e for re-se quenc ing ([facility] Test Code: 29305 4). Not Available [facility] ([facility]) [address] [facility], [place], [address], 10/03/2024 13:07:36 09/18/19 25 09/24/2024 MATER NIT21 [...] 226, Dec 2019. Not Available [facility] ([facility]) [address] [facility], [place], [address], 10/03/2024 13:07:36 09/18/19 25 09/24/2024 MATER NIT21 PLUS CORE+ SCA pdf . Not Available [facility] ([facility]) [address] [facility], [place], [address], 10/03/2024 13:07:36 09/18/19 25 10/03/2024 INHER ITEST (R) CORE PANEL genes Commen t 3 genes Not Available [facility] ([facility]) [address] [facility], [place], [address], 10/03/2024 13:07:37 09/18/19 25 10/03/2024 INHER ITEST (R) CORE PANEL ethnicity Commen t Not Provi ded Not Available [facility] ([facility]) [address] [facility], [place], [address], 10/03/2024 13:07:37 09/18/19 25 10/03/2024 INHER ITEST (R) CORE PANEL specimen type Commen t Whole Blood Not Available [facility] ([facility]) [address] [facility], [place], [address], 10/03/2024 13:07:37 09/18/19 25 10/03/2024 INHER ITEST (R) CORE PANEL genetic counselor SUPPLY CHAIN BUSINESS ANALYST Not Available [facility] ([facility]) [address] [facility], [place], [address], 10/03/2024 13:07:37 09/18/19 25 10/03/2024 INHER ITEST (R) CORE PANEL indication Commen t Ana er Test / Scree lisa Not Available [facility] ([facility]) [address] [facility], [place], [address], 10/03/2024 13:07:37 09/18/19 25 10/03/2024 INHER ITEST (R) CORE PANEL result: Commen t NEGAT KURT Not Available [facility] ([facility]) [address] [facility], [place], [address], 10/03/2024 13:07:37 09/18/19 25 10/03/2024 INHER ITEST [...] isabell pregn sarah. Not Available [facility] ([facility]) [address] [facility], [place], [address], 10/03/2024 13:07:37 09/18/19 25 10/03/2024 INHER ITEST (R) CORE PANEL general comments SUPPLY CHAIN BUSINESS ANALYST Not Available [facility] ([facility]) [address] [facility], [place], [address], 10/03/2024 13:07:37 09/18/19 25 10/03/2024 INHER ITEST (R) CORE PANEL recommendati ons Commen t If the above resul t is posit kurt, marco antonio ic couns eling is recom je d to discu ss the poten tial clini rebecca and/o r repro ducti ve impli catio ns, as well as recom menda tions for testi ng famil y membe rs and, when appli cable , this indiv idual 's partn er. Marco Antonio ic couns eling servi jerrica are avail able. To acces s [facility] Marco Antonio ic Couns yaneli johnson e visit [email or web address] :[email or web address] [email or web address] om/ge netic -coun thi g or call (950) GC-CA LLS [phone]). Not Available [facility] ([facility]) [address] [facility], [place], [address], 10/03/2024 13:07:37 09/18/19 25 10/03/2024 INHER ITEST (R) CORE PANEL additional clinicalinfo rmation SUPPLY CHAIN BUSINESS ANALYST Not Available [facility] ([facility]) [address] [facility], [place], [address], 10/03/2024 13:07:37 09/18/19 25 10/03/2024 INHER ITEST (R) CORE PANEL comments Commen t This inter preta tion is based on the clini rebecca infor matio n provi ded and the curre nt under stand ing of the molec ular marco antonio ics of the disor yeni(s ) teste d. Infor matmeghann n about the disor yeni(s ) teste d is avail able at https :[email or web address] [email or web address] om. Not Available [facility] ([facility]) [address] [facility], [place], [address], 10/03/2024 13:07:37 09/18/19 25 10/03/2024 INHER ITEST (R) CORE PANEL methods/limi tations Commen t Next- gener ation Seque ncing (NGS) : Genom ic regio ns of inter est are selec isabell using the [employer] ience (R) hybri dizat ion captu re metho d and seque nced via the [employer](R ) NGS platf orm. Seque ncing reads [...] nt detec tion is perfo rmed by [employer]IAGE N [facility] Genom [employer] and in-ho use [...] ards and guide lines (Rich ards, PMID: [id number]; Ileana, PMID: [id number] [id number]). Detai led varia nt class ifica [...] isabell, allel ic discr imina tion qPCR roxanna noel c.*3+ 80T>G in SMN1 is perfo rmed. [...] e emma cteri stics deter mined by [employer]. It has not been clear ed or appro sriram by the Food and Drug Admin istra tion. [employer] is a subsi diary of Labor atory Corpo ratio n of FIGMD ngs, using the brand [facility] rp. Inher itest (R) and GeneS eq(R) are axel tered servi ce marroquin of Labor atory Corpo ratio n of eri me Cubbying ngs. Not Available [facility] ([facility]) [address] [facility], [place], [address], 10/03/2024 13:07:37 09/18/19 25 10/03/2024 INHER ITEST (R) CORE PANEL references Commen t Brandt HASSAN, Roxanna carver M, Dashawn an S et al. Scree lisa for autos omal reces sive and X-yanira ked condi tions durin g pregn sarah and preco ncept ion: a pract ice resou rce of the [employer] ge of Medic al Marco Antonio ics and Genom ics (AC ). Marco Antonio Med 23, 4851 (2020 ). PMID: [id number] Not Available [facility] ([facility]) [address] [facility], [place], [address], 10/03/2024 13:07:37 09/18/19 25 10/03/2024 INHER ITEST [...] omal reces sive: SMN1 Not Available [facility] ([facility]) [address] [facility], [place], [address], 10/03/2024 13:07:37 09/18/19 25 10/03/2024 INHER ITEST (R) CORE PANEL director review/relea Chelsie moser [place] nent Type Perfo rmed At Labor atory Direc tor Techn ical Esote carlos Marco Antonio ic Sheila Jones, PhD, compo nent, [facility], [facility] proce ssing [address] , [place], [address] Techn ical Esote cralos Marco Antonio ic Sheila Jones, PhD, compo nent, [facility], [employer] maik sis [address] , [place] [address] Profe agnieszkaon al Esote carlos Marco Antonio ic Sheila Jones, PhD, compo nent [facility], [facility] [address] [facility], [place], [address] Amanda dale relea sed by David Root , PhD, FAC Not Available [facility] ([facility]) [address] [facility], [place], [address], 10/03/2024 13:07:37 09/18/19 25 10/03/2024 INHER ITEST (R) CORE PANEL pdf . Not Available [facility] ([facility]) [address] [facility], [place], [address], 10/03/2024 13:07:37 09/18/19 25 10/03/2024 INHER ITEST (R) CORE PANEL patient gender Female Not Available [facility] ([facility]) [address] [facility], [place], [address], 10/03/2024 13:07:37 09/18/19 25 09/17/2024 urina lysis , dipst ick Leukocytes Trace Not Available [address], [address], 09/16/2024 16:35:06 09/18/19 25 09/17/2024 urina lysis , dipst ick Nitrite negati ve Not Available [address], [address], 09/16/2024 16:35:06 09/18/19 25 09/17/2024 urina lysis , dipst ick Urobilinogen .2 Not Available [address] [place], [address], 09/16/2024 16:35:06 09/18/19 25 09/17/2024 urina lysis , dipst ick Protein Negati ve Not Available [address], [address], 09/16/2024 16:35:06 09/18/19 25 09/17/2024 urina lysis , dipst ick pH 6.0 Not Available [address], [address], 09/16/2024 16:35:06 09/18/19 25 09/17/2024 urina lysis , dipst ick Blood Negati ve Not Available [address], [address], 09/16/2024 16:35:06 09/18/19 25 09/17/2024 urina lysis , dipst ick Specific [place] 1.020 Not Available [address], [address], 09/16/2024 16:35:06 09/18/19 25 09/17/2024 urina lysis , dipst ick Ketone Negati ve Not Available [address], [address], 09/16/2024 16:35:06 09/18/19 25 09/17/2024 urina lysis , dipst ick Bilirubin Negati ve Not Available [address], [address], 09/16/2024 16:35:06 09/18/19 25 09/17/2024 urina lysis , dipst ick Glucose Negati ve Not Available [address], [address], 09/16/2024 16:35:06 09/18/19 25 09/17/2024 urina lysis , dipst ick Appearance Clear Not Available [address], [address], 09/16/2024 16:35:06 09/18/19 25 09/17/2024 urina lysis , dipst ick Color Yellow Not Available [address], [address], 09/16/2024 16:35:06 10/23/19 25 10/22/2024 urina lysis , dipst ick Leukocytes Negati ve Not Available [address], [address], 10/21/2024 14:42:06 10/23/19 25 10/22/2024 urina lysis , dipst ick Nitrite negati ve Not Available [address], [address], 10/21/2024 14:42:06 10/23/19 25 10/22/2024 urina lysis , dipst ick Urobilinogen .2 Not Available [address], [address], 10/21/2024 14:42:06 10/23/19 25 10/22/2024 urina lysis , dipst ick Protein Negati ve Not Available [address] [place], [address], 10/21/2024 14:42:06 10/23/19 25 10/22/2024 urina lysis , dipst ick pH 6.0 Not Available [address] [place], [address], 10/21/2024 14:42:06 10/23/19 25 10/22/2024 urina lysis , dipst ick Blood Negati ve Not Available [address], [address], 10/21/2024 14:42:06 10/23/19 25 10/22/2024 urina lysis , dipst ick Specific [place] 1.020 Not Available [address], [address], 10/21/2024 14:42:06 10/23/1910/22/2024 urina lysis , dipst ick Ketone Negati ve Not Available [address], [address], 10/21/2024 14:42:06 10/23/19 25 10/22/2024 urina lysis , dipst ick Bilirubin Negati ve Not Available [address], [address], 10/21/2024 14:42:06 10/23/19 25 10/22/2024 urina lysis , dipst ick Glucose Negati ve Not Available [address], [address], 10/21/2024 14:42:06 10/23/1910/22/2024 urina lysis , dipst ick Appearance Clear Not Available [address], [address], 10/21/2024 14:42:06 10/23/19 25 10/22/2024 urina lysis , dipst ick Color Yellow Not Available [address], [address], 10/21/2024 14:42:06 12/18/1912/17/2024 urina lysis , dipst ick Leukocytes Negati ve Not Available [address], [address], 12/16/2024 20:31:06 12/18/1912/17/2024 urina lysis , dipst ick Nitrite negati ve Not Available [address], [address], 12/16/2024 20:31:06 12/18/1912/17/2024 urina lysis , dipst ick Urobilinogen .2 Not Available [address], [address], 12/16/2024 20:31:06 12/18/1912/17/2024 urina lysis , dipst ick Protein Negati ve Not Available [address], [address], 12/16/2024 20:31:06 12/18/1912/17/2024 urina lysis , dipst ick pH 6.0 Not Available [address], [address], 12/16/2024 20:31:06 12/18/19 25 12/17/2024 urina lysis , dipst ick Blood Negati ve Not Available [address] [place], [address], 12/16/2024 20:31:06 12/18/19 25 12/17/2024 urina lysis , dipst ick Specific [place] 1.020 Not Available [address], [address], 12/16/2024 20:31:06 12/18/1912/17/2024 urina lysis , dipst ick Ketone Negati ve Not Available [address], [address], 12/16/2024 20:31:06 12/18/19 25 12/17/2024 urina lysis , dipst ick Bilirubin Negati ve Not Available [address], [address], 12/16/2024 20:31:06 12/18/19 25 12/17/2024 urina lysis , dipst ick Glucose Negati ve Not Available [address], [address], 12/16/2024 20:31:06 12/18/19 25 12/17/2024 urina lysis , dipst ick Appearance Clear Not Available [address], [address], 12/16/2024 20:31:06 12/18/19 25 12/17/2024 urina lysis , dipst ick Color Yellow Not Available [address], [address], 12/16/2024 20:31:06 01/15/2001/14/2025 CBC WITH DIFFE RENTI AL/PL ATELE T WBC 10.8 x10e3 /uL 3.4-10 .8 normal Not Available [facility] ([facility]) [address] [place], [address], 01/15/2025 08:13:55 01/15/2001/14/2025 CBC WITH DIFFE RENTI AL/PL ATELE T RBC 3.29 x10e6 /uL 3.77-5 .28 below low normal Not Available [facility] ([facility]) [address] [place], [address], 01/15/2025 08:13:55 01/15/2001/14/2025 CBC WITH DIFFE RENTI AL/PL ATELE T hemoglobin 9.8 g/dL 11.1-1 5.9 below low normal Not Available [facility] ([facility]) [address] [place], [address], 01/15/2025 08:13:55 01/15/2001/14/2025 CBC WITH DIFFE RENTI AL/PL ATELE T hematocrit 30.0 % 34.0-4 6.6 below low normal Not Available [facility] ([facility]) [address] [place], [address], 01/15/2025 08:13:55 01/15/2001/14/2025 CBC WITH DIFFE RENTI AL/PL ATELE T MCV 91 fL 79-97 normal Not Available [facility] ([facility]) [address] [place], [address], 01/15/2025 08:13:55 01/15/2001/14/2025 CBC WITH DIFFE RENTI AL/PL ATELE T MCH 29.8 pg 26.6-3 3.0 normal Not Available [facility] ([facility]) [address] [place], [address], 01/15/2025 08:13:55 01/15/2001/14/2025 CBC WITH DIFFE RENTI AL/PL ATELE T MCHC 32.7 g/dL 31.5-3 5.7 normal Not Available [facility] ([facility]) [address] [facility], [place], [address], 01/15/2025 08:13:55 01/15/2001/14/2025 CBC WITH DIFFE RENTI AL/PL ATELE T RDW 12.5 % 11.7-1 5.4 Not Available [facility] ([facility]) [address] [facility], [place], [address], 01/15/2025 08:13:55 01/15/2001/14/2025 CBC WITH DIFFE RENTI AL/PL ATELE T platelets 264 x10e3 /uL 150-45 0 normal Not Available [facility] ([facility]) [address] [facility], [place], [address], 01/15/2025 08:13:55 01/15/2001/14/2025 CBC WITH DIFFE RENTI AL/PL ATELE T neutrophils 72 % not estab. normal Not Available [facility] ([facility]) [address] [place], [address], 01/15/2025 08:13:55 01/15/2001/14/2025 CBC WITH DIFFE RENTI AL/PL ATELE T lymphs 19 % not estab. normal Not Available [facility] ([facility]) [address] [place], [address], 01/15/2025 08:13:55 01/15/2001/14/2025 CBC WITH DIFFE RENTI AL/PL ATELE T monocytes 6 % not estab. normal Not Available [facility] ([facility]) [address] [facility], [place], [address], 01/15/2025 08:13:55 01/15/20 25 01/14/2025 CBC WITH DIFFE RENTI AL/PL ATELE T eos 2 % not estab. normal Not Available [facility] ([facility]) [address] [facility], [place], [address], 01/15/2025 08:13:55 01/15/2001/14/2025 CBC WITH DIFFE RENTI AL/PL ATELE T basos 0 % not estab. normal Not Available [facility] ([facility]) [address] [place], [address], 01/15/2025 08:13:55 01/15/2001/14/2025 CBC WITH DIFFE RENTI AL/PL ATELE T immature cells SUPPLY CHAIN BUSINESS ANALYST Not Available [facility] ([facility]) [address] [place], [address], 01/15/2025 08:13:55 01/15/2001/14/2025 CBC WITH DIFFE RENTI AL/PL ATELE T neutrophils (absolute) 7.8 x10e3 /uL 1.4-7. 0 above high normal Not Available [facility] ([facility]) [address] [place], [address], 01/15/2025 08:13:55 01/15/20 25 01/14/2025 CBC WITH DIFFE RENTI AL/PL ATELE T lymphs (absolute) 2.0 x10e3 /uL 0.7-3. 1 normal Not Available [facility] ([facility]) [address] [place], [address], 01/15/2025 08:13:55 01/15/20 25 01/14/2025 CBC WITH DIFFE RENTI AL/PL ATELE T monocytes(ab solute) 0.6 x10e3 /uL 0.1-0. 9 normal Not Available [facility] ([facility]) [address] [place], [address], 01/15/2025 08:13:55 01/15/20 25 01/14/2025 CBC WITH DIFFE RENTI AL/PL ATELE T eos (absolute) 0.2 x10e3 /uL 0.0-0. 4 normal Not Available [facility] ([facility]) [address] [facility], [place], [address], 01/15/2025 08:13:55 01/15/2001/14/2025 CBC WITH DIFFE RENTI AL/PL ATELE T baso (absolute) 0.0 x10e3 /uL 0.0-0. 2 normal Not Available [facility] ([facility]) [address] [facility], [place], [address], 01/15/2025 08:13:55 01/15/2001/14/2025 CBC WITH DIFFE RENTI AL/PL ATELE T immature granulocytes 1 % not estab. Not Available [facility] ([facility]) [address] [facility], [place], [address], 01/15/2025 08:13:55 01/15/2001/14/2025 CBC WITH DIFFE RENTI AL/PL ATELE T immature grans (abs) 0.1 x10e3 /uL 0.0-0. 1 Not Available [facility] ([facility]) [address] [facility], [place], [address], 01/15/2025 08:13:55 01/15/2001/14/2025 CBC WITH DIFFE RENTI AL/PL ATELE T NRBC [employer]LY[employer] Not Available [facility] [facility]) [address] [facility], [place], [address], 01/15/2025 08:13:55 01/15/2001/14/2025 CBC WITH DIFFE RENTI AL/PL ATELE T hematology comments: SUPPLY CHAIN BUSINESS ANALYST Not Available [facility] ([facility]) [address] [facility], [place], [address], 01/15/2025 08:13:55 01/15/2001/15/2025 RPR, RFX QN RPR/C ONFIR M TP RPR Non Reacti ve non reacti ve Not Available [facility] ([facility]) [address] [facility], [place], [address], 01/15/2025 08:13:56 01/15/2001/15/2025 GEST. DIABE FLASH 1-HR SCREE N gestational diabetes screen 144 mg/dL 70-139 above high normal Accor ding to ADA, a gluco se thres hold of >139 mg/dL after 50-gr am load ident ifies appro ximat caitlyn 80% of women with gesta mina l diabe flash melli tus, while the sensi tivit y is furth er incre ased to appro ximat caitlyn 90% by a thres hold of >129 mg/dL . Not Available [facility] ([facility]) [address] [facility], [place], [address], 01/15/2025 08:13:56 01/15/2001/14/2025 urina lysis , dipst ick Leukocytes Negati ve Not Available [address], [address], 01/13/2025 19:30:21 01/15/20 25 01/14/2025 urina lysis , dipst ick Nitrite negati ve Not Available [address], [address], 01/13/2025 19:30:21 01/15/2001/14/2025 urina lysis , dipst ick Urobilinogen .2 Not Available [address], [address], 01/13/2025 19:30:21 10/01/14/2025 urina lysis , dipst ick Protein Negati ve Not Available [facility] [address], [place], [address], 01/13/2025 19:30:21 01/15/2001/14/2025 urina lysis , dipst ick pH 7.0 Not Available [place] [address] [place], [address], 01/13/2025 19:30:21 01/15/2001/14/2025 urina lysis , dipst ick Blood Negati ve Not Available [place] [address] [place], [address], 01/13/2025 19:30:21 01/15/2001/14/2025 urina lysis , dipst ick Specific [place] 1.015 Not Available [place] [address] [place], [address], 01/13/2025 19:30:21 01/15/2001/14/2025 urina lysis , dipst ick Ketone Negati ve Not Available [address], [address], 01/13/2025 19:30:21 01/15/2001/14/2025 urina lysis , dipst ick Bilirubin Negati ve Not Available [place] [address] [place], [address], 01/13/2025 19:30:21 01/15/2001/14/2025 urina lysis , dipst ick Glucose Negati ve Not Available [place] [address] [place], [address], 01/13/2025 19:30:21 01/15/20 25 01/14/2025 urina lysis , dipst ick Appearance Clear Not Available [facility] [address] [place], [address], 01/13/2025 19:30:21 01/15/20 25 01/14/2025 urina lysis , dipst ick Color Yellow Not Available [facility] [address] [place], [address], 01/13/2025 19:30:21 01/20/20 25 01/20/2025 FE+TI BC+FE R iron bind.cap.(TI BC) 643 ug/dL 250-45 0 alert high Not Available [facility] ([facility]) [address] [place], [address], 01/20/2025 09:08:26 01/20/20 25 01/20/2025 FE+TI BC+FE R UIBC 593 ug/dL 131-42 5 above high normal Not Available [facility] ([facility]) [address] [place], [address], 01/20/2025 09:08:26 01/20/20 25 01/20/2025 FE+TI BC+FE R iron 50 ug/dL 27-159 normal Not Available [facility] ([facility]) [address] [place], [address], 01/20/2025 09:08:26 01/20/20 25 01/20/2025 FE+TI BC+FE R iron saturation 8 % 15-55 alert low Not Available [facility] ([facility]) [address] [place], [address], 01/20/2025 09:08:26 01/20/20 25 01/20/2025 FE+TI BC+FE R ferritin 9 NG/mL 15-150 below low normal Not Available [facility] ([facility]) [address] [place], [address], 01/20/2025 09:08:26 01/20/2001/19/2025 GESTA MINA L 3 HOUR GTT-N DDGC note: Commen t Diagn osis of gesta mina l diabe flash requi res that two or more high thres holds are excee ded. The nehemiah ance test is based on a 100 gm oral gluco se chall enge at 24 - 28 weeks of gesta tion. Not Available [facility] ([facility]) [address] [facility], [place], [address], 01/20/2025 09:08:27 01/20/2001/20/2025 GESTA MINA L 3 HOUR GTT-N DDGC glucose - fasting 86 mg/dL 65-104 Not Available [facility] ([facility]) [address] [place], [address], 01/20/2025 09:08:27 01/20/2001/20/2025 GESTA MINA L 3 HOUR GTT-N DDGC glucose - 1 hour 173 mg/dL 65-189 Not Available [facility] ([facility]) [address] [place], [address], 01/20/2025 09:08:27 01/20/20 25 01/20/2025 GESTA MINA L 3 HOUR GTT-N DDGC glucose - 2 hour 138 mg/dL 65-164 Not Available [facility] ([facility]) [address] [place], [address], 01/20/2025 09:08:27 01/20/2001/20/2025 GESTA MINA L 3 HOUR GTT-N DDGC glucose - 3 hour 120 mg/dL 65-144 Not Available [facility] ([facility]) [address] [place], [address], 01/20/2025 09:08:27 06/03/20 25 [place], obste tric No observ ation record ed. [email or web address] [place], [address], 08/19/2024 07:41:26 08/21/19 25 08/20/2024 US, obste tric No observ ation record ed. [email or web address] [facility] [address] [place], [address], 08/23/2024 18:14:12 10/22/19 [place], obste tric No observ ation record ed. MANUEL [facility] [address] [place], [address], 10/22/2024 09:32:01 11/20/19 25 11/19/2024 [place], obste tric No observ ation record ed. [address] [place], [address], 11/19/2024 12:32:34 11/20/1911/19/2024 , obste tric No observ ation record ed. [address] [place], [address], 11/19/2024 12:32:30 Result Notes None recorded. Problems Name Problem SNOMED Code Status Onset Date Resolution Date Notes Provider Name and Address Organization Details Recorded Time Acne 81973814 Active 2022 Briana Greer APRN [address] [place], [address], [place] [employer] 3 12:10:09 88473119 Active 2024 Katie rodriguez [employer] 5 15:36:25 Family history of complete trisomy 21 syndrome 838390268 Active 2024 Janice Lynne CNM [address] [place] [address], [address], [employer] 5 16:10:38 Family history of disorder 159029449 Active 2024 She has some FH down syndrome on her dad's side and FOB has a brother w Kleinfeltn er's syndrome; NIPT low risk/femal e Janice Lynne CNM [address] [place] [address], [address], [employer] 5 09:36:17 Family history of disorder 401034283 Active 2024 She has some FH down syndrome on her dad's side and FOB has a brother w Kleinfeltn er's syndrome; NIPT low risk/femal e Janice Lynne CNM [address] [place] [address], [address], [employer] 5 09:36:17 Anemia of 07294505 Active 2024 dx at 28 wks iron studies ordered oral iron initiated iron infusions requested Janice Lynne [employer] [address] [place] [address], [address], [employer] 5 15:27:15 Anemia of 67920347 Active 2024 dx at 28 wks iron studies ordered oral iron initiated iron infusions requested Janice VICKY [facility] [address] [place] [address], [address], [employer] 15:27:14 Iron deficiency anemia of 654827544 Active 2024 Janice Lynne [employer] [address] [place] [address], [address], [employer] 21:05:59 Problem Notes None recorded. Procedures Surgical History Date Name Laterality Status Provider Name and Address Organization Details Recorded Time 2 Date of Last Pap Smear completed Tram Arvizu [employer] 10/29/2023 11:28:33 Gallbladder Surgery completed Katie Peraza [employer] 08/20/2024 15:38:58 Imaging Results None recorded. Procedure [...] Address Organization Details Last Updated DateTime 5 162.56 cm 29.1 kg/m2 41874.9 8 g 76 /min 100 % 100 % 118/76 mm[Hg] [employer] 5 13:39:30 Date Recorded Body height Body mass index (BMI) Body weight Heart rate Oxygen saturation Oxygen saturation in Arterial blood by Pulse oximetry Systolic And Diastolic Provider Name and Address Organization Details Last Updated DateTime 5 162.56 cm 29.8 kg/m2 53704.9 2 g 82 /min 100 % 100 % 126/84 mm[Hg] [employer] 5 09:39:25 Date Recorded Body height Body mass index (BMI) Body weight Heart rate Oxygen saturation Oxygen saturation in Arterial blood by Pulse oximetry Systolic And Diastolic Provider Name and Address Organization Details Last Updated DateTime 5 162.56 cm 31.2 kg/m2 16464.0 9 g 111 /min 98 % 98 % 118/80 mm[Hg] [employer] 5 08:50:44 Date Recorded Body height Body mass index (BMI) Body weight Heart rate Oxygen saturation Oxygen saturation in Arterial blood by Pulse oximetry Systolic And Diastolic Provider Name and Address Organization Details Last Updated DateTime 5 162.56 cm 32.8 kg/m2 07163.8 6 g 103 /min 99 % 99 % 124/88 mm[Hg] [employer] 5 09:43:55 Date Recorded Body height Body mass index (BMI) Body weight Heart rate Oxygen saturation Oxygen saturation in Arterial blood by Pulse oximetry Systolic And Diastolic Provider Name and Address Organization Details Last Updated DateTime 5 162.56 cm 33.7 kg/m2 87730.2 6 g 112 /min 98 % 98 % 110/68 mm[Hg] [employer] 5 08:41:01 Social History Question Answer Notes LastModified by Organizat ion Details LastModified Time Tobacco Smoking Status Never Smoker SocialHist oryQuestio n: 'Tobacco/A lcohol/Sup plements'; SocialHist oryRespons e: 'Never Smoker'; Not Available [employer] 11/22/2021 23:01:21 If You Are , What Was Your Level Of Alcohol Consumption Prior To ? None [email or web address] Information not available 10/29/2023 What Is Your Level Of Caffeine Consumption? None [email or web address] Information not available 10/29/2023 What Was The Date Of Your Most Recent Tobacco Screening? 01/14/2025 [email or web address] Information not available 01/07/2025 Has Tobacco Cessation Counseling Been Provided? No Information not available 10/29/2023 Sex: Unknown Functional Status Question Answer Note LastModified by Organizat ion Details LastModified Time Do you use any illicit or recreational drugs? No [email or web address] Information not available 10/29/2023 Do you or have you ever used any other forms of tobacco or nicotine? No [email or web address] Information not available 10/29/2023 What is your level of alcohol consumption? None [email or web address] Information not available 10/29/2023 Mental Status None recorded. Family History Relationship Description Onset Age of this Age Resolved Age Notes LastModified by Organization Details LastModified Time Mother Heart disease 40 Not available 08/2024 09:39:45 Father Disorder of thyroid gland 59 Not available 08/2024 09:39:45 Medical History Condition Response Allergies (Food, seasonal, environmental ) Y Other N Hyperthyroidism N Breast Cancer N Blood Transfusion N Drug/Latex Allergies/Reactions N Emergency room visit since last appointm ent. N Dermatologic Disorders N Hypothyroidism N Lung Disease N Defects or Inherited Disease N Breast [...] Condition N Organ Transplant N Schizophrenia N Dialysis N Fibromyalgia N Headaches N Kidney Disease N Heart [...] 50 mcg/0.25mL dose 1 completed Talia rodriguez, [employer] 05/11/2022 11:43:24 COVID-19, mRNA, LNP-S, PF, 100 mcg/0.5mL dose or 50 mcg/0.25mL dose 1 completed Talia rodriguez, [employer] 05/11/2022 11:43:24 Tdap 5 completed Katie Edon null, [employer] 01/14/2025 09:19:26 Influenza, split virus, trivalent, preservative 4 completed Not Available [facility] 01/14/2025 08:34:49 Past Encounters Encounter ID Performer Location Encounter Start Date Encounter Closed Date Diagnosis/Indication Diagnosis SNOMED-CT Code Diagnosis ICD10 Code Diagnosis IMO Codes Diagnosis Note [id number] [facility] [address] [address] 12/16/2021 09:00:05 12/16/2021 09:39:16 Gynecologic examination 99526712 Z01.419 Screening for malignant neoplasm of cervix 629049773 Z12.4 [id number] Briana Greer Formerly [facility], [facility] r [address] [place] Grey [id number] 05/11/2022 11:33:34 05/11/2022 12:07:00 Acne 16230182 L70.9 [id number] Briana Greer APRN 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 [address] [place] [id number] 08/20/2024 14:58:43 08/20/2024 16:16:14 Intrauterine 98489702 Z34.90 [id number] Family his tory of complete trisomy 21 syndrome 346750896 Z82.79 [id number] offered NIPT Family his tory of disorder 565541819 Z82.79 [id number] offered NIPT and SCA [id number] [facility] [address]aden r [address] [place] [id number] 09/17/2024 13:29:16 09/17/2024 14:00:09 Normal 89675538 Z34.91 17002235 [id number] [facility] [address] [place] [address] 10/22/2024 09:31:58 10/22/2024 09:58:52 Intrauterine 64977478 Z34.90 [id number] [facility] [address] [place] [id number] 11/19/2024 08:03:09 11/19/2024 09:27:45 Intrauterine 89255602 Z34.90 [id number] [id number] Janice Lynne CNM [facility] [address] [place] [id number] 12/17/2024 09:33:08 12/17/2024 10:13:30 Intrauterine 14619551 Z34.90 [id number] Janice Lynne CNM [facility] [address] [place] [id number] 01/14/2025 08:34:20 01/14/2025 10:16:01 Intrauterine 67932267 Z34.90 [id number] Health Concerns Section Related Observation LastModified by Organization Detai ls LastModified Time None Recorded Concern Status LastModified by Organization Details LastModified Time None Recorded Advance Directives Directive None Recorded Payers Insurance Date Sequence Insurance Name Policy Number Policy Austin Covered Member ID Austin Member ID Guarantor Name 08/20/2024 1 [place] [id number] Johana L Higginbotham [id number] Johana L Higginbotham 01/24/2025 1 [facility] (MEDICAID HMO) Johana L Higginbotham [id number] Johana L Higginbotham 08/07/2022 1 [place] [id number] Dorene L Higginbotham [id number] Johana L Higginbotham Notes Date Note Type Note Provider Name and Address Organization Details Recorded Time 09/17/2024 text/html Generic HPI TemplateReported by PatientROS as noted in the HPI Pt is [id number] She presents for care She is taking her vitamins She reports no vaginal bleeding or LOF She denies any abd pain/contraction pattern She denies headache or visual disturbances Janice Lynne CNM [address] [place], [address], [employer] 09/17/2024 13:54:25 10/22/2024 text/html Generic HPI TemplateReported by PatientROS as noted in the HPI Pt is 16w2d gestation She presents for care She is taking her vitamins She reports no vaginal bleeding or LOF She denies any abd pain/contraction pattern She denies headache or visual disturbances Janice Lynne CNM [address] [place], [address], [employer] 10/22/2024 09:57:47 11/19/2024 text/html Generic HPI TemplateReported by PatientROS as noted in the HPI Pt is 20w2d gestation She presents for care She is taking her vitamins She reports no vaginal bleeding or LOF She denies any abd pain/contraction pattern She denies headache or visual disturbances Janice Lynne CNM [address] [place], [address], [employer] 11/19/2024 09:05:15 12/17/2024 text/html Generic HPI TemplateReported by PatientROS as noted in the HPI Pt is 24w2d gestation She presents for care She is taking her vitamins She reports no vaginal bleeding or LOF She denies any abd pain/contraction pattern She denies headache or visual disturbances Janice Lynne CNM [address] [place], [address], [employer] 12/17/2024 10:12:10 01/14/2025 text/html Generic HPI TemplateReported by PatientROS as noted in the HPI Pt is 28w2d gestation She presents for care She is taking her vitamins She reports no vaginal bleeding or LOF She denies any abd pain/contraction pattern She denies headache or visual disturbances Janice Lynne CNM [address] [place], [address], [employer] 01/14/2025 09:17:35 OBGyn Episode Ob Episode Information Episode Created Date Number of Fetuses Patient Bloodtype Patient rh Status Prepregnancy Weight lbs Domestic Partner Domestic Partner Phone Father Name Print Project Manager Status 08/21/19 25 1 Ab Positive OPEN Fetus Data First Name Last Name Admitted to NICU Weight (g) Sex Living Outcome Pediatric Complications Fetus ID Race Codes Race Delivery Type [id number] Problems Problem Notes plans to deliver at [facility] risk/female Dorene Wendy /breast/epidural ? peds ? pp contraglucola done: failed passed the 3 hr tdap given Problem Name Start Date End Date Resolution Snomed Code Not e Anemia of 01/15/2025 79845008 dx at 28 wks iron studies ordered oral iron initiated iron infusions requested Family history of disorder 08/20/2024 376825808 She has some FH down syndrome on [...] Date Ultra Sound Latest Days Gestation 0 [email or web address] 08/20/2024 04/06/19 26 0 Pre-jong Flowsheet Flowsheet Date 08/20/2024 Desai Score Blood Edema Fundus Height Fundus Units Glucose Ketones Leukocytes Nitrite Labor Signs Protein Cervic Dilation Cervic Effacement Cervic Station none none Type Weight in lbs Pre/Post Dialysis Refused With clothes 166.702908773000 BP Diastolic BP Location Tested BP Systolic [...] in lbs Pre/Post Dialysis Refused With clothes 169.031799910551 BP Diastolic BP Location Tested BP Systolic [...] in lbs Pre/Post Dialysis Refused With clothes 173.906402002504 BP Diastolic BP Location Tested BP Systolic [...] in lbs Pre/Post Dialysis Refused With clothes 181.507578803027 BP Diastolic BP Location Tested BP Systolic [...] in lbs Pre/Post Dialysis Refused With clothes 191.96053700970 BP Diastolic BP Location Tested BP Systolic [...] in lbs Pre/Post Dialysis Refused With clothes 196.011235111413 BP Diastolic BP Location Tested BP Systolic [...] At Estimated Date of Delivery false Thalassemia (Estonian, Serbian, Mediterranean, Or Background): MCV < 80 false Neural Tube Defect (Meningom yelocele, Spina Bifida, Or Anencephaly) false Congenital Heart Defect false Down Syndrome true her father's malika e of the family Saurabh-Sachs (eg, Hoahaoism, Cajun , Portuguese-[place]) false Sue Disease false Sickle Cell Disease Or Trait () false Hemophilia Or Other Blood Disorders false Muscular Dystrophy false Cystic Fibrosis false Seth's Chorea false Intellectual Disability/Autism false If Yes, Was Person Tested For Fragile X? false Other Inherited Genetic Or C hromosomal Disorder true his brother has Veritocashserene 's Maternal Metabolic Disorder (eg, Type 1 [...]
[2025-01-26 19:32] LABS: Bilirubin,Urine Negative (Negative); Color,Urine YELLOW (Yellow); Glucose,Urine (UA) Negative (Negative); Ketones,Urine Negative (Negative); Leukocyte Esterase,Urine Negative (Negative); PH,Urine 7.0 (5.0-8.5); Protein,Urine Negative (Negative); Specific Gravity, Urine 1.010 (1.005-1.030); Urobilinogen,Urine 0.2 EU/dl (0.2)
[2025-01-26 19:34] VITALS: BP 127/84; PULSE 103; RESP 20; TEMP 36.7; O2SAT 96
[2025-01-26 20:39] LABS: Bacteria,Urine 4+ /lpf; Squamous Epithelial Cell,Urine 20-50 #/hpf (0-5); WBC,Urine 20-50 #/hpf (0-3)
== END 2025-01-26 19:35 | disposition home or self-care (01) ==
PROVIDERS: Emergency Provider Student in an Organized Health Care Education/Training Program; PCP Family Medicine
DX: O26.893 Other specified pregnancy related conditions, third trimester (principal); R10.30 Lower abdominal pain, unspecified; S16.1XXA Strain of muscle, fascia and tendon at neck level, initial encounter; Z3A.30 30 weeks gestation of pregnancy; V49.40XA Driver injured in collision with unspecified motor vehicles in traffic accident, initial encounter
CPT/HCPCS: 81001; 87086; 99285

== ENCOUNTER 2025-01-26 19:51 | Outpatient (CLI) | payer OTHER, SELFPAY ==
--- OUTSIDE RECORDS SUMMARY | 2024-12-11 14:45 | XMS_ITS | Encounter Summary ---
Author Organization [facility] Address [address] [place] [address] Care Team Providers Care Paint Booth Operator Name Role Phone RichyPromise osuna Sierra NICHOLSON Primary Care Provider [phone] Reason for Visit * Reason Comments Contact Lens Visit Encounter Details Date Type Department Care Team (Late st Contact Info) Description 12/11/2024 3:45 PM EDT Office Visit [facility] [address] [place] [address] French Corral, OD [address] [address] Keratoconus of both eyes (Primary Dx); Myopia of both eyes with astigmatism Social History Tobacco Use Types Packs/Day Years Used Date Smoking Tobacco: Never Passive Smoke Exposure: Never Smokeless Tobacco: Never Comments Unknown Sex and Gender Information Value Date Recorded Sex Assigned at Not on file Legal Sex Female 12:53 PM EDT Gender Identity Not on file Sexual Orientation Not on file documented as of this encounter Miscellaneous Notes * Progress Notes - French Corral, OD - 12/11/2024 3:45 PM EDT 12/11/2024 Subjective Patient ID: Joahna Higginbotham is a 29 y.o. female. Chief Complaint Contact Lens Visit HPI 29 yo female presents in clinic for 1 month scleral lens check. Patient denies any discomfort or pain while wearing scleral lenses. She notes that when she is looking at lights there is a fog/haze around the lights. Wears for approx 4-5 hours/day Last edited by Magdiel Sanford on 12/11/2024 3:54 PM. No current outpatient medications on file. (Ophthalmic Drugs) No current facility-administered medications for this visit. (Ophthalmic Drugs) Current Outpatient Medications (Other) Medication Sig FLUoxetine (PROzac) 20 MG capsule Take 2 capsules (40 mg) by mouth daily. levocetirizine (Xyzal) 5 MG tablet pantoprazole (ProtoNix) 20 MG EC tablet Take 1 tablet (20 mg) by mouth daily before breakfast. Do not crush, chew, or split. Vit-DSS-Fe Cbn-FA ( ADVANTAGE PO) Take by mouth. amoxicillin (Amoxil) 500 MG capsule Take 500 mg by mouth 3 (three) times a day. (Patient not taking: Reported on 11/05/2024) amoxicillin-clavulanate (Augmentin) 500-125 MG tablet TAKE 1 TABLET BY MOUTH TWICE A DAY FOR 7 DAYS(Patient not taking: Reported on 09/18/2024) azithromycin (Zithromax) 250 MG tablet TAKE 2 TABLETS BY MOUTH TODAY, THEN TAKE 1 TABLET DAILY FOR 4 DAYS (Patient not taking: Reported on 11/05/2024) lvqdzhipnvbiisl-kqxknkfzutymnlg-AA 30-2-10 MG/5ML syrup TAKE 1 2 TEASPOON BY MOUTH EVERY 4 TO 6 HOURS (150 QTY) (Patient not taking: Reported on 11/05/2024) clindamycin (Cleocin T) 1 % external solution APPLY TO AFFECTED AREA EVERY DAY (Patient not taking:Reported on 11/05/2024) Dextromethorphan-guaiFENesin ([employer] Mucus DM Extended Release) 60-1200 MG tablet sustained-release 12hour Take 1 tablet by mouth 1 (one) time each day. (Patient not taking: Reported on 11/05/2024) fluticasone (Flonase) 50 MCG/ACT nasal spray SPRAY 1 SPRAY IN EACH NOSTRIL DAILY (Patient not taking: Reported on 11/05/2024) hydroquinone 4 % cream APPLY TO AREA TWICE DAILY (Patient not taking: Reported on 11/05/2024) ibuprofen 800 MG tablet Take 800 mg by mouth 3 (three) times a day. (Patient not taking: Reported on 11/05/2024) montelukast (Singulair) 10 MG tablet (Patient not taking: Reported on 11/05/2024) nujbsjvuhogl-ysddsguo-ujcda acid-coenzyme q10 (Preservision AREDS 2) capsule Take 1 capsule by mouth daily. (Patient not taking: Reported on 12/11/2024) omeprazole (PriLOSEC) [address] capsule Take by mouth 1 (one) time each day. (Patient not taking: Reported on 11/05/2024) ondansetron ODT (Zofran-ODT) 4 MG disintegrating tablet (Patient not taking: Reported on 11/05/2024) pantoprazole (Protonix) 40 MG EC tablet Take 1 tablet by mouth daily before breakfast. Do not crush, chew, or split. (Patient not taking: Reported on 11/05/2024) predniSONE (Deltasone) 10 MG tablet TAKE 6 TABLETS ON DAY 1 DIRECTED AND DECREASE BY 1 TAB EACH DAY FOR A TOTAL OF 6 DAYS (Patient not taking: Reported on 11/05/2024) tretinoin (Retin-A) 0.05 % cream APPLY TOPICALLY DIRECTED (Patient not taking: Reported on 11/05/2024) Tri-Estarylla 0.18/0.215/0.25 MG-35 MCG tablet Take 1 tablet by mouth 1 (one) time each day. (Patient not taking: Reported on 11/05/2024) No current facility-administered medications for this visit. (Other) ROS Positive for: Eyes Negative for: Constitutional, Gastrointestinal, Neurological, Skin, Genitourinary, Musculoskeletal,HENT, Endocrine, Cardiovascular, Respiratory, Psychiatric, Allergic/Imm, Heme/Lymph Last edited by Magdiel Sanford on 12/11/2024 3:54 PM. Referring physician: No referring provider defined for this encounter. Objective Base Eye Exam Visual Acuity (Snellen - Linear) Right Left Dist cc 20/20 20/20 Correction: Contacts Tonometry Defer. Pupils Pupils APD Right PERRL None Left PERRL None Visual Buckley Right Left Full Full Extraocular Movement Right Left Full Full Neuro/Psych Oriented x3: Yes Mood/Affect: Normal Dilation No dilation Slit Lamp and Fundus Exam External Exam Right Left External Normal Normal Slit Lamp Exam Right Left Lids/Lashes Normal for age Normal for age Conjunctiva/Sclera Normal Normal Cornea Subtle keratoconus? Subtle keratoconus? Anterior Chamber Deep and quiet Deep and quiet Iris Normal pupil size and shape Normal pupil size and shape Lens Clear Clear Contact Lens Exam Current Contact Lens Rx (Trial Lens) Brand Base Curve Diameter Sphere Addl. Specs Dist VA Centration Movement Over-Sphere Right Onefit 2.0 7.6 14.9 -3.62 See invoice 20/20 Well-centered Adequate +0.50 Left Onefit 2.0 7.6 14.9 -3.00 See invoice 20/20 Well-centered Adequate +0.00 Additional Notes Right eye: Change to 7.8; over-refraction needed; add Tangible-HydraPEG Left eye: Change to 7.7; add Tangible-HydraPEG Tobacco Use: Low Risk (12/11/2024) Patient History Smoking Tobacco Use: Never Smokeless Tobacco Use: Never Passive Exposure: Never The patient has been counseled on tobacco cessation: Not Applicable I personally reviewed outside records from [facility] service regarding patient's ocular health/keratoconus for management/treatment of this patient. I explained the diagnoses, plan, and follow up with the patient and they expressed understanding. Patient expressed understanding of the importance of proper follow up care. 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 Keratoconus of both eyes (Primary) 2. Myopia of both eyes with astigmatism Order for medically necessary contact lenses due to bilateral keratoconus. Currently managed by [facility]/Dr. Rashid Vale. Emphasized importance of avoiding eye rubbing. Instructed patient to continue care with corneal specialist. Excellent vision with current scleral lenses #1 for both eyes dispensed 11/05/24. Some modificationsrequired for improved fit, will consult with laboratory/Francisco and order warranty remake. Emphasized importance of proper contact lens care and hygiene practices, including adherence to conventional replacement schedule and avoidance of sleeping, showering, or swimming in lenses. Patient to discontinue contact lens wear with any redness, pain, or blurry vision, and return immediately to clinicfor evaluation. Monitor in 4-6 weeks with contact lens check when new lenses arrive. No follow-ups on file. Electronically signed by: French Corral OD 12/16/2024 2:59 PM documented in this encounter Plan of Treatment Upcoming Encounters Date Type Department Care Team (Late st Contact Info) Description 02/03/2025 11:00 AM EST Office Visit [facility] [address] [place] [address] Roma Vaz Rekha [address] [place] [id number] 04/23/2025 9:30 AM EST Office Visit [facility] [address] [place] [address] Rashid Vale MD [address] [address] documented as of this encounter Visit Diagnoses Diagnosis Keratoconus of both eyes- Primary Myopia of both eyes with astigmatism documented in this encounter Additional Health Concerns Assessment Noted Time A fall risk assessment has been complete d for the patient 09/18/2024 9:30 AM EDT A Body Mass Index follow-up plan has been documented for the patient 05/20/2024 2:22 PM EST documented as of this encounter Care Teams Paint Booth Operator Relationship Specialty Start Date End Date Promise Green DO [address] [place] [address] PCP - General 09/21/20 documented as of this encounter
--- OUTSIDE RECORDS SUMMARY | 2025-01-26 19:55 | XMS_ITS | Clinical Summary ---
Author Organization [facility] Address [address] [place] [address] Care Team Providers Care Varying Exceptionalities Teacher Name Role Phone Promise Green DO Primary Care Provider [phone] Allergies No known active allergies Medications amoxicillin [...] Do not crush, chew, or split. Active multivitamin-legal instruments examiner als-folic acid-coenzyme q10 (Preservision AREDS 2) [...] Type Department Care Team Description 12/24/2024 Telephone [facility] [address] [place] [address] French Corral, OD 12/11/2024 3:45 PM EDT Office Visit [facility] [address] [place] [address] French Corral, OD Keratoconus of both eyes (Primary Dx); Myopia of both eyes with astigmatism 12/11/2024 Travel 12/10/2024 Travel 12/07/2024 Travel 11/05/2024 11:00 AM EDT Office Visit [facility] [address] [place] [address] French Corral, OD Keratoconus of both eyes (Primary Dx); Myopia of both eyes with astigmatism 11/05/2024 Travel 11/04/2024 Travel from Last 3 Months Immunizations Immunization Administration Dates Next Due Moderna COVID-19 Vaccine (Manager Service Desk) 12+ years 06/2020,03/23/2020 Family History Medical History [...] Description 02/03/2025 11:00 AM EST Office Visit [facility] [address] [place] [phone] Roma Vaz [address] [place] [address] 04/23/2025 9:30 AM EST Office Visit [facility] [address] [place] [address] Rashid Vale MD [address] [place] [address] Health Maintenance Due Date Last Done Comments [facility]-Depression Screening 1996 [facility]-HIV Screening 1996 [facility]-Hepatitis C Screening 1996 [facility]-/Child/Adol SDOH Screenings 1996 [facility]-Varicella Vaccines (1 of 2 - 13+ 2-dose series) 2009 [facility]- SDOH Screenings 2014 [facility]-Adult SDOH Screenings 2014 [facility]-Hepatitis B Vaccines (1 of 3 - 19+ 3-dose series) 06/22/2015 [facility]-Zoster Vaccines (1 of 2) 06/22/2015 [facility]-Pap Smear 2017 AMA-KXCWK-19 Vaccine (3 - Moderna risk series) 05/20/2020 [...] Insurance [employer] Care Teams Varying Exceptionalities Teacher Relationship Specialty Start Date End Date Promise Green DO [address] [place] [address] PCP - General 09/21/20
--- OUTSIDE RECORDS SUMMARY | 2025-01-26 19:55 | XMS_ITS | Clinical Summary ---
[facility] Organization [facility] Address [address] [place] [address] Care Team Providers Care Lifeguard Name Role Phone Tram Calderón MD Primary [...] complete this topic Insurance PPO Care Teams Lifeguard Relationship Specialty Start Date End Date Tram aClderón MD [address] [place] [address] PCP - General Pediatrics 12/07/15
--- OUTSIDE RECORDS SUMMARY | 2025-01-26 19:56 | XMS_ITS | Encounter Summary ---
Author Organization [facility] Address [address] [place] [address] Care Team Providers Care Solution Consultant Name Role Phone Promise Green Primary Care Provider [phone] Encounter Details Date Type Department Care Team (Late Contact Info) Description 12/24/2024 Telephone [facility] [address] [place] [address] French Corral OD [address] [address] Social History Tobacco Use Types [...] Description 02/03/2025 11:00 AM EST Office Visit [facility] [address] [place] [address] Roma Vaz [address] [place] [address] 04/23/2025 9:30 AM EST Office Visit [facility] [address] [place] [address] Rashid Vale MD [address] [facility] [address] [place] [phone] documented as of this encounter Visit Diagnoses Not on filedocumented in this encounter Additional Health Concerns Assessment Noted Time A fall risk assessment has been complete d for the patient 09/18/2024 9:30 AM EDT A Body Mass Index follow-up plan has been documented for the patient 05/20/2024 2:22 PM EST documented as of this encounter Care Teams Solution Consultant Relationship Specialty Start Date End Date Promise Green DO [address] [place] [address] PCP - General 09/21/20 documented as of this encounter
--- OUTSIDE RECORDS SUMMARY | 2025-01-26 19:56 | XMS_ITS | Encounter Summary ---
Author Organization [facility] Address [address] [place] [address] Care Team Providers Care Television Host Name Role Phone RichyPromise osuna Sierra NICHOLSON Primary Care Provider [phone] Encounter Details Date Type Department Care Team [...] Description 02/03/2025 11:00 AM EST Office Visit [facility] [address] [place] [address] Roma Vaz [address] [place] [id number] 04/23/2025 9:30 AM EST Office Visit [facility] [address] [place] [address] Rashid Vale MD [address] [address] documented as of this encounter Visit Diagnoses Not on filedocumented in this encounter Additional Health Concerns Assessment Noted Time A fall risk assessment has been complete d for the patient 09/18/2024 9:30 AM EDT A Body Mass Index follow-up plan has been documented for the patient 05/20/2024 2:22 PM EST documented as of this encounter Care Teams Television Host Relationship Specialty Start Date End Date Promise Green DO [address] [place] [address] PCP - General 09/21/20 documented as of this encounter
--- OUTSIDE RECORDS SUMMARY | 2025-01-26 19:56 | XMS_ITS | Encounter Summary ---
Author Organization [facility] Address [address] [place] [address] Care Team Providers Care Cocktail Waitress Name Role Phone RichyPromise osuna Sierra NICHOLSON Primary Care Provider [phone] Encounter Details Date Type Department Care Team [...] Description 02/03/2025 11:00 AM EST Office Visit [facility] [address] [place] [address] Roma Vaz [address] [place] [id number] 04/23/2025 9:30 AM EST Office Visit [facility] [address] [place] [address] Rashid Vale MD [address] [address] documented as of this encounter Visit Diagnoses Not on filedocumented in this encounter Additional Health Concerns Assessment Noted Time A fall risk assessment has been complete d for the patient 09/18/2024 9:30 AM EDT A Body Mass Index follow-up plan has been documented for the patient 05/20/2024 2:22 PM EST documented as of this encounter Care Teams Cocktail Waitress Relationship Specialty Start Date End Date Promise Green DO [address] [place] [address] PCP - General 09/21/20 documented as of this encounter
--- OUTSIDE RECORDS SUMMARY | 2025-01-26 19:56 | XMS_ITS | Encounter Summary ---
Author Organization [facility] Address [address] [place] [address] Care Team Providers Care Craft Superintendent Name Role Phone RichyPromise osuna Sierra NICHOLSON Primary Care Provider [phone] Encounter Details Date Type Department Care Team [...] Description 02/03/2025 11:00 AM EST Office Visit [facility] [address] [place] [address] Roma Vaz [address] [place] [id number] 04/23/2025 9:30 AM EST Office Visit [facility] [address] [place] [address] Rashid Vale MD [address] [address] documented as of this encounter Visit Diagnoses Not on filedocumented in this encounter Additional Health Concerns Assessment Noted Time A fall risk assessment has been complete d for the patient 09/18/2024 9:30 AM EDT A Body Mass Index follow-up plan has been documented for the patient 05/20/2024 2:22 PM EST documented as of this encounter Care Teams Craft Superintendent Relationship Specialty Start Date End Date Promise Green DO [address] [place] [address] PCP - General 09/21/20 documented as of this encounter
[2025-01-26 20:11] VITALS: BMI 34.7
[2025-01-26] MEDS: ACETAMINOPHEN 500MG TAB 1000 MG PO (20:22)
[2025-01-26 20:48] VITALS: BP 108/59; PULSE 92; RESP 16; TEMP 36.6; O2SAT 98; BMI 34.7
[2025-01-26 20:50] LABS: Hematocrit 28.1 % (37.0-47.0); Hemoglobin 9.4 g/dL (12.2-16.2); Immature Granulocytes % 0.7 %; Mean Corpuscular HGB Conc 33.5 g/dL (31.8-35.4); Mean Corpuscular Hemoglobin 29.1 pg (27.0-31.2); Mean Corpuscular Volume 87.0 fl (81-99); Nucleated Red Blood Cells % 0 %; Platelet Count 270 K/mm3 (142-424); Red Blood Count 3.23 M/mm3 (4.20-5.40); Red Cell Distribution Width-SD 40.9 fL; White Blood Count 12.3 K/mm3 (4.8-10.8)
[2025-01-26] MEDS: 0.9 % SODIUM CHLORIDE 1000ML 1,000 ML 999 ML IV (21:37)
== END 2025-01-27 00:19 | disposition home or self-care (01) ==
LOC: OBOUT 19:53 → OB 19:54
PROVIDERS: PCP Family Medicine; Visit Provider Obstetrics & Gynecology
DX: Z34.03 Encounter for supervision of normal first pregnancy, third trimester (principal); Z36.89 Encounter for other specified antenatal screening; V89.2XXA Person injured in unspecified motor-vehicle accident, traffic, initial encounter; Z3A.30 30 weeks gestation of pregnancy
CPT/HCPCS: 85025; 86850; 99213; J7030